=== PATIENT | male | born 1945 | race Caucasian/White ===

== ENCOUNTER → 2016-06-03 | Outpatient (CLI) | payer MEDICARE ==
[~2016-06-03] VITALS: Ht 182.9 cm; Wt 100.7 kg
[~2016-06-03] MED LIST: ASPI81TA28 PO; CARV25TA2 PO; CITA20TA9 PO; CLX/20 PO; CRG25 PO; CRS10 PO; DSY100 PO; GLCSR10 PO; GLIP-197 PO; HYDR25TA4 PO; HYDR25TA5 PO; INSU100I2 SC; LEVO50TA60 PO; LSNP/30 PO; METF-382 PO; METF-384 PO; NTRGSL/4 UT; PRT/40 PO; PRT40 PO; REPA1TAB5 PO; ROSU10TA24 PO; SYN50 PO; TRAZ100T29 PO
[2016-06-03 12:58] VITALS: BP 170/78; PULSE 61; Ht 182.9 cm; Wt 100.7 kg
== END | disposition home or self-care (01) ==
LOC: C.NEUR 12:47
PROVIDERS: ATTEND Internal Medicine Pulmonary Disease
DX: G47.30 Sleep apnea, unspecified (principal)

== ENCOUNTER → 2016-07-15 | Outpatient (CLI) | payer MEDICARE ==
[~2016-07-15] MED LIST changes: +PANT40TA2 PO; -PRT/40 PO
--- NOTE | 2016-07-16 06:41 | PAP/PSG TECHNICIAN REPORT ---
[facility] Wire Stretcher Polysomnogram Report Study name: None Report date: 07/16/2016 Study date: 07/15/2016 Referring Physician: DR. PADGETT Name: KO GALLAGHER Interpreting Physician: Koffi Loredo D.O. Date of : 1945 Wire Stretcher: Tomás Borrego RPSGT. Sex: Male Age: 70 StudyType: PSG Weight: 16.5 inches Height: 70 years, Height Neck Circum: BMI: Medications: ASPIRIN 81 MG, CARVEDILOL 12. 5MG, CELEXA 20 MG, CRESTOR 10 MG, GLIPIZIDE, GLYBURIDE, HYDROCHLOROTHIAZIDE 25MG, LEVOTHYROXINE SODIUM 50 MCG, LISINOPRIL 20 MG, METFORMIN HCL 1000 MG, NITROGLYCERIN 0.4 MG, PANTOPRAZOLE SODIUM 40 MG, TRAZODONE HCL 100 MG, Patient History PATIENT HAS HISTORY OF SNORING, DAYTIME FATIGUE AND DIFFICULTY MAINTAINING SLEEP. HE ALSO HAS HISTORY OF HYPERTENSION, GERD AND CORONARY ARTERY DISEASE. HE IS HERE TODAY FOR AN EVALUATION OF BRONSON. ESS = 7 RM 5 Parameters Monitored NPSG: E1-M2, E2-M1, Fp1-M2, Fp2-M1, F3-M2, F4-M2, F4-M1, C3-M2, C4-M2, C4-M1, O1-M2, O2-M2, O2-M1, T3-M2, T4-M1, P3-M2, P4-M1, CHIN1, CHIN2, HR, EKG, Legs, PFLOW, SNOR, FLOW, CFLOW, Tidal Volume, THOR, ABDO, SpO2, PLTH, CPRESS, ETCO2 Wave, ETCO2, pH Sleep Architecture Sleep Stages Time at Lights Off 10:03:49 PM STAGES Time (min.) TST (%) Time at Lights On 5:30:49 AM Wake 102.5 -- Total Recording Time (TRT) 447.50 min. N1 24.0 7 Total Sleep Period (TSP) 412.0 min. N2 205.0 60 Total Sleep Time (TST) 344.5min. N3 72.5 21 Awake Time 103.0 min. REM 43.0 12 Wake after Sleep Onset 68.0 min. Sleep Efficiency (SE) 77 % Sleep Onset Latency (ROSEMARY) 34.5 min. Number of Stage 1 Shifts None Awakenings 24 Stage Changes 91 Number of REM periods 10 REM 43.0 12 REM Latency 126.0 min. NREM 301.5 88 Body Position Analysis Supine Right Left Side Prone Vertical Total Sleep Time (min.) 9.8 0.0 341.9 341.93 0.0 0.0 Total Sleep Time (%) 1% 0% 99% 99 0% N/A% Total Sleep Time REM (min.) 0.0 0.0 43.0 None 0.0 0.0 Total Sleep Time NREM (min.) 2.6 0.0 298.9 None 0.0 0.0 Intermittent Wake (min.) 7.2 0.0 95.3 None 0.0 0.0 Total Sleep Period (%) 1% None None None None None Arousals Myoclonus (PLM) * Events Count Index Events Count Index Spontaneous 25 4 Events Awake (PLMW) 66 38.6 Respiratory 6 1.7 Events Asleep w/ Arousal (PLMA) 5 0.9 PLM 5 1 Events Asleep w/o Arousal (PLMS) 59 10.3 Snoring 2 0 Total Asleep 64 11.1 Total 38 7 Total 130 17 Respiratory Analysis * CA OA MA CH H RERA Total Count 0 0 0 0 46 1 46 Index 0.0 0.0 0.0 0 8.0 0 8.2 Mean Duration 0.0 0.0 0.0 0.00 20.1 21.2 20.2 Longest Duration 0.0 0.0 0.0 0.00 0.0 21.2 34.4 Respiratory Event Summary Total Supine ~Supine Right Left Prone REM NREM Apneas Count 0 0 0 N/A 0 N/A 0 0 Index 0.0 0 0 N/A 0.0 N/A 0 0 Hypopneas (4% Desat) Count 46 3 43 N/A 43 N/A 8 38 Index 8.0 70.1 8 N/A 7.5 N/A 11.2 7.6 Apneas & All Hypopneas Count 46 3 43 N/A 43 N/A 8 38 Index 8.0 70 8 N/A 8 N/A 11.2 7.6 Respiratory Events (Knock Up Assembler+All Hyp+RERA) Count 46 3 44 N/A 44 N/A 8 38 Index 8.2 70 8 N/A 7.7 N/A 11.2 7.8 Respiratory Related Arousal Count 6 3 7 N/A 7 N/A 1 9 Index 1.7 70 1 N/A 1 N/A 1 2 Snoring Analysis Supine Right Left Prone REM NREM Total Snore duration 8.3 min Snores count 0 N/A 531 N/A 3 528 531 Snore mean duration 0.9 Sec Snores index 0 N/A 93 N/A 4.2 105.1 92.5 TST with snoring (%) 2.4% Desaturation Event Summary: Minimum %SpO2 Event Count Mean/Min/Max Duration(sec.) Desaturation Index % Time In Bed > 90 13 26.8 / 13.8 / 48.5 28.5 6.2 86 - 90 49 28.3 / 13.8 / 64.9 7.3 91.2 81 - 85 1 15.3 / 15.3 / 15.3 5.3 2.6 76 - 80 0 N/A 0.0 0.0 71 - 75 0 N/A 0.0 0.0 66 - 70 0 N/A 0.0 0.0 61 - 65 0 N/A 0.0 0.0 56 - 60 0 N/A 0.0 0.0 51 - 55 0 N/A 0.0 0.0 < 50 0 N/A 0.0 0.0 Total REM NREM Awake <50% 0.0 min. 0.0 min. 0.0 min. 0.0 min. 51 - 60% 0.0 min. 0.0 min. 0.0 min. 0.0 min. 61 - 70% 0.0 min. 0.0 min. 0.0 min. 0.0 min. 71 - 80% 0.0 min. 0.0 min. 0.0 min. 0.0 min. 81 - 90% 412.9 min. 41.7 min. 296.1 min. 75.1 min. 91 - 100% 27.3 min. 1.3 min. 4.6 min. 21.5 min. Average 88 88 88 89 Minimum SpO2 81 82 81 83 Desaturation Event Index 7.0 12.6 7.4 3.5 # Desat. Events below 89% 52 9 37 6 Time(%) with Saturation below 89% 56.5 6.4 43.4 6.7 Time(min.) with Saturation below 89% 248.9 28.3 191.1 29.5 Time (mins) REM (mins) NREM (mins) % of TST SpO2 Below 90% 46 9 N37 87.1 SpO2 Below 88% 22 0 0 25 Heart Rate Analysis Min (bpm) Max (bpm) Average (bpm) Awake 30 127 57 NREM 49 66 54 REM 48 59 53 Overall 48 66 54 Supplemental O2 Values Minimum O2 level: None Value Start Time End Time Wire Stretcher Comments Mr. Gallagher slept in the left and supine positions. No cardiac arrhythmia noted. Leg movements noted. No bruxism noted. Snoring was noted and scored as a 3 on a scale of 1 through 5. (0=no snoring, 5=snoring loud enough to be heard through a closed door or down the [address] way) Mr. Gallagher awoke to use the restroom 1 time during the night. Mr. Gallagher stated I slept as well as I do when I am in my own bed. The final report will be interpreted and signed by a sleep physician. The completed physician report will then be placed in the patient medical record. Therapy (cm H2O) 0 TIB (min.) 447.0 TST (min.) 344.5 Sleep Onset (min.) 34.5 REM Onset From Sleep (min.) 126.0 Sleep Efficiency % 77 Wakefulness (%) 23 Wakefulness (min.) 103.0 NREM 1 (%) 7 NREM 1 (min.) 24.0 NREM 2 (%) 60 NREM 2 (min.) 205.0 NREM 3 (%) 21 NREM 3 (min.) 72.5 REM (%) 12 REM (min.) 43.0 # Arousals 38 Arousal Index 7 # Snore 531 Snore Index 92.5 AHI 8.0 AHI Supine 70 AHI Non-Supine 8 NREM AHI 7.6 REM AHI 11.2 RDI 8.2 # Obstructive Apnea 0 # Central Apnea 0 # Mixed Apnea 0 # Hypopneas 46 RERAs 1 Total Respiratory Events 49 Time Below SpO2 89% (min.) 219.4 Mean NREM SpO2 (%) 88 Mean REM SpO2 (%) 88 Mean Sleep SpO2 (%) 88 Min NREM SpO2 (%) 81 Min REM SpO2 (%) 82 Position Supine (min.) 9.8 Position Non-supine (min.) 341.9 LM Index Sleep 11.1 LM Index NREM 9.0 LM Index REM 26.5 Mean Heart Rate (bpm) 54 Min Heart Rate (bpm) 48
--- NOTE | 2016-07-24 14:26 | POLYSOMNOGRAPH REPORT ---
PRIMARY CARE PHYSICIAN: Dr. Effie De Jesus. REFERRING PHYSICIAN: ANTHONY Tinajero and Dr. Lukas Trevino. CLINICAL DATA: The patient is a 70-year-old male referred by ANTHONY Tinajero. He has a history of snoring, observed apneas, restless legs, fatigue, morning headaches, and daytime somnolence. His comorbidities include hypertension, diabetes mellitus, and coronary artery disease. This was a diagnostic study done in the sleep lab. SLEEP ARCHITECTURE: The total sleep period was 412.0 minutes. Total sleep time was 344.5 minutes. The sleep efficiency was moderately reduced to 77%. The sleep onset latency was prolonged to 34.5 minutes. Wake after sleep onset was increased to 68 minutes. The REM latency was prolonged to 126 minutes. Sleep consisted of stage N1 at 7%, stage N2 at 60%, stage N3 at 21%, and stage REM 12%. AROUSAL DATA: The patient had a total of 38 arousals including 25 spontaneous arousals, 6 respiratory arousals, 5 PLM arousals, and 2 snoring arousals. The arousal index was 7 events per hour. PLM DATA: The patient had a total of 64 periodic limb movements of sleep for an index of 11.1. There were 5 events associated with arousals for a PLM arousal index of 0.9. EKG: The underlying cardiac rhythm was normal sinus. The cardiac rates ranged from 48-66 beats per minute with an average of 54 beats per minute. RESPIRATORY DATA: The patient had a total of 46 respiratory events, all hypopneas. The 4% desaturation rule was used to score hypopneas. The apnea-hypopnea index was mildly elevated at 8.0 events per hour. This is compatible with mild sleep apnea. OXIMETRY DATA: The average saturation was 88%. The minimum saturation was 81%. The patient had a total of 248.9 minutes with saturations less than 89%. PLASTIC BOAT PATCHER COMMENTS: Mr. Gallagher slept in the left and supine positions. No cardiac arrhythmia noted. Leg movements noted. No bruxism noted. Snoring was noted and scored as a 3 on a scale of 1 through 5. IMPRESSION: Obstructive sleep apnea -- mild. COMMENTS: The patient has mild sleep apnea based upon his apnea hypopnea index. Most of the events occurred in the last one-third of the night. He did have [id number] hypoxia throughout much of the night as noted above. There was a mild number of limb movements, but with few arousals. The patient does have several comorbidities for sleep apnea and he has significant symptoms. In light of this, strong consideration is given to treating the sleep apnea even though his apnea is mild. RECOMMENDATIONS: 1. Consideration is given to treatment with nasal CPAP therapy. The options would include doing an in-lab CPAP titration versus treatment with auto CPAP. 2. The patient is advised to avoid sleeping in the supine position as typically there are more events supine. 3. If the patient refused nasal CPAP therapy, consideration could be given to treatment with an oral appliance if he is a candidate based upon his dentition. 4. Weight reduction is advised if the patient's BMI is elevated. MTDD
== END | disposition home or self-care (01) ==
LOC: C.NEUR 21:00
PROVIDERS: ATTEND Internal Medicine Pulmonary Disease
DX: G47.30 Sleep apnea, unspecified (principal)

== ENCOUNTER → 2016-08-10 | Outpatient (CLI) | payer MEDICARE ==
[~2016-08-10] VITALS: Ht 182.9 cm; Wt 100.7 kg
[2016-08-10 15:44] VITALS: BP 148/76; PULSE 73; Ht 182.9 cm; Wt 100.7 kg
== END | disposition home or self-care (01) ==
LOC: C.NEUR 15:00
PROVIDERS: ATTEND Physician Assistant Medical
DX: G47.30 Sleep apnea, unspecified (principal); I25.10 Atherosclerotic heart disease of native coronary artery without angina pectoris; I10 Essential (primary) hypertension

== ENCOUNTER → 2016-11-09 | Outpatient (CLI) | payer MEDICARE ==
[~2016-11-09] MED LIST changes: -PANT40TA2 PO; +PRT/40 PO
--- NOTE | 2016-11-10 05:54 | PAP/PSG TECHNICIAN REPORT ---
[facility] Corduroy Cutting Supervisor Polysomnogram Report Study name: None Report date: 11/10/2016 Study date: 11/09/2016 Referring Physician: Mary Granda PA-C Name: KO GALLAGHER Interpreting Physician: Delfino Patten M.D. Date of : 1945 Corduroy Cutting Supervisor: Tomás Borrego RPSGT. Sex: Male Age: 70 StudyType: PSG PAP Weight: 222 lbs 15 inhces Height: 70 years, Height 6' 0" Neck Circum: BMI: 30.11 Medications: ASPIRIN 81 MG, CARVEDILOL 12. 5MG, CELEXA 20 MG, CRESTOR 10 MG, GLIPIZIDE, GLYBURIDE, HYDROCHLOROTHIAZIDE 25MG, LEVOTHYROXINE SODIUM 50 MCG, LISINOPRIL 20 MG, METFORMIN HCL 1000 MG, NITROGLYCERIN 0.4 MG, PANTOPRAZOLE SODIUM 40 MG, TRAZODONE HCL 100 MG, Patient History PATIENT HAD A SLEEP STUDY DONE IN JULY OF 2016. HE WAS POSITIVE FOR BRONSON WITH AN AHI 8/HR. HE IS HERE TODAY FOR A CPAP TITRATION. RM 5 Parameters Monitored NPSG: E1-M2, E2-M1, Fp1-M2, Fp2-M1, F3-M2, F4-M2, F4-M1, C3-M2, C4-M2, C4-M1, O1-M2, O2-M2, O2-M1, T3-M2, T4-M1, P3-M2, P4-M1, CHIN1, CHIN2, HR, EKG, Legs, PFLOW, SNOR, FLOW, CFLOW, Tidal Volume, THOR, ABDO, SpO2, PLTH, CPRESS, ETCO2 Wave, ETCO2, pH Sleep Architecture Sleep Stages Time at Lights Off 10:07:27 PM STAGES Time (min.) TST (%) Time at Lights On 4:52:57 AM Wake 197.0 -- Total Recording Time (TRT) 406.00 min. N1 24.5 12 Total Sleep Period (TSP) 293.0 min. N2 167.5 80 Total Sleep Time (TST) 208.5min. N3 16.5 8 Awake Time 197.5 min. REM 0.0 0 Wake after Sleep Onset 135.0 min. Sleep Efficiency (SE) 51 % Sleep Onset Latency (ROSEMARY) 62.0 min. Number of Stage 1 Shifts None Awakenings 21 Stage Changes 91 Number of REM periods N/A REM 0.0 0 REM Latency NONE min. NREM 208.5 100 Body Position Analysis Supine Right Left Side Prone Vertical Total Sleep Time (min.) 349.4 0.0 44.5 44.50 0.0 0.0 Total Sleep Time (%) 79% 0% 21% 21 0% N/A% Total Sleep Time REM (min.) 0.0 0.0 0.0 None 0.0 0.0 Total Sleep Time NREM (min.) 164.0 0.0 44.5 None 0.0 0.0 Intermittent Wake (min.) 185.4 0.0 11.6 None 0.0 0.0 Total Sleep Period (%) 81% None None None None None Arousals Myoclonus (PLM) * Events Count Index Events Count Index Spontaneous 29 8 Events Awake (PLMW) 85 25.9 Respiratory 27 9.5 Events Asleep w/ Arousal (PLMA) 1 0.3 PLM 1 0 Events Asleep w/o Arousal (PLMS) 22 6.3 Snoring 1 0 Total Asleep 23 6.6 Total 58 17 Total 108 16 Respiratory Analysis * CA OA MA CH H RERA Total Count 0 5 0 0 32 24 37 Index 0.0 1.4 0.0 0 9.2 7 17.6 Mean Duration 0.0 16.2 0.0 0.00 24.8 16.3 20.7 Longest Duration 0.0 21.3 0.0 0.00 0.0 22.0 40.3 Respiratory Event Summary Total Supine ~Supine Right Left Prone REM NREM Apneas Count 5 5 0 N/A 0 N/A N/A 5 Index 1.4 2 0 N/A 0.0 N/A N/A 1 Hypopneas (4% Desat) Count 32 32 0 N/A 0 N/A N/A 32 Index 9.2 11.7 0 N/A 0.0 N/A N/A 9.2 Apneas & All Hypopneas Count 37 37 0 N/A 0 N/A N/A 37 Index 10.6 14 0 N/A 0 N/A N/A 10.6 Respiratory Events (Stem Frazer+All Hyp+RERA) Count 37 60 1 N/A 1 N/A N/A 37 Index 17.6 22 1 N/A 1.3 N/A N/A 17.6 Respiratory Related Arousal Count 27 60 1 N/A 1 N/A N/A 33 Index 9.5 12 1 N/A 1 N/A N/A 9 Snoring Analysis Supine Right Left Prone REM NREM Total Snore duration 2.8 min Snores count 138 N/A 1 N/A N/A 139 139 Snore mean duration 1.2 Sec Snores index 50 N/A 1 N/A N/A 40.0 40.0 TST with snoring (%) 1.4% Desaturation Event Summary: Minimum %SpO2 Event Count Mean/Min/Max Duration(sec.) Desaturation Index % Time In Bed > 90 38 45.4 / 18.5 / 92.5 6.6 86.3 86 - 90 5 32.2 / 18.5 / 47.3 5.6 13.5 81 - 85 0 N/A 0.0 0.2 76 - 80 0 N/A 0.0 0.0 71 - 75 0 N/A 0.0 0.0 66 - 70 0 N/A 0.0 0.0 61 - 65 0 N/A 0.0 0.0 56 - 60 0 N/A 0.0 0.0 51 - 55 0 N/A 0.0 0.0 < 50 0 N/A 0.0 0.0 Total REM NREM Awake <50% 0.0 min. 0.0 min. 0.0 min. 0.0 min. 51 - 60% 0.0 min. 0.0 min. 0.0 min. 0.0 min. 61 - 70% 0.0 min. 0.0 min. 0.0 min. 0.0 min. 71 - 80% 0.0 min. 0.0 min. 0.0 min. 0.0 min. 81 - 90% 54.6 min. 0.0 min. 27.7 min. 27.0 min. 91 - 100% 344.8 min. 0.0 min. 180.8 min. 163.9 min. Average 92 0 92 93 Minimum SpO2 84 N/A 84 84 Desaturation Event Index 5.8 0.0 9.5 1.8 # Desat. Events below 89% 23 N/A 21 2 Time(%) with Saturation below 89% 1.8 0.0 1.5 0.3 Time(min.) with Saturation below 89% 7.1 0.0 5.8 1.3 Time (mins) REM (mins) NREM (mins) % of TST SpO2 Below 90% 30 N/A N30 7.5 SpO2 Below 88% 16 0 0 1 Heart Rate Analysis Min (bpm) Max (bpm) Average (bpm) Awake 52 250 57 NREM 51 63 56 REM N/A N/A N/A Overall 51 63 56 Supplemental O2 Values Minimum O2 level: None Value Start Time End Time Corduroy Cutting Supervisor Comments Mr. Gallagher slept in the supine and left positions. PAC's noted. Leg movements noted. No bruxism noted. CPAP was initiated at +4 CMH2O and up-titrated to a level of +20 CMH2O. A Resmed Mirage Quattro full face size large was used during titration Mr. Gallagher awoke to use the restroom 1 time during the night. Mr. Gallagher stated I did not sleep as well as I do when I am in my own bed. I was unable to switch to BIPAP due to the patient waking early and being unable to fall back asleep. The final report will be interpreted and signed by a sleep physician. The completed physician report will then be placed in the patient medical record. Therapy Event: Therapy (cm H20) 4 6 7 8 9 10 11 Total Time at Pressure (min.) 2.2 70.5 11.2 9.2 7.1 27.2 23.8 TST at Pressure (min.) 0.0 9.7 9.7 9.2 7.1 27.2 20.3 # Periods 1 1 1 1 1 1 1 Sleep Onset (min.) N/A 59.8 0.0 0.0 0.0 0.0 0.0 REM Onset (min.) N/A N/A N/A N/A N/A N/A N/A Sleep Efficiency % 0 13 86 100 100 100 85 Wakefulness (%) 100.0 86.2 13.4 0.0 0.0 0.0 14.7 Wakefulness (min.) 2.2 60.8 1.5 0.0 0.0 0.0 3.5 NREM 1 (%) 0.0 6.4 17.9 0.0 0.0 1.8 0.6 NREM 1 (min.) 0.0 4.5 2.0 0.0 0.0 0.5 0.1 NREM 2 (%) 0.0 7.4 68.6 100.0 100.0 68.8 48.9 NREM 2 (min.) 0.0 5.2 7.7 9.2 7.1 18.7 11.6 NREM 3 (%) 0.0 0.0 0.0 0.0 0.0 29.4 35.7 NREM 3 (min.) 0.0 0.0 0.0 0.0 0.0 8.0 8.5 REM (%) 0.0 0.0 0.0 0.0 0.0 0.0 0.0 REM (min.) 0.0 0.0 0.0 0.0 0.0 0.0 0.0 # Arousals N/A 5 5 2 0 3 3 Arousal Index N/A 30.9 31.1 13.1 0.0 6.6 8.9 # Snore N/A 1 0 38 22 8 1 Snore Index N/A 6.2 0.0 248.4 186.1 17.6 3.0 AHI N/A 37.0 31.1 13.1 33.8 11.0 8.9 AHI Supine N/A 37.0 31.1 13.1 33.8 11.0 8.9 AHI Non-Supine N/A N/A N/A N/A N/A N/A N/A NREM AHI N/A 37.0 31.1 13.1 33.8 11.0 8.9 REM AHI N/A N/A N/A N/A N/A N/A N/A RDI N/A 37.0 31.1 19.6 33.8 13.2 11.8 # Obstructive N/A 0 1 0 0 0 0 # Central Ap N/A 0 0 0 0 0 0 # Mixed N/A 0 0 0 0 0 0 # Hypopneas N/A 6 4 2 4 5 3 RERAS N/A 0 0 1 0 1 1 Total Respiratory Events N/A 6 5 3 4 6 4 Time Below SpO2 89.00% (min.) 0.0 1.5 1.6 0.3 0.1 1.4 0.7 Mean NREM SpO2 (%) N/A 90 90 91 91 92 92 Mean REM SpO2 (%) N/A N/A N/A N/A N/A N/A N/A Mean Sleep SpO2 (%) N/A 90 90 91 91 92 92 Min NREM SpO2 (%) N/A 84 84 87 88 86 87 Min REM SpO2 (%) N/A N/A N/A N/A N/A N/A N/A Position Supine (min.) 0.0 9.7 9.7 9.2 7.1 27.2 20.3 Position Non-supine (min.) 0.0 0.0 0.0 0.0 0.0 0.0 0.0 LM Index Sleep N/A 18.5 24.9 6.5 8.5 2.2 3.0 LM Index NREM N/A 18.5 24.9 6.5 8.5 2.2 3.0 LM Index REM N/A N/A N/A N/A N/A N/A N/A Mean Heart Rate (bpm) N/A 57 56 56 57 56 57 Min Heart Rate (bpm) N/A 54 54 54 55 54 55 Therapy (cm H20) 12 14 15 17 18 19 20 Total Time at Pressure (min.) 85.8 13.5 70.0 12.8 6.6 7.5 58.1 TST at Pressure (min.) 26.8 10.5 55.4 12.3 6.6 7.5 6.1 # Periods 1 1 1 1 1 1 1 Sleep Onset (min.) 0.0 0.0 0.0 0.0 0.0 0.0 0.0 REM Onset (min.) N/A N/A N/A N/A N/A N/A N/A Sleep Efficiency % 31 78 79 96 100 100 10 Wakefulness (%) 68.7 22.0 20.8 3.9 0.0 0.0 89.5 Wakefulness (min.) 59.0 3.0 14.5 0.5 0.0 0.0 52.0 NREM 1 (%) 8.0 18.5 5.0 25.5 11.0 0.0 0.9 NREM 1 (min.) 6.9 2.5 3.5 3.3 0.7 0.0 0.5 NREM 2 (%) 23.3 59.4 74.2 70.6 89.0 100.0 9.7 NREM 2 (min.) 20.0 8.0 51.9 9.1 5.9 7.5 5.6 NREM 3 (%) 0.0 0.0 0.0 0.0 0.0 0.0 0.0 NREM 3 (min.) 0.0 0.0 0.0 0.0 0.0 0.0 0.0 REM (%) 0.0 0.0 0.0 0.0 0.0 0.0 0.0 REM (min.) 0.0 0.0 0.0 0.0 0.0 0.0 0.0 # Arousals 8 7 7 8 4 5 1 Arousal Index 17.9 40.0 7.6 38.9 36.3 40.1 9.8 # Snore 21 1 2 9 13 23 0 Snore Index 46.9 5.7 2.2 43.8 117.9 184.4 0.0 AHI 2.2 11.4 6.5 4.9 0.0 8.0 9.8 AHI Supine 2.2 11.4 32.9 4.9 0.0 8.0 9.8 AHI Non-Supine N/A N/A 0.0 N/A N/A N/A N/A NREM AHI 2.2 11.4 6.5 4.9 0.0 8.0 9.8 REM AHI N/A N/A N/A N/A N/A N/A N/A RDI 15.6 28.5 7.6 24.3 27.2 40.1 9.8 # Obstructive 0 0 2 1 0 0 1 # Central Ap 0 0 0 0 0 0 0 # Mixed 0 0 0 0 0 0 0 # Hypopneas 1 2 4 0 0 1 0 RERAS 6 3 1 4 3 4 0 Total Respiratory Events 7 5 7 5 3 5 1 Time Below SpO2 89.00% (min.) 0.0 0.0 0.2 0.0 0.0 0.0 0.0 Mean NREM SpO2 (%) 92 93 92 93 94 94 94 Mean REM SpO2 (%) N/A N/A N/A N/A N/A N/A N/A Mean Sleep SpO2 (%) 92 93 92 93 94 94 94 Min NREM SpO2 (%) 89 89 88 91 92 92 92 Min REM SpO2 (%) N/A N/A N/A N/A N/A N/A N/A Position Supine (min.) 26.8 10.5 10.9 12.3 6.6 7.5 6.1 Position Non-supine (min.) 0.0 0.0 44.5 0.0 0.0 0.0 0.0 LM Index Sleep 6.7 11.4 4.3 9.7 0.0 0.0 9.8 LM Index NREM 6.7 11.4 4.3 9.7 0.0 0.0 9.8 LM Index REM N/A N/A N/A N/A N/A N/A N/A Mean Heart Rate (bpm) 55 56 54 57 57 58 57 Min Heart Rate (bpm) 53 54 51 54 56 57 55
--- NOTE | 2016-11-16 12:54 | POLYSOMNOGRAPH REPORT ---
CLINICAL DATA: 70-year-old male with BMI of 30 referred by Mary Granda and myself for CPAP titration study. He had a baseline sleep study in July 2016, which showed mild sleep apnea with an AHI of 8. He is here for a CPAP titration study. SLEEP ARCHITECTURE: Total recording time was 406 minutes. Total sleep period was 293 minutes. Total sleep time was 208.5 minutes; this was all non-REM sleep. Sleep onset latency was delayed at 62 minutes. REM was not achieved. Sleep efficiency was severely reduced at 51%. Wake after sleep onset was 135 minutes. Sleep consisted of stage N1 12%, stage N2 80%, and stage N3 8%. AROUSAL DATA: 58 arousals were recorded for an index of 17 per hour. PLM DATA: 23 limb movements during sleep were noted for an index of 6.6 per hour. RESPIRATORY DATA: The AHI was 10.6. There were 32 hypopneic episodes with a mean duration of 24.8 seconds. The RDI was 17.6. There were 24 RERAs. The longest RERA was 22 seconds. OXIMETRY DATA: Nocturnal hypoxemia was seen. The oxygen danny was 84%. Mean saturation was 92%. Timeout below 88% and 16 minutes. EKG: Heart rates ranged from 51-63 beats per minute. PACs were noted. FACTORY HELPER'S COMMENTS: The patient slept in the supine and left positions. The patient used a ResMed Mirage Quattro full face mask, size large. CPAP was started and was titrated up to 20 cm of water pressure. The patient was still not able to be controlled but the endoscope technician was unable to switch to BiPAP because the patient woke up early and was unable to fall back to sleep. At his final pressure setting at 20 cm of water he slept for only 6 minutes with an AHI of 9.8. IMPRESSION: Mild obstructive sleep apnea/hypopnea with an incomplete CPAP titration study. The patient was not controlled at any pressure between 5 and 20 cm of water pressure. RECOMMENDATIONS: The patient would benefit from treatment with auto CPAP or repeat sleep study with BIPAP. MTDD
== END | disposition home or self-care (01) ==
LOC: C.NEUR 21:00
PROVIDERS: ATTEND Physician Assistant Medical
DX: G47.30 Sleep apnea, unspecified (principal)

== ENCOUNTER → 2016-11-30 | Outpatient (CLI) | payer MEDICARE ==
[~2016-11-30] VITALS: Ht 182.9 cm; Wt 97.6 kg
[2016-11-30 15:26] VITALS: BP 148/84; PULSE 58; Ht 182.9 cm; Wt 97.6 kg
== END | disposition home or self-care (01) ==
LOC: C.NEUR 14:18
PROVIDERS: ATTEND Physician Assistant Medical
DX: G47.30 Sleep apnea, unspecified (principal); I25.10 Atherosclerotic heart disease of native coronary artery without angina pectoris; I10 Essential (primary) hypertension

== ENCOUNTER 2016-12-23 14:51 | Observation (INO) | payer MEDICARE ==
[~2016-12-23] VITALS: Ht 182.9 cm; Wt 96.6 kg
[~2016-12-23 14:51] MED LIST changes: -ASPI81TA28 PO; -CLX/20 PO; -CRG25 PO; -GLCSR10 PO; -HYDR25TA5 PO; -INSU100I2 SC; -LSNP/30 PO; -METF-384 PO; -NTRGSL/4 UT; -PRT/40 PO; -REPA1TAB5 PO; -ROSU10TA24 PO; -SYN50 PO; -TRAZ100T29 PO
[2016-12-23 15:20] LABS: BASO % 0.5 %; BASO ABS # 0.04 K/uL (0-0.2); COMPLETE YES; EOS % 2.3 %; HEMATOCRIT 43.1 % (42-52); IG% 0.3 %; LYMPH % 23.3 %; LYMPH ABS # 1.84 K/uL (1.2-3.4); MEAN CELL VOLUME 91.3 fL (80-100); MEAN CORPUSCULAR HEMOGLOBIN 29.9 pg (25-34); MEAN CORPUSCULAR HGB CONC 32.7 g/dl (32-36); MEAN PLATELET VOLUME 9.9 fL (7.4-10.4); NEUT % 60.6 %; PLATELET COUNT 252 K/uL (130-400); RED BLOOD COUNT 4.72 M/uL (4.7-6.1); WHITE BLOOD COUNT 7.91 K/uL (4.8-10.8)
--- NOTE | 2016-12-23 15:26 | DIAGNOSTIC IMAGING REPORT ---
CHEST ONE VIEW PORTABLE CLINICAL HISTORY: Evaluate Fever/Sepsis fever. Sepsis. COMPARISON STUDY: 06/14/2014 FINDINGS: Prior median sternotomy. Diaphragms are smooth. Chronic atelectatic change left base. No focal infiltrate. IMPRESSION: Chronic change. No acute process. The above report was generated using voice recognition software. It may contain grammatical, syntax or spelling errors. Electronically signed by: Zhang Minaya M.D. 12/23/2016 3:25 PM Dictated Date/Time: 12/23/2016 3:25 PM
[2016-12-23 15:30] LABS: PROTHROMBIN TIME (PATIENT) 10.7 SECONDS (9.0-12.0)
[2016-12-23 15:38] LABS: ALT/SGPT 19 U/L (12-78); AST/SGOT 19 U/L (15-37); BLOOD UREA NITROGEN 17 mg/dl (7-18); BUN/CREATININE RATIO 10.2 (10-20); CALCIUM 9.1 mg/dl (8.5-10.1); CARBON DIOXIDE 31 mmol/L (21-32); CHLORIDE 99 mmol/L (98-107); GLUCOSE 190 mg/dl (70-99); SODIUM 135 mmol/L (136-145)
[2016-12-23] MEDS ORDERED: SYN50 PO (15:40)
[2016-12-23] MEDS ORDERED: METF-384 PO (15:40)
[2016-12-23] MEDS ORDERED: CLX/20 PO (15:40)
[2016-12-23] MEDS ORDERED: CRG25 PO (15:40)
[2016-12-23] MEDS ORDERED: PRT/40 PO (15:40)
[2016-12-23] MEDS ORDERED: GLCSR10 PO (15:40)
[2016-12-23] MEDS ORDERED: REPA1TAB5 PO (15:40)
[2016-12-23] MEDS ORDERED: TRAZ100T29 PO (15:40)
[2016-12-23] MEDS ORDERED: ROSU10TA24 PO (15:40)
[2016-12-23] MEDS ORDERED: HYDR25TA5 PO (15:40)
[2016-12-23] MEDS ORDERED: INSU100I2 SC (15:42)
[2016-12-23 15:43] LABS: ALKALINE PHOSPHATASE 86 U/L (45-117); CKMB/CK RATIO 1.4 (0-3.0)
[2016-12-23] MEDS ORDERED: LSNP/30 PO (16:35)
[2016-12-23] MEDS ORDERED: NTRGSL/4 UT (16:35)
[2016-12-23] MEDS ORDERED: ASPI81TA28 PO (16:35)
--- NOTE | 2016-12-23 17:31 | EMERGENCY ROOM VISIT NOTE ---
History Report prepared by Dejuan: Kacie Pearce Under the Supervision of: Dr. Rod Sims D.O. First contact with patient: 15:03 Chief Complaint: CHEST PAIN Stated Complaint: CHEST PAIN History of Present Illness The patient is a 71 year old male who presents to the Emergency Room with complaints of resolved chest pain which starting 1100 today. His pain was in the middle of his chest. It started while he was going up and down stairs. It seemed to resolve after rest. Later, he was driving to his physical therapy appointment when the pain started again. It was worse this time. He had some slight SOB and nausea with the chest pain. He denies any diaphoresis. He currently does not have any symptoms. He has not had a stress test or cardiac catheterization in the past year. He has a history of CABG. His chest pain today was unlike his previous chest pain prior to CABG. Source of History: patient Onset: 1100 Position: chest (mid) Quality: other (pain) Timing: resolved Modifying Factors (Worsening): exertion Associated Symptoms: + SOB, + nausea, No diaphoresis Review of Systems See HPI for pertinent positives & negatives. A total of 10 systems reviewed and were otherwise negative. Past Medical & Surgical Medical Problems: (1) Coronary bypass (2) Diabetes mellitus (3) Heart disease (4) Replacement of total knee joint Family History Diabetes mellitus FH: cancer FH: heart disease Hypertension Social History Smoking Status: Never Smoker Alcohol Use: none Drug Use: none Marital Status: Housing Status: lives with family Occupation Status: employed Current/Historical Medications Scheduled Aspirin (Aspirin Ec), 81 MG PO QAM Carvedilol (Carvedilol), 25 MG PO BID Citalopram (Citalopram Hydrobromide), 20 MG PO QAM Glipizide (Glipizide ER), 10 MG PO QAM Hydrochlorothiazide (Hydrochlorothiazide), 25 MG PO QAM Levothyroxine Sodium (Synthroid), 50 MCG PO QAM Lisinopril (Zestril), 30 MG PO QPM Metformin Hcl (Glucophage), 1,000 MG PO BID Pantoprazole (Pantoprazole Sodium), 40 MG PO QAM Repaglinide (Prandin), 0.5 MG PO AC Rosuvastatin Calcium (Rosuvastatin Calcium), 10 MG PO QPM Trazodone Hcl (Trazodone), 100 MG PO HS Scheduled PRN Insulin Lispro (Human) (Humalog Kwikpen), 1 DOSE SC UD PRN for BSG Coverage Nitroglycerin (Nitrostat), 0.4 MG UT UD PRN for Chest Pain Allergies Coded Allergies: Morphine (Verified Allergy, Intermediate, Itchy, 05/01/15) Physical Exam Vital Signs Date Time Temp Pulse Resp B/P (MAP) Pulse Ox O2 Delivery O2 Flow Rate FiO2 12/23/16 17:12 56 17 94 12/23/16 16:42 56 18 93 12/23/16 16:12 57 22 95 12/23/16 16:07 147/68 12/23/16 15:51 58 16 12/23/16 15:21 57 21 12/23/16 15:16 60 12/23/16 15:13 Room Air 12/23/16 14:57 36.5 63 20 153/71 97 Room Air Physical Exam CONSTITUTIONAL/VITAL SIGNS: Reviewed / noted above. GENERAL: Non-toxic in appearance. INTEGUMENTARY: Warm, dry, and [place]. HEAD: Normocephalic. EYES: without scleral icterus or trauma. ENT/OROPHARYNX: clear and moist. LYMPHADENOPATHY/NECK: Is supple without lymphadenopathy or meningismus. RESPIRATORY: Lungs clear and equal. CARDIOVASCULAR: Regular rate and rhythm. GI/ABDOMEN: Soft and nontender. No organomegaly or pulsatile mass. No rebound or guarding. Normal bowel sounds. EXTREMITIES: Warm and well perfused. BACK: No CVA tenderness. NEUROLOGICAL: Intact without focal deficits. PSYCHIATRIC: normal affect. MUSCULOSKELETAL: Normally developed with good muscle tone. Medical Decision & Procedures ER Provider Diagnostic Interpretation: X ray results and stated below per my interpretation and radiology interpretation. CHEST ONE VIEW PORTABLE CLINICAL HISTORY: Evaluate Fever/Sepsis fever. Sepsis. COMPARISON STUDY: 06/14/2014 FINDINGS: Prior median sternotomy. Diaphragms are smooth. Chronic atelectatic change left base. No focal infiltrate. IMPRESSION: Chronic change. No acute process. The above report was generated using voice recognition software. It may contain grammatical, syntax or spelling errors. Electronically signed by: Zhang Minaya M.D. 12/23/2016 3:25 PM Dictated Date/Time: 12/23/2016 3:25 PM Laboratory Results 12/23/16 15:05 Red Blood Count 4.72, Mean Corpuscular Volume 91.3, Mean Corpuscular Hemoglobin 29.9, Mean Corpuscular Hemoglobin Concent 32.7, Mean Platelet Volume 9.9, Neutrophils (%) (Auto) 60.6, Lymphocytes (%) (Auto) 23.3, Monocytes (%) (Auto) 13.0, Eosinophils (%) (Auto) 2.3, Basophils (%) (Auto) 0.5, Neutrophils # (Auto ) 4.80, Lymphocytes # (Auto) 1.84, Monocytes # (Auto) 1.03, Eosinophils # (Auto ) 0.18, Basophils # (Auto) 0.04 12/23/16 15:05 Test 12/23/16 15:05 White Blood Count 7.91 K/uL (4.8-10.8) Red Blood Count 4.72 M/uL (4.7-6.1) Hemoglobin 14.1 g/dL (14.0-18.0) Hematocrit 43.1 % (42-52) Mean Corpuscular Volume 91.3 fL (80-100) Mean Corpuscular Hemoglobin 29.9 pg (25-34) Mean Corpuscular Hemoglobin Concent 32.7 g/dl (32-36) Platelet Count 252 K/uL (130-400) Mean Platelet Volume 9.9 fL (7.4-10.4) Neutrophils (%) (Auto) 60.6 % Lymphocytes (%) (Auto) 23.3 % Monocytes (%) (Auto) 13.0 % Eosinophils (%) (Auto) 2.3 % Basophils (%) (Auto) 0.5 % Neutrophils # (Auto) 4.80 K/uL (1.4-6.5) Lymphocytes # (Auto) 1.84 K/uL (1.2-3.4) Monocytes # (Auto) 1.03 K/uL (0.11-0.59) Eosinophils # (Auto) 0.18 K/uL (0-0.5) Basophils # (Auto) 0.04 K/uL (0-0.2) RDW Standard Deviation 46.7 fL (36.4-46.3) RDW Coefficient of Variation 13.8 % (11.5-14.5) Immature Granulocyte % (Auto) 0.3 % Immature Granulocyte # (Auto) 0.02 K/uL (0.00-0.02) Prothrombin Time 10.7 SECONDS (9.0-12.0) Prothromb Time International Ratio 1.0 (0.9-1.1) Activated Partial Thromboplast Time 26.9 SECONDS (21.0-31.0) Partial Thromboplastin Ratio 1.0 Anion Gap 5.0 mmol/L (3-11) Est Creatinine Clear Calc Drug Dose 49.1 ml/min Estimated GFR () 46.3 Estimated GFR (Non- 40.0 BUN/Creatinine Ratio 10.2 (10-20) Calcium Level 9.1 mg/dl (8.5-10.1) Total Bilirubin 0.4 mg/dl (0.2-1) Direct Bilirubin 0.1 mg/dl (0-0.2) Aspartate Amino Transf (AST/SGOT) 19 U/L (15-37) Alanine Aminotransferase (ALT/SGPT) 19 U/L (12-78) Alkaline Phosphatase 86 U/L (45-117) Total Creatine Kinase 87 U/L (39-308) Creatine Kinase MB 1.2 ng/ml (0.5-3.6) Creatine Kinase MB Ratio 1.4 (0-3.0) Troponin I < 0.015 ng/ml (0-0.045) Total Protein 7.7 gm/dl (6.4-8.2) Albumin 3.7 gm/dl (3.4-5.0) Lipase 141 U/L (73-393) Laboratory results as stated above per my review. ECG Indication: chest pain Rate (beats per minute): 59 Rhythm: sinus bradycardia Findings: no ectopy, other (no acute injury) ED Course 1513: Previous medical records were reviewed. The patient was evaluated in room B2. A complete history and physical examination was performed. 1706: On reevaluation, the patient is resting comfortably. I discussed the results and findings with him. He verbalized agreement of the treatment plan. The patient will be evaluated for further management and care. 1712: I discussed the patient's case Dr. Dietz, [facility] hospitalist. The patient will be evaluated for further treatment and disposition. Medical Decision the differential was considered includes acute myocardial infarction, acute coronary syndrome, myocarditis, pericarditis, pericardial effusions /tamponad, esophageal perforation, thoracic aortic dissection, pulmonary embolism, pneumonia, pneumothorax, pancreatitis, shingles, acute cholecystitis, perforated abdominal viscus. This is a 71-year-old male who presents to the ED with a chief complaint of retrosternal chest pain while he was going up some stairs today. He states that it helped when he rested. The patient states that he also has some chest discomfort while he was driving here today. He had some slight shortness of breath and nausea. The patient reports a history of bypass surgery in 2002. He is currently asymptomatic. His vital signs are stable. His physical exam was unremarkable. Laboratory studies including CBC, complete metabolic panel, troponin were normal. EKG did not show any ischemic change. Chest x-ray was negative for acute disease. The patient was told the results. Because of his symptoms, he will be observed in the hospital and evaluated by cardiology services for unstable angina. Medication Reconcilliation Current Medication List: was personally reviewed by me Consults Time Called: 1709 Consulting Physician: Dr. Dietz, [facility] hospitalist Returned Call: 1712 Discussed the patient's case. The patient will be evaluated for further treatment and disposition. Impression Primary Impression: Exertional chest pain Scribe Attestation The scribe's documentation has been prepared under my direction and personally reviewed by me in its entirety. I confirm that the note above accurately reflects all work, treatment, procedures, and medical decision making performed by me. Departure Information Dispostion Being Evaluated By Hospitalist Referrals Zari Robertson (PCP) Patient Instructions My [facility]
[2016-12-23] MEDS ORDERED: NITROGLYCERIN OINT 2% 1GM PACKET ONE (18:35)
[2016-12-23] MEDS ORDERED: GLUCAGON FOR INJ 1 MG VIAL SQ PRN (18:45)
[2016-12-23] MEDS ORDERED: ONDANSETRON INJ 2 MG/ML 2 ML VIAL IV PRN (18:45)
[2016-12-23] MEDS ORDERED: GLUCOSE 40% GEL 15 GM TUBE PO PRN (18:45)
[2016-12-23] MEDS ORDERED: HydrALAZINE HCL 20 MG/ML VIAL IV. PRN (18:45)
[2016-12-23] MEDS ORDERED: POLYETHYLENE (MIRALAX) 17 GM PACK PO PRN (18:45)
[2016-12-23] MEDS ORDERED: GLUCOSE 10 TABS/TUBE PO PRN (18:45)
[2016-12-23] MEDS ORDERED: DEXTROSE 50% 50 ML SYR IV PRN (18:45)
[2016-12-23] MEDS ORDERED: ACETAMINOPHEN 325 MG TAB PO PRN (18:45)
--- NOTE | 2016-12-23 19:01 | History and Physical ---
History & Physical Date & Time of Service: Dec 23, 2016 at 18:44 Chief Complaint: Chest Pain Primary Care Physician: Zari Robertson History of Present Illness Source: patient This is a 71-year-old male with PMHx of hypertension, hyperlipidemia, previous MO, history of CABG x 3 in 2012, hypothyroidism, CKD stage III, left knee osteoarthritis and multiple revisions, DM II, mild sleep apnea, who presents with exertional chest pain which started at 11 AM, 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 The pain continued to wax and wane since then despite sitting down and resting. He currently has chest pain and rates it a 6/10, whereas initially it was an 8/10. He admits to slight shortness of breath at the onset of this pain. Denies any lightheadedness, dizziness, chest tightness, palpitation, flutter, radiation of the pain into his arms, jaw, or back. The patient has seen cardiology, Dr. Duran on a yearly basis since his CABG in 2002. He has not had any stress testing within the past 5 years. The patient notes the last time he ate was on the way here at approximately 2 PM and had a few small crackers. The patient typically ambulates with a cane due to recent left TKA revision (3 mo ago). Past Medical/Surgical History Medical Problems: (1) Coronary bypass 2002 Status: Resolved (2) Diabetes mellitus Status: Chronic (3) Heart disease Status: Chronic (4) Replacement of total knee joint Status: Resolved Hypertension Hyperlipidemia Hypothyroidism CKG stage III Mild sleep apnea Surgical history: CABG 2003 Left TKA in 2008, status post 3 revisions, most recent was in September 2016 Family History Diabetes mellitus FH: cancer FH: heart disease Hypertension Social History Smoking Status: Never Smoker Smokeless Tobacco Use: No Alcohol Use: none Drug Use: none Marital Status: Occupational Status: employed Immunizations History of Influenza Vaccine: Yes Influenza Vaccine Date: Jan 29, 2006 History of Tetanus Vaccine?: Yes History of Pneumococcal: Yes History of Hepatitis B Vaccine: Unknown Multi-Drug Resistant Organisms History of MDRO: No Allergies Coded Allergies: Morphine (Verified Allergy, Intermediate, Itchy, 05/01/15) Home Medications Scheduled Aspirin (Aspirin Ec), 81 MG PO QAM Carvedilol (Carvedilol), 25 MG PO BID Citalopram (Citalopram Hydrobromide), 20 MG PO QAM Glipizide (Glipizide ER), 10 MG PO QAM Hydrochlorothiazide (Hydrochlorothiazide), 25 MG PO QAM Levothyroxine Sodium (Synthroid), 50 MCG PO QAM Lisinopril (Zestril), 30 MG PO QPM Metformin Hcl (Glucophage), 1,000 MG PO BID Pantoprazole (Pantoprazole Sodium), 40 MG PO QAM Repaglinide (Prandin), 0.5 MG PO AC Rosuvastatin Calcium (Rosuvastatin Calcium), 10 MG PO QPM Trazodone Hcl (Trazodone), 100 MG PO HS Scheduled PRN Insulin Lispro (Human) (Humalog Kwikpen), 1 DOSE SC UD PRN for BSG Coverage Nitroglycerin (Nitrostat), 0.4 MG UT UD PRN for Chest Pain Review of Systems Constitutional: No fever, sweats or chills Eyes: No diplopia, no worsening or blurred vision ENT: normal hearing, no trouble swallowing Respiratory: No cough, sputum, dyspnea at rest or on exertion Cardiovascular: See HPI Abdomen: No pain, nausea, vomiting, diarrhea or constipation Musculoskeletal: L knee joint pain with ambulation. No calf pain, swelling Neurologic: No weakness, numbness/tingling, or balance problems Psychiatric: No anxiety or depression Skin: No rash or itch Physical Exam Vital Signs Date Time Temp Pulse Resp B/P (MAP) Pulse Ox O2 Delivery O2 Flow Rate FiO2 12/23/16 17:12 56 17 94 12/23/16 16:42 56 18 93 12/23/16 16:12 57 22 95 12/23/16 16:07 147/68 12/23/16 15:51 58 16 12/23/16 15:21 57 21 12/23/16 15:16 60 12/23/16 15:13 Room Air 12/23/16 14:57 36.5 63 20 153/71 97 Room Air General: awake, alert, no apparent distress Head: Normocephalic, atraumatic ENT: PERRL, EOMI, no pharyngeal exudate, mucous membranes moist Chest: Clear to auscultation, on room air, no adventitious breath sounds Cardiac: Chest nontender to palpation, + bradycardic, no murmur, no JVD, normal peripheral pulses, good capillary refill Abdominal: NABS x 4 quadrants, soft, nontender to palpation, no rebound, guarding or tenderness Extremities: L knee s/p revision, healing well, no signs of erythema, + warmth over the lateral side however nontender. +small area of edema with + fluid wave. Normal inspection otherwise, no peripheral edema or erythema, calfs nontender to palpation Psych: Normal mood and affect Neuro: AAO x 3, strength intact bilaterally and related 5/5, no motor deficits, speech is clear, no peripheral sensory deficits Diagnostics Laboratory Results Results Past 24 Hours Test 12/23/16 15:05 Range/Units White Blood Count 7.91 4.8-10.8 K/uL Red Blood Count 4.72 4.7-6.1 M/uL Hemoglobin 14.1 14.0-18.0 g/dL Hematocrit 43.1 42-52 % Mean Corpuscular Volume 91.3 80-100 fL Mean Corpuscular Hemoglobin 29.9 25-34 pg Mean Corpuscular Hemoglobin Concent 32.7 32-36 g/dl Platelet Count 252 130-400 K/uL Mean Platelet Volume 9.9 7.4-10.4 fL Neutrophils (%) (Auto) 60.6 % Lymphocytes (%) (Auto) 23.3 % Monocytes (%) (Auto) 13.0 % Eosinophils (%) (Auto) 2.3 % Basophils (%) (Auto) 0.5 % Neutrophils # (Auto) 4.80 1.4-6.5 K/uL Lymphocytes # (Auto) 1.84 1.2-3.4 K/uL Monocytes # (Auto) 1.03 0.11-0.59 K/uL Eosinophils # (Auto) 0.18 0-0.5 K/uL Basophils # (Auto) 0.04 0-0.2 K/uL RDW Standard Deviation 46.7 36.4-46.3 fL RDW Coefficient of Variation 13.8 11.5-14.5 % Immature Granulocyte % (Auto) 0.3 % Immature Granulocyte # (Auto) 0.02 0.00-0.02 K/uL Prothrombin Time 10.7 9.0-12.0 SECONDS Prothromb Time International Ratio 1.0 0.9-1.1 Activated Partial Thromboplast Time 26.9 21.0-31.0 SECONDS Partial Thromboplastin Ratio 1.0 Sodium Level 135 136-145 mmol/L Potassium Level 4.0 3.5-5.1 mmol/L Chloride Level 99 98-107 mmol/L Carbon Dioxide Level 31 21-32 mmol/L Anion Gap 5.0 3-11 mmol/L Blood Urea Nitrogen 17 7-18 mg/dl Creatinine 1.70 0.60-1.40 mg/dl Est Creatinine Clear Calc Drug Dose 49.1 ml/min Estimated GFR () 46.3 Estimated GFR (Non- 40.0 BUN/Creatinine Ratio 10.2 10-20 Random Glucose 190 70-99 mg/dl Calcium Level 9.1 8.5-10.1 mg/dl Total Bilirubin 0.4 0.2-1 mg/dl Direct Bilirubin 0.1 0-0.2 mg/dl Aspartate Amino Transf (AST/SGOT) 19 15-37 U/L Alanine Aminotransferase (ALT/SGPT) 19 12-78 U/L Alkaline Phosphatase 86 45-117 U/L Total Creatine Kinase 87 39-308 U/L Creatine Kinase MB 1.2 0.5-3.6 ng/ml Creatine Kinase MB Ratio 1.4 0-3.0 Troponin I < 0.015 0-0.045 ng/ml Total Protein 7.7 6.4-8.2 gm/dl Albumin 3.7 3.4-5.0 gm/dl Lipase 141 73-393 U/L Diagnostic Radiology CHEST ONE VIEW PORTABLE CLINICAL HISTORY: Evaluate Fever/Sepsis fever. Sepsis. COMPARISON STUDY: 06/14/2014 FINDINGS: Prior median sternotomy. Diaphragms are smooth. Chronic atelectatic change left base. No focal infiltrate. IMPRESSION: Chronic change. No acute process. The above report was generated using voice recognition software. It may contain grammatical, syntax or spelling errors. Electronically signed by: Zhang Minaya M.D. 12/23/2016 3:25 PM Dictated Date/Time: 12/23/2016 3:25 PM The status of this report is Signed. EKG Vent. rate 59 BPM MA interval 162 ms QRS duration 80 ms QT/QTc 402/397 ms P-R-T axes 71 -8 47 Sinus bradycardia Nonspecific T wave abnormality Abnormal ECG When compared with ECG of 15-JUN-2014 07:46, No significant change was found Confirmed by CLIFFORD GUERRERO ([id number]) on 12/23/2016 4:34:05 PM Impression Assessment and Plan This is a 71-year-old male with PMHx of hypertension, hyperlipidemia, previous MO, history of CABG x 3 in 2012, hypothyroidism, CKD stage III, left knee osteoarthritis and multiple revisions, DM II, and mild sleep apnea who presents with exertional chest pain which started at 11 AM, 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 Chest pain CAD s/p CABG x 3 in 2012 - Admit to telemetry for observation - Initial troponin is negative, trending 2 more sets. Follow CK-MB 2 sets - EKG reviewed showing sinus bradycardia - Patient follows with Dr. Duran as an outpatient annually, will need follow-up arranged at time of discharge - EKG QAM - 2-D echo ordered Hypertension -Continue carvedilol 25 BID, ASA 81 mg daily, hydrochlorothiazide 25 mg daily, -Holding lisinopril 30 mg daily with elevated Cr. Hyperlipidemia -Continue rosuvastatin 10 mg daily CKD stage III - Creatinine elevated at 1.7, baseline appears to be around 1.2-1.4 - Holding lisinopril and metformin, avoid nephrotoxic agents for now - Encourage oral hydration DM II - Holding metformin and glipizide - Place on an ISS with Accu-Cheks ACHS - Checking hemoglobin A1c - Continue repaglinide 0.5 mg with meals GERD - Continue pantoprazole 40 mg daily Insomnia -Continue trazodone 100 mg QHS. Patient has weaned himself down to 100 mg from 150. The patient was asked to follow up with his PCP regarding continuing to wean off this medication as tolerated Mild sleep apnea - Sleep study was completed on 07/15/16 - Patient was recently started on CPAP at home, reports he has worn it 2/3 of the time out of the last week and a half since seeing his PCP Mary Granda. He reports no difference in wearing it versus not wearing it at this point. Pt has requested to have his brought from home. DVT prophylaxis: Teds, SCDs, heparin subq CODE STATUS: Full code Disposition: Patient from home, lives with , no CM needs anticipated Level of Care Telemetry Advanced Directives Existing Advance Directive: No Existing Living Will: No Existing Power of Allergy And Immunology Specialist: No Existing Health Care Proxy: No Resuscitation Status FULL RESUSCITATION VTE Prophylaxis VTE Risk Assessment Done? Y/N: Yes Risk Level: Low Given or contraindicated: Unfractionated heparin SQ, T.E.D. Stockings, SCD's
[2016-12-23] MEDS ORDERED: IV FLUIDS COMPLETED PRN (20:00)
[2016-12-23 20:35] VITALS: BP_SYST 183; BP_SYST 187; BP_DIAS 79; BP_DIAS 84; PULSE 52; TEMP 36.5; O2SAT 95; Ht 182.9 cm; Wt 96.6 kg
[2016-12-23] MEDS ORDERED: TRAZODONE HCL 100 MG TAB PO SCH (21:00)
[2016-12-23] MEDS ORDERED: ROSUVASTATIN CALCIUM 10 MG TAB PO SCH (21:00)
[2016-12-23 21:51] VITALS: BP 147/69; PULSE 59; O2SAT 93
[2016-12-23] MEDS: CARVEDILOL 25 MG TAB PO SCH (21:59)
[2016-12-23] MEDS: INSULIN ASPART 100 UNITS/ML 3 ML PEN SC SCH (22:02)
[2016-12-23] MEDS: HEPARIN SOD 5000 UNIT/0.5 ML CARP SQ SCH (22:04)
[2016-12-23 23:43] VITALS: BP 123/59; PULSE 56; TEMP 36.6; O2SAT 92
[2016-12-24] VITALS (7 sets, daily range): BP systolic 129–153; BP diastolic 55–79; PULSE 54–60; TEMP 36.4–36.9; O2SAT 92–95
[2016-12-24] MEDS: REPAGLINIDE 1 MG TAB PO SCH ×3 (05:42→16:54)
[2016-12-24 06:09] LABS: BASO % 0.7 %; BASO ABS # 0.05 K/uL (0-0.2); COMPLETE YES; EOS % 3.1 %; HEMATOCRIT 40.3 % (42-52); IG% 0.1 %; LYMPH % 25.9 %; LYMPH ABS # 1.99 K/uL (1.2-3.4); MEAN CELL VOLUME 91.2 fL (80-100); MEAN CORPUSCULAR HEMOGLOBIN 29.6 pg (25-34); MEAN CORPUSCULAR HGB CONC 32.5 g/dl (32-36); MONO % 13.2 %; PLATELET COUNT 220 K/uL (130-400); RED BLOOD COUNT 4.42 M/uL (4.7-6.1); WHITE BLOOD COUNT 7.67 K/uL (4.8-10.8)
[2016-12-24] MEDS ORDERED: LEVOTHYROXINE 50 MCG TAB PO SCH (06:30)
[2016-12-24 06:49] LABS: BLOOD UREA NITROGEN 16 mg/dl (7-18); BUN/CREATININE RATIO 9.2 (10-20); CARBON DIOXIDE 32 mmol/L (21-32); CHLORIDE 103 mmol/L (98-107); GLUCOSE 108 mg/dl (70-99); POTASSIUM 3.6 mmol/L (3.5-5.1); SODIUM 141 mmol/L (136-145)
[2016-12-24 06:54] LABS: ESTIMATED AVERAGE GLUCOSE 163 mg/dl; HA1C FLAG Normal (Normal)
[2016-12-24] MEDS: CARVEDILOL 25 MG TAB PO SCH (08:03)
[2016-12-24] MEDS: INSULIN ASPART 100 UNITS/ML 3 ML PEN SC SCH ×3 (08:05→17:20)
[2016-12-24] MEDS: HEPARIN SOD 5000 UNIT/0.5 ML CARP SQ SCH (08:06)
[2016-12-24] MEDS ORDERED: PANTOprazole SOD 40 MG TAB PO SCH (09:00)
[2016-12-24] MEDS ORDERED: ASPIRIN 81 MG ECTAB PO SCH (09:00)
[2016-12-24] MEDS ORDERED: HYDROCHLOROTHIAZIDE 25 MG TAB PO SCH (09:00)
[2016-12-24] MEDS ORDERED: CITALOPRAM 20 MG TAB PO SCH (09:00)
--- NOTE | 2016-12-24 15:41 | Cardiology Consultation ---
Cardiology Consultation Date of Consultation: Dec 24, 2016. Requesting Physician: Dr. Villegas Attending Physician: Dr. Frederick Reason for Consultation: Chest pain Pt evaluation today including: conversation w/ patient, physical exam, chart review, lab review History of Present Illness 71 yoM with PMHx of hypertension, hyperlipidemia, previous VT, history of CABG x 3 in 2012, hypothyroidism, CKD stage III, left knee osteoarthritis and multiple revisions, DM II, mild sleep apnea on CPAP who presented with chest pain to the ED on 12/23. Pt reports was doing some work at [email or web address] when pain started about 11am and lasted for about an hour until noon. Pain was achy/sharp in quality, did not radiate to back, shoulder, jaw or arms. Associated with mild sob. Denies syncope, and palpitations. 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 Pt lasted for a few hours at the ED despite treatment but eventually resolved and has not returned. Pt reports cp was different than the exertional cp he had in the past before his cardiac surgery. Pt denies hx of GERD like symptoms. Pt feels well today and remains asymptomatic Past Medical/Surgical History Previous VT with CABG x 3 in 2012 HTN HLD Hypothyroidism CKD stage 3 L knee osteoarthritis with multiple revisions Family History Diabetes mellitus FH: cancer FH: heart disease Hypertension Social History Smoking Status: Never Smoker History of Alcohol Use: No Review of Systems Constitutional: + fatigue Respiratory: No shortness of breath Cardiac: No chest pain, No orthopnea, No edema, No palpitations Abdomen: No pain, No nausea, No vomiting Allergies Coded Allergies: Morphine (Verified Allergy, Intermediate, Itchy, 05/01/15) Medications Current Inpatient Medications Medications (Trade) Dose Ordered Sig/William Route Start Time Stop Time Status Last Admin Dose Admin Heparin Sodium (Porcine) (Heparin Sq 5000 Unit/0.5ml) 5,000 unit Q12 SQ 12/23/16 22:00 01/22/17 21:59 12/24/16 08:06 5,000 UNIT Acetaminophen (Tylenol Tab) 650 mg Q4H PRN PO 12/23/16 18:45 01/22/17 18:44 Ondansetron HCl (Zofran Inj) 4 mg Q6H PRN IV 9/14/17 18:45 01/22/17 18:44 Polyethylene (Miralax Powder Packet) 17 gm DAILY PRN PO 12/23/16 18:45 01/22/17 18:44 Aspirin (Ecotrin Tab) 81 mg QAM PO 12/24/16 09:00 01/23/17 08:59 12/24/16 08:03 81 MG Carvedilol (Coreg Tab) 25 mg BID PO 12/23/16 21:00 01/22/17 20:59 12/24/16 08:03 25 MG Citalopram Hydrobromide (celeXA TAB) 20 mg QAM PO 12/24/16 09:00 01/23/17 08:59 12/24/16 08:03 20 MG Hydrochlorothiazide (Hydrochlorothiazide Tab) 25 mg QAM PO 12/24/16 09:00 01/23/17 08:59 12/24/16 08:03 25 MG Levothyroxine Sodium (Synthroid Tab) 50 mcg DAILYBB PO 12/24/16 06:30 01/23/17 06:59 12/24/16 05:41 50 MCG Pantoprazole Sodium (Protonix Tab) 40 mg QAM PO 12/24/16 09:00 01/23/17 08:59 12/24/16 08:02 40 MG Repaglinide (Prandin Tab) 0.5 mg AC PO 12/24/16 06:30 01/23/17 07:59 12/24/16 11:52 0.5 MG Rosuvastatin Calcium (Crestor Tab) 10 mg QPM PO 12/23/16 21:00 01/22/17 20:59 12/23/16 21:59 10 MG Trazodone HCl (Desyrel Tab) 100 mg HS PO 12/23/16 21:00 01/22/17 20:59 12/23/16 22:00 100 MG Insulin Aspart (novoLOG ASPART) SLIDING SCALE If C... ACHS SC 12/23/16 21:00 01/22/17 20:59 12/24/16 12:07 7 UNITS Glucose (Glucose 40% Gel) 15-30 GRAMS 15 GRAMS... UD PRN PO 12/23/16 18:45 01/22/17 18:44 Glucose (Glucose Chew Tab) 4-8 Tablets 4 Tabl... UD PRN PO 12/23/16 18:45 01/22/17 18:44 Dextrose (Dextrose 50% 50ML Syringe) 25-50ML OF 50% DW IV FOR... UD PRN IV 12/23/16 18:45 01/22/17 18:44 Glucagon (Glucagon Inj) 1 mg UD PRN SQ 12/23/16 18:45 01/22/17 18:44 Hydralazine HCl (HydrALAZINE INJ) 10 mg Q4 PRN IV. 12/23/16 18:45 01/22/17 18:44 Miscellaneous (Iv Fluids Completed) 1 ea PRN PRN N/A 12/23/16 20:00 12/23/17 19:59 Physical Exam Vital Signs Past 12 Hours Date Time Temp Pulse Resp B/P (MAP) Pulse Ox O2 Delivery O2 Flow Rate FiO2 12/24/16 12:07 36.9 55 16 129/55 (79) 92 Room Air 12/24/16 08:00 Room Air 12/24/16 07:41 36.4 60 16 153/79 (103) 94 Room Air 12/24/16 04:00 36.5 54 16 133/70 (91) 92 Room Air 12/24/16 04:00 Room Air Head: normocephalic, atraumatic Lungs: Respiratory effort: good air movement Auscultation: breath sounds normal Cardiovascular: Heart Auscultation: RRR, normal S1, normal S2, no murmurs Peripheral Pulses: Bruits: none appreciated Radial Pulse: normal on the left, normal on the right Extremities: no edema Data Laboratory Results: Last 24 Hours Test 12/23/16 19:17 12/23/16 20:59 12/24/16 05:52 12/24/16 07:01 Creatine Kinase MB 1.0 ng/ml 0.8 ng/ml Creatine Kinase MB Ratio Troponin I < 0.015 ng/ml < 0.015 ng/ml Bedside Glucose 77 mg/dl 110 mg/dl White Blood Count 7.67 K/uL Red Blood Count 4.42 M/uL Hemoglobin 13.1 g/dL Hematocrit 40.3 % Mean Corpuscular Volume 91.2 fL Mean Corpuscular Hemoglobin 29.6 pg Mean Corpuscular Hemoglobin Concent 32.5 g/dl Platelet Count 220 K/uL Mean Platelet Volume 10.0 fL Neutrophils (%) (Auto) 57.0 % Lymphocytes (%) (Auto) 25.9 % Monocytes (%) (Auto) 13.2 % Eosinophils (%) (Auto) 3.1 % Basophils (%) (Auto) 0.7 % Neutrophils # (Auto) 4.37 K/uL Lymphocytes # (Auto) 1.99 K/uL Monocytes # (Auto) 1.01 K/uL Eosinophils # (Auto) 0.24 K/uL Basophils # (Auto) 0.05 K/uL RDW Standard Deviation 46.1 fL RDW Coefficient of Variation 13.9 % Immature Granulocyte % (Auto) 0.1 % Immature Granulocyte # (Auto) 0.01 K/uL Sodium Level 141 mmol/L Potassium Level 3.6 mmol/L Chloride Level 103 mmol/L Carbon Dioxide Level 32 mmol/L Anion Gap 6.0 mmol/L Blood Urea Nitrogen 16 mg/dl Creatinine 1.70 mg/dl Est Creatinine Clear Calc Drug Dose 48.7 ml/min Estimated GFR () 46.3 Estimated GFR (Non- 40.0 BUN/Creatinine Ratio 9.2 Random Glucose 108 mg/dl Estimated Average Glucose 163 mg/dl Hemoglobin A1c 7.3 % Calcium Level 9.0 mg/dl Test 12/24/16 11:47 Bedside Glucose 157 mg/dl Imaging: EKG: Telemetry reviewed: Assessment & Plan 71yoM with PMHx of hypertension, hyperlipidemia, previous VT with CABG x 3 in 2012, hypothyroidism, CKD stage III, left knee osteoarthritis and multiple revisions, DM II, and mild sleep apnea who presented with chest pain yesterday ( 12/23) to the ED. Chest pain was not ischemic in nature based on history and given negative troponins x 3 (<0.015 x 3) despite the pain lasting for a few hours. ECHO was also completed and reassuring with mild diastolic dysfunction. Pain has resolved and patient is doing well. -Continue aspirin, carvedilol and Rosuvastatin as scheduled -From a cardiac standpoint, pt is clear for discharge with follow up on an outpatient basis Attending note: Patient had extended episode of chest discomfort that involved the precordium. It waxed and waned in severity but was clearly present for several hours. He reports this is being distinct from symptoms he experienced prior to his bypass surgery. While his activity has been limited recently by his left knee surgery , he has not had any exertional chest discomfort. Given the absence of an elevation in his cardiac biomarkers despite an extended period of symptoms I think this can be comfortably classified as noncardiac chest pain. He continues to have preserved LV systolic function. He is currently feeling well. I would not change his medical regimen nor advocate any outpatient stress testing based on the objective findings obtained during his hospitalization.
--- NOTE | 2016-12-24 16:13 | ECHOCARDIOGRAM REPORT ---
*NOTICE TO RECEIVING [employer] This information is strictly Confidential and protected under [place] law. [place] law prohibits you from making any further disclosure of this information unless further disclosure is expressly permitted by the written consent of the person to whom it pertains or is authorized by law. A general authorization for the release of medical or other information is not sufficient for this purpose. Hospital accepts no responsibility if the information is made available to any other person, INCLUDING THE PATIENT. Interpretation Summary * Name: KO TOSCANO Study Date: 12/24/2016 03:00 PM * HR: 57 * : 1945 (M/d/yyyy) Gender: Male Height: 72 in * Age: 71 yrs Ethnicity: [place] Weight: 216 lb * Referring Physician: Uyen Villegas PA-C * Performed By: Lina Canales RCS * * Reason For Study: Chest pain * BSA: 2.2 m2 * -- Conclusions -- * Left ventricular systolic function is normal. * Grade I diastolic dysfunction, (abnormal relaxation pattern). * The left atrium is mildly dilated. * Compared to study performed in June of 2014, there is no significant difference Procedure Details * Left Ventricle The left ventricle is normal in size. There is normal left ventricular wall thickness. Ejection Fraction = 65-70%. Left ventricular systolic function is normal. Grade I diastolic dysfunction, (abnormal relaxation pattern). The left ventricular wall motion is normal. * Right Ventricle The right ventricle is normal in size and function. * Atria The left atrium is mildly dilated. Right atrial size is normal. * Mitral Valve The mitral valve anatomy is normal. Significant mitral regurgitation is absent. * Tricuspid Valve The tricuspid valve anatomy is normal. Significant tricuspid regurgitation is absent. * Aortic Valve The aortic valve is normal in structure and function. The aortic valve is trileaflet. No hemodynamically significant valvular aortic stenosis. No aortic regurgitation is present. * Great Vessels The aortic root is normal size. * Pericardium/Pleural There is no pericardial effusion. * * MMode 2D Measurements and Calculations * IVSd 1.1 cm * * LVIDd 4.4 cm * LVIDs 2.6 cm * LVPWd 1.1 cm * * IVS/LVPW 1.0 * FS 40.5 % * EDV(Teich) 86.1 ml * ESV(Teich) 24.6 ml * EF(Teich) 71.4 % * * EDV(cubed) 83.2 ml * ESV(cubed) 17.6 ml * EF(cubed) 78.9 % * * LV mass(C)d 169.5 grams * LV mass(C)dI 77.0 grams/m\S\2 * * SV(Teich) 61.5 ml * SI(Teich) 27.9 ml/m\S\2 * SV(cubed) 65.7 ml * SI(cubed) 29.8 ml/m\S\2 * * Ao root diam 3.4 cm * Ao root area 9.2 cm\S\2 * * asc Aorta Diam 3.8 cm * * LVOT diam 2.0 cm * LVOT area 3.2 cm\S\2 * * LVAd ap4 35.2 cm\S\2 * LVLd ap4 8.6 cm * EDV(MOD-sp4) 122.0 ml * LVAs ap4 16.0 cm\S\2 * LVLs ap4 6.4 cm * ESV(MOD-sp4) 34.1 ml * EF(MOD-sp4) 72.0 % * * LVAd ap2 30.1 cm\S\2 * LVLd ap2 8.3 cm * EDV(MOD-sp2) 92.0 ml * LVAs ap2 13.6 cm\S\2 * LVLs ap2 5.9 cm * ESV(MOD-sp2) 27.3 ml * EF(MOD-sp2) 70.3 % * * SV(MOD-sp4) 87.9 ml * SI(MOD-sp4) 39.9 ml/m\S\2 * * SV(MOD-sp2) 64.7 ml * SI(MOD-sp2) 29.4 ml/m\S\2 * * * * * * Doppler Measurements and Calculations * MV E max kyler 51.4 cm/sec * MV A max kyler 70.8 cm/sec * * MV E/A 0.73 * * MV dec time 0.37 sec * * Ao V2 max 120.8 cm/sec * Ao max PG 5.8 mmHg * Ao max PG (full) 2.7 mmHg * LOUIE(V,A) 2.3 cm\S\2 * LOUIE(V,D) 2.3 cm\S\2 * * LV V1 max PG 3.2 mmHg * * LV V1 max 89.2 cm/sec * * * *
--- NOTE | 2016-12-24 19:01 | Discharge Instructions ---
Discharge Instructions Date of Service Dec 24, 2016. Admission Reason for Admission: Chest Pain Discharge Discharge Diagnosis / Problem: Chest pain-noncardiac Discharge Goals Goal(s): Improve disease control, Diagnostic testing, Therapeutic intervention Activity Recommendations Activity Limitations: resume your previous activity Exercise/Sports Limitations: gradually increase as tolerated Shower/Bathe: no limitations . Instructions / Follow-Up Instructions / Follow-Up You were admitted after having 8 hours of chest pain. Your blood tests and ECGs showed that you did NOT have a heart attack. Your chest xray was ok, and the ultrasound of your heart (ECHO) was fine. This may be due to either a GI- related issue or musculoskeletal. Please follow up with your PCP, [employer] within 1-2 weeks. Current Hospital Diet Patient's current hospital diet: AHA Diet (Heart Healthy), Diabetes Type 2 Diet Discharge Diet Recommended Diet: AHA Diet (Heart Healthy), Diabetes Type 2 Diet Procedures Procedures Performed: Echocardiogram Chest xray Pending Studies Studies pending at discharge: no Laboratory Results Hemoglobin A1c Test 12/24/16 05:52 Range/Units Estimated Average Glucose 163 mg/dl Hemoglobin A1c 7.3 H 4.5-5.6 % Medical Emergencies . Who to Call and When: Medical Emergencies: If at any time you feel your situation is an emergency, please call 911 immediately. . Non-Emergent Contact Non-Emergency issues call your: Primary Care Provider, [employer]ian Call Non-Emergent contact if: your pain is not controlled, your pain is worsening, your pain is unusual for you, your pain is concerning you, you have any medication questions . . "Provider Documentation" section prepared by Payton Denton. . VTE Core Measure Inpt VTE Proph given/why not?: Unfractionated heparin JOSHUA, T.EWm Stockings, SCD 's
--- NOTE | 2017-01-10 23:38 | Discharge Summary ---
Discharge Summary Date of Service Dec 24, 2016. Discharge Summary Admission Date: Dec 23, 2016 at 18:42 Discharge Date: Dec 24, 2016 Discharge Disposition: Home Principal Diagnosis: Chest pain-noncardiac Problems/Secondary Diagnoses: Hypertension Hyperlipidemia Chronic diastolic CHF CAD with previous MD, history of CABG x 3 in 2012 Hypothyroidism Acute renal insufficiency in setting of CKD stage III Left knee osteoarthritis and multiple revisions DM II Mild sleep apnea on CPAP DM II GERD Insomnia Immunizations: Have You Had Influenza Vaccine: Yes Influenza Vaccine Date: Jan 29, 2006 History of Tetanus Vaccine?: Yes History of Pneumococcal: Yes History of Hepatitis B Vaccine: Unknown Procedures: ECHO: * Left ventricular systolic function is normal. * Grade I diastolic dysfunction, (abnormal relaxation pattern). * The left atrium is mildly dilated. * Compared to study performed in June of 2014, there is no significant difference CHEST ONE VIEW PORTABLE CLINICAL HISTORY: Evaluate Fever/Sepsis fever. Sepsis. COMPARISON STUDY: 06/14/2014 FINDINGS: Prior median sternotomy. Diaphragms are smooth. Chronic atelectatic change left base. No focal infiltrate. IMPRESSION: Chronic change. No acute process. Consultations: Cardiology Medication Reconciliation Continued Medications: Aspirin (Aspirin Ec) 81 Mg Tab 81 MG PO QAM Carvedilol (Carvedilol) 25 Mg Tab 25 MG PO BID Citalopram (Citalopram Hydrobromide) 20 Mg Tab 20 MG PO QAM Glipizide (Glipizide ER) 10 Mg Tabcr 10 MG PO QAM TAKE 1 TABLET BY MOUTH DAILY 30 MINUTES BEFORE A MEAL Hydrochlorothiazide (Hydrochlorothiazide) 25 Mg Tab 25 MG PO QAM Insulin Lispro (Human) (Humalog Kwikpen) 100 Unit/Ml Inj 1 DOSE SC UD PRN for BSG Coverage COVERAGE DIRECTED BY SLIDING SCALE Levothyroxine Sodium (Synthroid) 50 Mcg Tab 50 MCG PO QAM Lisinopril (Zestril) 30 Mg Tab 30 MG PO QPM Metformin Hcl (Glucophage) 1,000 Mg Tab 1000 MG PO BID Nitroglycerin (Nitrostat) 0.4 Mg Tab 0.4 MG UT UD PRN for Chest Pain, BTL Pantoprazole (Pantoprazole Sodium) 40 Mg Tab 40 MG PO QAM Repaglinide (Prandin) 0.5 Mg Tab 0.5 MG PO AC TAKE ONE TABLET BY MOUTH 30 MINUTES BEFORE MEALS HOLD DOSE IF MEAL IS MISSED Rosuvastatin Calcium (Rosuvastatin Calcium) 10 Mg Tab 10 MG PO QPM Trazodone Hcl (Trazodone) 100 Mg Tab 100 MG PO HS Discharge Exam Doing very well. No further CP since last night before going to sleep. He reports pain was substernal, never radiated, was associated with some nausea, was achy in nature, waxed and waned but was constant the whole time. Denies any changes in bowel habits or diet, no OTC meds or NSAIDs, no melena, hematochezia or hematemesis. It was not positional or tender to palpation. It went away on its own. Review of Systems: Constitutional: No fever, No chills, No fatigue Eyes: No problem reported ENT: No problem reported Respiratory: + cough (chronic and mild, associated with post-nasal drip and hayfever), No shortness of breath Cardiovascular: No chest pain Abdomen: No pain, No nausea, No vomiting, No GI bleeding Musculoskeletal: + joint pain (left knee) Genitourinary - Male: No problem reported Neurologic: No problem reported Psychiatric: No problem reported Endocrine: No problem reported Hematologic / Lymphatic: No problem reported Integumentary: No problem reported Physical Exam: General Appearance: WD/WN, no apparent distress Eyes: normal inspection, sclerae normal ENT: hearing grossly normal Neck: trachea midline Respiratory/Chest: lungs clear, normal breath sounds, no respiratory distress, no accessory muscle use Cardiovascular: regular rate, rhythm, no edema, no gallop, no JVD, no murmur , normal peripheral pulses Abdomen / GI: normal bowel sounds, non tender, soft, no organomegaly, no pulsatile mass Extremities: normal inspection (except left knee with healed scar from incision/surgery), no calf tenderness, normal capillary refill, no pedal edema Neurologic/Psychiatric: no motor/sensory deficits, alert, normal mood/affect , oriented x 3 Skin: normal color, warm/dry, no rash Hospital Course This is a 71-year-old male with PMHx of hypertension, hyperlipidemia, previous MD, history of CABG x 3 in 2013, hypothyroidism, CKD stage III, left knee osteoarthritis and multiple revisions, DM II, and mild sleep apnea who presents with exertional chest pain which started at 11 AM and lasted over an hour, while he was working and walking up and down flights of stairs at [employer]. Chest pain CAD s/p CABG x 3 in 2013 - Admitted to telemetry for observation - troponins negative x 3 - EKG reviewed showing sinus bradycardia ECHO with no wall motion abnormalities and EF preserved CXR without mediastinal widening or any other acute concerns - Patient follows with Dr. Duran as an outpatient annually, will need follow-up arranged at time of discharge - Non-cardiac chest pain and safe to be discharged Hypertension -Continue carvedilol 25 BID, ASA 81 mg daily, hydrochlorothiazide 25 mg daily, -held lisinopril 30 mg daily with elevated Cr from baseline 1.4 in 2014 but 1.7 may be his more recent baseline, could be acute renal insufficiency -either way, ok to restart lisinopril on discharge -follow renal function as outpatient Hyperlipidemia -Continue rosuvastatin 10 mg daily CKD stage III - Creatinine elevated at 1.7 on admission and did not change on next day, baseline appears to be around 1.2-1.4 in 2014 - ok to restart lisinopril and metformin, avoid nephrotoxic agents for now - Encourage oral hydration DM II- hemoglobin A1c 7.3% here which is well controlled - continue metformin and glipizide - Continue repaglinide 0.5 mg with meals GERD - Continue pantoprazole 40 mg daily Insomnia -Continue trazodone 100 mg QHS. Patient has weaned himself down to 100 mg from 150. The patient was asked to follow up with his PCP regarding continuing to wean off this medication as tolerated Mild sleep apnea - Sleep study was completed on 07/15/16 - Patient was recently started on CPAP at home, reports he has worn it 2/3 of the time out of the last week and a half since seeing his PCP Mary Granda. He reports no difference in wearing it versus not wearing it at this point. Total Time Spent: Greater than 30 minutes This includes examination of the patient, discharge planning, medication reconciliation, and communication with other providers. Discharge Instructions Please refer to the electronic Patient Visit Report (Discharge Instructions) for additional information. Follow-Up PCP and Cardiology within 1-2 weeks Additional Copies To Zari Robertson
== END 2016-12-24 19:42 | disposition home or self-care (01) ==
LOC: C.EDB 14:52 → C.MED 18:42 → ENRESERV 19:36
PROVIDERS: ADMIT Hospitalist; ATTEND Family Medicine
DX: R07.89 Other chest pain (principal); M17.12 Unilateral primary osteoarthritis, left knee; E11.9 Type 2 diabetes mellitus without complications; E78.5 Hyperlipidemia, unspecified; E03.9 Hypothyroidism, unspecified; I25.2 Old myocardial infarction; N18.3 Chronic kidney disease, stage 3 (moderate); I12.9 Hypertensive chronic kidney disease with stage 1 through stage 4 chronic kidney disease, or unspecified chronic kidney disease; Z95.5 Presence of coronary angioplasty implant and graft; Z83.3 Family history of diabetes mellitus; Z79.82 Long term (current) use of aspirin; Z82.49 Family history of ischemic heart disease and other diseases of the circulatory system; Z79.84 Long term (current) use of oral hypoglycemic drugs; Z96.652 Presence of left artificial knee joint

== ENCOUNTER → 2017-02-25 | Outpatient (CLI) | payer MEDICARE ==
[~2017-02-25] VITALS: Ht 182.9 cm; Wt 99.2 kg
[~2017-02-25] MED LIST changes: +ASPI81TA28 PO; -CARV25TA2 PO; -CITA20TA9 PO; +CLX/20 PO; +CRG25 PO; -CRS10 PO; -DSY100 PO; +GLCSR10 PO; -GLIP-197 PO; -HYDR25TA4 PO; +HYDR25TA5 PO; +INSU100I2 SC; -LEVO50TA60 PO; +LSNP/30 PO; -METF-382 PO; +METF-384 PO; +NTRGSL/4 UT; +PANT40TA2 PO; -PRT40 PO; +REPA1TAB5 PO; +ROSU10TA24 PO; +SYN50 PO; +TRAZ100T29 PO
[2017-02-25 13:44] VITALS: BP 150/75; PULSE 56; Ht 182.9 cm; Wt 99.2 kg
== END | disposition home or self-care (01) ==
LOC: C.NEUR 13:31
PROVIDERS: ATTEND Internal Medicine Pulmonary Disease
DX: G47.30 Sleep apnea, unspecified (principal); I25.10 Atherosclerotic heart disease of native coronary artery without angina pectoris

== ENCOUNTER → 2017-06-10 | Outpatient (CLI) | payer MEDICARE ==
[~2017-06-10] MED LIST changes: -ROSU10TA24 PO; +ROSU10TA35 PO
--- NOTE | 2017-06-10 10:21 | DIAGNOSTIC IMAGING REPORT ---
L KNEE 1 OR 2 VIEWS ROUTINE CLINICAL HISTORY: M25.562, R50.9, Z96.652, M25.669 COMPARISON: 01/02/2016 DISCUSSION: Evidence for a total left knee revision compared to the prior study. Good contact between the additional cement material and underlying bone. No acute bony abnormalities appreciated. No evidence for bony destructive process. There is no evidence for soft tissue swelling. IMPRESSION: No acute process status post total left knee revision The above report was generated using voice recognition software. It may contain grammatical, syntax or spelling errors. Electronically signed by: Zhagn Minaya M.D. 06/10/2017 10:20 AM Dictated Date/Time: 06/10/2017 10:18 AM
== END | disposition home or self-care (01) ==
LOC: C.RAD1850 10:07
PROVIDERS: ATTEND Nurse Practitioner Family
DX: M25.562 Pain in left knee (principal); R50.9 Fever, unspecified; Z96.652 Presence of left artificial knee joint; M25.669 Stiffness of unspecified knee, not elsewhere classified

== ENCOUNTER → 2017-06-29 | Outpatient (CLI) | payer MEDICARE | END | disposition home or self-care (01) | LOC: C.LABPBG 09:57 | PROVIDERS: ATTEND Internal Medicine Cardiovascular Disease | DX: E78.5 Hyperlipidemia, unspecified (principal) ==

== ENCOUNTER 2018-09-24 20:40 | Inpatient (IN) ==
--- OUTSIDE RECORDS SUMMARY | 2018-09-24 20:43 | External Medical Summary | Continuity of Care Document ---
:1945 Author Name Madhavi Florian, Provider Address Unavailable Unavailable , Care Team Providers Name Role Phone Renee Florian, Chapincito Khan Unavailable [email or web address] Diabetes mellitus, type 2 (250.00) (E11.9) Chronic renal insufficiency (585.9) (N18.9) Hypothyroidism (244.9) (E03.9) Depression (311) (F32.9) Chest pain (786.50) (R07.9) Apnea, sleep (780.57) (G47.30) Dyspnea on exertion (786.09) (R06.09) Hyperlipidemia (272.4) (E78.5) Hypertension (401.9) (I10) CAD (coronary artery disease) (414.00) (I25.10) Allergies and Adverse Reactions Morphine Derivatives (Allergy) Medications Carvedilol 12.5 MG Oral Tablet; TAKE ONE TABLET BY MOUTH TWI CE DAILY Quantity: 180 Refills: 0 Aspirin 81 MG TABS; TAKE 1 TABLET DAILY. Quantity: 90 Refills: 3 CeleXA 20 MG Oral Tablet; TAKE 1 TABLET DAILY. Refills: 0 hydroCHLOROthiazide 25 MG Oral Tablet; TAKE 1 TABLET DAILY. Quantity: 30 Refills: 11 Levothyroxine Sodium 50 MCG Oral Tablet; Take 1 tablet by [facility] daily. Refills: 0 Lisinopril 20 MG Oral Tablet Refills: 0 Nitroglycerin 0.4 MG Sublingual Tablet S ublingual; PLACE 1 TABLET UNDER THE TONGUE EVERY 5 MINUTES FOR UP TO 3 DOSES NEEDED FOR CHEST PAIN.CALL 911 IF PAIN PERSISTS. Refills: 0 Pantoprazole Sodium 40 MG Oral Tablet De layed Release; take 1 tablet by mouth once daily Refills: 0 Crestor 10 MG Oral Tablet; TAKE 1 TABLET BY MOUTH AT BEDTIME Quantity: 30 Refills: 5 traZODone HCl - 100 MG Oral Tablet; TAKE 1 TABLET AT BEDTIME . Refills: 0 glipiZIDE TABS; TAKE 1 TABLET DAILY. Refills: 0 metFORMIN HCl - 1000 MG Oral Tablet; TAKE 1 TABLET TWICE ABILIO LY. Quantity: 180 Refills: 3 Vitamin B-12 5000 MCG Sublingual Tablet Sublingual; PLACE 1 TABLET Daily Refills: 0 glyBURIDE TABS; TAKE 1 TABLET DAILY. Refills: 0 Procedures History of Knee Surgery Status: Complete d History of Tonsillectomy Status: Complet ed History of CABG Status: Completed Immunizations Immunizations not documented Family History Unknown Family Member Family history of cardiac disorder (V17.49) Status: Active Comments: Family History (Z82.49) Father No pertinent family history (V49.89) (Z78.9) Status: Active Social History - Smoking Status Never smoker Plan of Treatment Planned Encounters Appointment; Chapincito uDran M.D. Start: 04-Jan-2019 11:30 R equest Planned Observations Planned Goals not documented Results No Known Results Results not documented Encounters Appointment; Chapincito Duran M.D. 06-Jul-2018 11:30 Encounter Diagnosis: Problem not documented Appointment; Laurie Durant PA-C 26-Jan-2018 10:30 Encounter Diagnosis: Problem not documented Appointment; Stress, Echocardiogram 1 26-Jan-2018 9:30 Encounter Diagnosis: Problem not documented Appointment; Chapincito Duran M.D. 05-Jan-2018 10:15 Encounter Diagnosis: Problem not documented Appointment; Chapincito Duran M.D. 30-Jun-2017 10:30 Encounter Diagnosis: Problem not documented Appointment; Delfino Patten M.D. 25-Feb-2017 13:45 Encounter Diagnosis: Problem not documented Appointment; Chapincito Duran M.D. 03-Jan-2017 13:30 Encounter Diagnosis: Problem not documented Appointment; Mary Granda PA-C 30-Nov-2016 14:30 Encounter Diagnosis: Problem not documented Appointment; Chapincito Duran M.D. 04-Jan-2019 11:30 Encounter Diagnosis: Problem not documented
[2018-09-24] MEDS ORDERED: DIAZEPAM 5 MG/ML INJ 10ML VIAL IV STA ×2 (21:02→22:39)
[2018-09-24] MEDS ORDERED: SODIUM CHLORIDE 0.9% 1000ML 1,000 ML IV ONE (21:02)
[2018-09-24] MEDS ORDERED: MECLIZINE HCL 25 MG TAB PO STA (21:02)
[2018-09-24 21:26] LABS: Basophils # (auto) 0.04 K/uL (0-0.2); Basophils % (auto) 0.6 %; Eosinophils % (auto) 4.8 %; Hematocrit (blood only) 41.1 % (42-52); Hemoglobin 13.9 g/dL (14.0-18.0); Immature Granulocytes # (auto) 0.01 K/uL (0.00-0.02); Immature Granulocytes % (auto) 0.2 %; Lymphocytes # (auto) 1.96 K/uL (1.2-3.4); Lymphocytes % (auto) 31.7 %; Mean Corpuscular Hgb Conc 33.8 g/dL (32-36); Mean Corpuscular Volume 89.9 fL (80-100); Mean Platelet Volume 10.6 fL (7.4-10.4); Monocytes # (auto) 0.66 K/uL (0.11-0.59); Monocytes % (auto) 10.7 %; Neutrophils # (auto) 3.22 K/uL (1.4-6.5); Platelet Count 206 K/uL (130-400); RDW Coefficient of Variation 14.1 % (11.5-14.5); RDW Standard Deviation 46.7 fL (36.4-46.3); Red Blood Count 4.57 M/uL (4.7-6.1); White Blood Count 6.19 K/uL (4.8-10.8)
[2018-09-24 21:46] LABS: Alanine Aminotransferase 16 U/L (12-78); Albumin Level 3.6 gm/dl (3.4-5.0); Aspartate Aminotransferase 13 U/L (15-37); BUN Creatinine Ratio 10.6 (10-20); Blood Urea Nitrogen 16 mg/dl (7-18); Carbon Dioxide 29 mmol/L (21-32); Chloride 101 mmol/L (98-107); Creatinine Clr Calc Pharmacy 53.6 ml/min; Est GFR (African American) 51.8; Est GFR (Non-African American) 44.7; Glucose 187 mg/dl (70-99); Potassium 3.8 mmol/L (3.5-5.1); Sodium 139 mmol/L (136-145)
[2018-09-24 21:51] LABS: Albumin Globulin Ratio 0.9 (0.9-2); Alkaline Phosphatase 74 U/L (45-117); Bilirubin,Total 0.4 mg/dl (0.2-1); Globulin 3.9 gm/dl (2.5-4.0); Total Protein 7.5 gm/dl (6.4-8.2); Troponin I < 0.015 ng/ml (0-0.045)
--- NOTE | 2018-09-24 21:59 | CT Scan Report ---
CT OF THE HEAD WITHOUT CONTRAST CLINICAL HISTORY: dizzy COMPARISON STUDY: No previous studies for comparison. CT DOSE: 712.55 mGy.cm TECHNIQUE: Helical axial images of the head were obtained without IV contrast. Automated exposure con trol was utilized for the study. A dose lowering technique was utilized adhering to the principles o f ALARA. FINDINGS: No acute intracranial hemorrhage, midline shift or mass effect is present. The ventricular system is normal. The basilar cisterns are patent. There are no extra axial collections. There are no findings to suggest acute dural sinus thrombosis or acute territorial infarct. White matter hypodens ities suggest small vessel disease. There are no significant calvarial abnormalities. IMPRESSION: No acute intracranial findings. Electronically signed by: Bill mR M.D. 09/24/2018 9:58 PM
--- NOTE | 2018-09-25 00:36 | Emergency Department Note ---
Entered by Fabby Brown acting as a scribe for Gustavo Vicente DO History of Present Illness General Chief complaint: Nausea Stated complaint: NAUSEA, BALANCE ISSUES Source: patient History of Present Illness Provider complaint: nausea Onset (ago): hour(s) (several hours ago) Location: head Pain Consistency: + other (persistent) Relieved By: + none Exacerbated By: + movement Associated symptoms: + nausea/vomiting (-vomting, +lightheadedness, -change in vision, -numbness/weakness in legs) The patient is a 72 year old male who presents to the Emergency Room with complaints of persistent nausea. The patient states that he has been having balancing issues that started several hours ago. He states that when he makes quick movements he cannot get re-centered. No other exacerbating or remitting factors. The patient denies any dizziness, headache, change in vision, numbness or weakness in his legs, vertigo, or vomiting. The patient states that he has had lightheadedness that started yesterday. Patient denies any chest pain or shortness of breath. Patient does have a history of a previous cardiac cath and CABG. The symptoms do not feel similar. No ringing in the ears. Home Medications Home Medications Medication Instructions Recorded Confirmed Type aspirin 81 mg PO QAM 03/29/18 09/24/18 History carvedilol 12.5 mg PO BID 03/29/18 09/24/18 History citalopram [Celexa] 20 mg PO QAM 03/29/18 09/24/18 History glipizide 10 mg PO QAM 03/29/18 09/24/18 History hydrochlorothiazide 25 mg PO QAM 03/29/18 09/24/18 History levothyroxine 50 mcg PO QAM 03/29/18 09/24/18 History lisinopril 20 mg PO QPM 03/29/18 09/24/18 History metformin 1,000 mg PO BIDM 03/29/18 09/24/18 History nitroglycerin 1 dose SUBLINGUAL UD PRN 03/29/18 09/24/18 History pantoprazole 40 mg PO QAM 03/29/18 09/24/18 History repaglinide [Prandin] 0.5 mg PO AC 03/29/18 09/24/18 History rosuvastatin [Crestor] 10 mg PO HS 03/29/18 09/24/18 History trazodone 100 mg PO HS 03/29/18 09/24/18 History Allergies Allergy/AdvReac Type Severity Reaction Status Date / Time morphine Allergy Intermediate Itchy Verified 09/24/18 21:21 Past Med/Surg History Medical History Chronic back pain Depression Diabetes mellitus, type 2 GERD (gastroesophageal reflux disease) History of angina History of colon polyps Hyperlipidemia Hypertension Hypothyroidism Kidney stones Surgical History [place] 07[place]2002[place] [facility] [place] of [place] History of coronary artery bypass graft 2002[place] [facility] [place]. Duran History of heart artery [place] [facility] [place] History of revision of total replacement of left knee joint x2 History of tonsillectomy and adenoidectomy History of tooth extraction History of total left knee replacement (TKR) Hx of arthroscopy of left knee x2 Social History Preferred Language: Nepali Communication Ability: Effective Beliefs That Will Affect Care: None Current Living Situation: Spouse Feels Safe at Home: Yes Smoking Status: Never smoker Second Hand Exposure: Yes (parents smoked) Hx Alcohol Use: No Hx Substance Use: No Review of Systems See HPI for pertinent positives & negatives. and A total of 10 systems reviewed and were otherwise negative Physical Exam Vital Signs Vital Signs - 24 hr 09/24/18 20:45 09/24/18 21:02 09/24/18 22:51 Temperature 36.5 C Temperature Source Oral Sepsis Recent Fever Within 48 Hours No Sepsis New/Unexplained Change in Mental Status No Sepsis Action Taken by Nursing No Action Required Pulse Rate 57 L Pulse Rate [Finger] 50 L Respiratory Rate 17 18 Respiratory Effort / Characteristics Non-Labored Spontaneous Respiratory Depth Normal Respiratory Pattern Regular Blood Pressure 177/87 H Blood Pressure [Left Arm] 164/74 H Blood Pressure Mean 117 Blood Pressure Mean [Left Arm] 104 Blood Pressure Position Sitting Pulse Oximetry 94 95 Oxygen Delivery Method Room Air Room Air Room Air GENERAL: alert, sitting up in bed, well appearing, well nourished, no distress, non-toxic EYE EXAM: normal conjunctiva, PERRL and EOM's grossly intact OROPHARYNX: no exudate, no erythema, lips, buccal mucosa, and tongue normal and mucous membranes are moist EARS: TMs clear bilaterally NECK: supple, no nuchal rigidity, no adenopathy, non-tender LUNGS: Clear to auscultation. Normal chest wall mechanics HEART: no murmurs, S1 normal and S2 normal ABDOMEN: abdomen soft, non-tender, normo-active bowel sounds, no masses, no rebound or guarding. BACK: Back is symmetrical on inspection and there is no deformity, no midline tenderness, no CVA tenderness. SKIN: no rashes and no bruising UPPER EXTREMITIES: upper extremities are grossly normal. LOWER EXTREMITIES: No pitting edema. NEURO EXAM: Normal sensorium, cranial nerves II-XII intact, normal speech, no weakness of arms, no weakness of legs. No drift. Finger to nose intact. Gross sensation intact. Course 2052: The patient was evaluated in room C10, and a complete history and physical examination were performed. 0020: I reviewed the patient's case with Dr. Mathew [facility] Hospitalist. He will evaluate the patient for further management. Consultations Consultation #1: Dr. Mathew [facility] Hospitalist Time: 00:20 Administered Medications Discontinued Medications Diazepam (Valium) 2 mg IV NOW STA Stop: 09/24/18 21:03 Last Admin: 09/24/18 21:39 Dose: 2 mg Documented by: [id number] Diazepam (Valium) 2 mg IV NOW STA Stop: 09/24/18 22:40 Last Admin: 09/24/18 22:56 Dose: 2 mg Documented by: [id number] Sodium Chloride (Nss 1000ml) 1,000 mls @ 999 mls/hr IV .Q1H1M ONE Stop: 09/24/18 22:02 Last Infusion: 09/24/18 23:01 Dose: 0 mls/hr Documented by: [id number] Admin: 09/24/18 21:39 Dose: 999 mls/hr Documented by: [id number] Meclizine HCl (Antivert) 25 mg PO NOW STA Stop: 09/24/18 21:03 Last Admin: 09/24/18 21:39 Dose: 25 mg Documented by: [id number] Medical Decision Making Differential Diagnosis Differential diagnosis: Etiologies such as benign positional vertigo, dehydra tion, hypovolemia, anemia, tumor, infection, hypoglycemia, electrolyte abnormalities, cardiac sources, intracerebral event, toxicologic, neurologic, as well as others were entertained. Medical Records Attestation: I reviewed the patient's medical records. Home Medications Current Medication List: was personally reviewed by me Laboratory Data Attestation: I reviewed the patient's lab results. Result diagrams: 09/24/18 21:12 09/24/18 21:12 Lab Results 09/24/18 09/24/18 Range/Units 21:12 21:12 WBC 6.19 (4.8-10.8) K/uL RBC 4.57 L (4.7-6.1) M/uL Hgb 13.9 L (14.0-18.0) g/dL Hct 41.1 L (42-52) % MCV 89.9 (80-100) fL MCH 30.4 (25-34) pg MCHC 33.8 (32-36) g/dL RDW Std Deviation 46.7 H (36.4-46.3) fL RDW Coeff of Kasey 14.1 (11.5-14.5) % Plt Count 206 (130-400) K/uL MPV 10.6 H (7.4-10.4) fL Immature Gran % (Auto) 0.2 % Neut % (Auto) 52.0 % Lymph % (Auto) 31.7 % [place] % (Auto) 10.7 % Eos % (Auto) 4.8 % Baso % (Auto) 0.6 % Immature Gran # (Auto) 0.01 (0.00-0.02) K/uL Neut # (Auto) 3.22 (1.4-6.5) K/uL Lymph # (Auto) 1.96 (1.2-3.4) K/uL [place] # (Auto) 0.66 H (0.11-0.59) K/uL Eos # (Auto) 0.30 (0-0.5) K/uL Baso # (Auto) 0.04 (0-0.2) K/uL Sodium 139 (136-145) mmol/L Potassium 3.8 (3.5-5.1) mmol/L Chloride 101 (98-107) mmol/L Carbon Dioxide 29 (21-32) mmol/L Anion Gap 8.0 (3-11) BUN 16 (7-18) mg/dl Creatinine 1.54 H (0.6-1.4) mg/dl Est Cr Clr Drug Dosing 53.6 ml/min Est GFR ( Amer) 51.8 Est GFR (Non-Af Amer) 44.7 BUN/Creatinine Ratio 10.6 (10-20) Glucose 187 H (70-99) mg/dl Calcium 9.0 (8.5-10.1) mg/dl Total Bilirubin 0.4 (0.2-1) mg/dl AST 13 L (15-37) U/L ALT 16 (12-78) U/L Alkaline Phosphatase 74 (45-117) U/L Troponin I < 0.015 (0-0.045) ng/ml Total Protein 7.5 (6.4-8.2) gm/dl Albumin 3.6 (3.4-5.0) gm/dl Globulin 3.9 (2.5-4.0) gm/dl Albumin/Globulin Ratio 0.9 (0.9-2) Lipase 172 (73-393) U/L Imaging Data Radiologist's Impression: Radiology results as stated below per my review and the radiologist's interpretation: CT OF THE HEAD WITHOUT CONTRAST CLINICAL HISTORY: dizzy COMPARISON STUDY: No previous studies for comparison. CT DOSE: 712.55 mGy.cm TECHNIQUE: Helical axial images of the head were obtained without IV contrast. Automated exposure control was utilized for the study. A dose lowering tech nique was utilized adhering to the principles of ALARA. FINDINGS: No acute intracranial hemorrhage, midline shift or mass effect is present. The ventricular system is normal. The basilar cisterns are patent. There are no extra axial collections. There are no findings to suggest acute dural sinus thrombosis or acute territorial infarct. White matter hypodensities suggest small vessel disease. There are no significant calvarial abnormalities. IMPRESSION: No acute intracranial findings. Electronically signed by: Bill Rm M.D. 09/24/2018 9:58 PM ECG Data Attestation: I personally reviewed and interpreted this ECG as follows: Indication: nausea Rate (beats per minute): 54 Rhythm: sinus bradycardia Findings: + other (normal axis) and + T-wave inversion (septal leads); no PVC Comparison ECG Date: from (12/23/16) Change: the following changes noted (worsening T-wave inversion and ST wave changes in septal leads) Blood Pressure Blood Pressure Findings: Elevated blood pressure Blood Pressure Disposition: elevated BP felt to be situational MDM Narrative Patient is a 72-year-old male who presents the ER for unsteadiness with movement. He denies any dizziness or lightheadedness. He has no other complaints. He is neurologically intact. Labs show no significant leukocytosis or anemia. BMP with a creatinine 1.54. LFTs troponin and lipase is unremarkable. EKG was remarkable for sinus bradycardia with a heart rate in the 45. Did have T WI along with ST wave changes in the septal leads along with T wave flattening in the high lateral leads comparison to his old EKG. Do not feel that this is likely to be cardiac although it could be regulated. Do favor benign positional vertigo. CT head was negative. Did order MRI. Due to the EKG changes and the unsteady gait/dizziness lightheadedness did discuss with the hospitalist for possible observation. Patient and family were updated bedside. He was given IV fluids and 2 dose of Valium along with Antivert and feels may be slightly better. Impression & Plan Dizziness, Acute electrocardiogram changes Discharge Plan Visit Data Chief Complaint: Nausea Stated Complaint: NAUSEA, BALANCE ISSUES ED Provider: Gustavo Vicente Discharge Problem: Dizziness, Acute electrocardiogram changes Patient Disposition: Being Evaluated by Hospitalist Prescriptions Prescriptions: No Action carvedilol 12.5 mg Tablet 12.5 mg PO BID RF: 0 lisinopril 20 mg Tablet 20 mg PO QPM RF: 0 glipizide 10 mg Tablet 10 mg PO QAM RF: 0 aspirin 81 mg Tablet,Delayed Release (Dr/Ec) 81 mg PO QAM RF: 0 citalopram [Celexa] 20 mg Tablet 20 mg PO QAM RF: 0 trazodone 100 mg Tablet 100 mg PO HS RF: 0 pantoprazole 40 mg Tablet,Delayed Release (Dr/Ec) 40 mg PO QAM RF: 0 metformin 1,000 mg Tablet 1,000 mg PO BIDM RF: 0 nitroglycerin 0.4 mg Tablet, Sublingual 1 dose Sublingual UD PRN (Reason: Angina) RF: 0 hydrochlorothiazide 25 mg Tablet 25 mg PO QAM RF: 0 repaglinide [Prandin] 1 mg Tablet 0.5 mg PO AC RF: 0 rosuvastatin [Crestor] 10 mg Tablet 10 mg PO HS RF: 0 levothyroxine 50 mcg Capsule 50 mcg PO QAM RF: 0 Referrals Referrals: Zari Robertson CRNP [Primary Care Provider] - The scribe's documentation has been prepared under my direction and personally reviewed by me in its entirety. I confirm that the note above accurately reflects all work, treatment, procedures, and medical decision making performed by me.
[2018-09-25] MEDS ORDERED: DEXTROSE 50% 50 ML SYRINGE IV PRN (02:36)
[2018-09-25] MEDS ORDERED: NITROGLYCERIN SL 0.4 MG/TAB TAB SL PRN (02:36)
[2018-09-25] MEDS ORDERED: GLUCOSE 40% GEL 15 GM TUBE PO PRN (02:36)
[2018-09-25] MEDS ORDERED: ACETAMINOPHEN 325 MG TAB PO PRN (02:36)
[2018-09-25] MEDS ORDERED: POLYETHYLENE (MIRALAX) 17 GM PACK PO PRN (02:36)
[2018-09-25] MEDS ORDERED: GLUCOSE 10 TABS/TUBE PO PRN (02:36)
[2018-09-25] MEDS ORDERED: GLUCAGON FOR INJ 1 MG VIAL SQ PRN (02:36)
[2018-09-25] MEDS ORDERED: ALUMINUM/MAGNESIUM SUSP 30 ML UDC PO PRN (02:36)
[2018-09-25] MEDS ORDERED: ONDANSETRON INJ 2 MG/ML 2 ML VIAL IV PRN (02:36)
[2018-09-25] MEDS ORDERED: MECLIZINE HCL 25 MG TAB PO PRN (02:36)
[2018-09-25] MEDS ORDERED: MAGNESIUM HYDROXIDE SUSP 30 ML UDC PO PRN (02:36)
[2018-09-25] MEDS ORDERED: CARBOHYDRATES FOR HYPOGLYCEMIA PO PRN (02:36)
[2018-09-25] MEDS ORDERED: ACETAMINOPHEN 1000 MG/100 ML IV IV PRN (02:36)
--- NOTE | 2018-09-25 02:50 | History & Physical Report ---
Date of Service September 25, 2018 Assessment & Plan (1) Dizziness: Symptoms are suggestive of vertigo, with physical examination noting serous effusion with right tympanic membrane. CT of head is negative. MRI of brain was ordered by ED. Present on Admission?: Yes (2) Abnormal EKG: Abnormal EKG/hypertension/angina/bradycardia- EKG today compared to previous shows new T wave inversions in the anterior chest leads V1 through V3. It is possible that his bradycardia may be contributing to his dizziness symptoms. Troponin is negative. The patient will be admitted to telemetry for serial cardiac enzymes, serial EKG's, cardiac rhythm monitoring and a 2-D echocardiogram with Dopplers. Continue aspirin 81 mg daily. Change carvedilol from 12.5 mg p.o. twice daily 6.25 mg p.o. twice daily with hold parameters. Continue nitroglycerin sublingual as PRN. Hold HCTZ. Present on Admission?: Yes (3) Bradycardia with 41-50 beats per minute: Holding carvedilol tonight. Decrease carvedilol from 12.5 mg p.o. twice daily to 625 mg p.o. twice daily as noted. Present on Admission?: Yes (4) Angina of effort: As above. Present on Admission?: Yes (5) Hypertension: See above. Present on Admission?: Yes (6) Diabetes mellitus: Hold metformin and repaglinide. Decrease glipizide from 10 mg every morning to 5 mg every morning. Placed on Accu-Cheks before meals and at bedtime with NovoLog coverage per scale. Present on Admission?: Yes (7) Hyperlipidemia: Continue rosuvastatin 10 mg p.o. bedtime. Check a fasting lipid panel. Present on Admission?: Yes (8) GERD (gastroesophageal reflux disease): Continue pantoprazole 40 mg every morning. Present on Admission?: Yes (9) Depression: Depression/insomnia- Continue Celexa 20 mg every morning and trazodone 100 mg at bedtime Present on Admission?: Yes (10) Insomnia: As above Present on Admission?: Yes (11) Hypothyroidism (acquired): Continue levothyroxine 50 mcg every morning Present on Admission?: Yes (12) Chronic kidney disease (CKD): Creatinine is at his baseline. Present on Admission?: Yes History of Present Illness Chief Complaint: The patient presents to the emergency department with dizziness with movement accompanied by nausea without vomiting, that began abruptly in the afternoon. He denies any other accompanying neurologic symptoms. He reports he is never had this type of symptoms in the past. He does state that the symptoms are completely gone while he is motionless. Primary Care Provider: ANTHONY Marshall The patient is a 72-year-old male with a past medical history including hypertension, depression, diabetes mellitus, hypothyroidism, GERD, hyperlipidemia and insomnia, who presents to the emergency department with acute onset of vertiginous type symptoms that are positional, worsened by movement in any direction, and resolved quickly at rest. Allergies Allergy/AdvReac Type Severity Reaction Status Date / Time morphine Allergy Intermediate Itchy Verified 09/24/18 21:21 Home Medications Home Medications Medication Instructions Recorded Confirmed Type aspirin 81 mg PO QAM 03/29/18 09/24/18 History carvedilol 12.5 mg PO BID 03/29/18 09/24/18 History citalopram [Celexa] 20 mg PO QAM 03/29/18 09/24/18 History glipizide 10 mg PO QAM 03/29/18 09/24/18 History hydrochlorothiazide 25 mg PO QAM 03/29/18 09/24/18 History levothyroxine 50 mcg PO QAM 03/29/18 09/24/18 History lisinopril 20 mg PO QPM 03/29/18 09/24/18 History metformin 1,000 mg PO BIDM 03/29/18 09/24/18 History nitroglycerin 1 dose SUBLINGUAL UD PRN 03/29/18 09/24/18 History pantoprazole 40 mg PO QAM 03/29/18 09/24/18 History repaglinide [Prandin] 0.5 mg PO AC 03/29/18 09/24/18 History rosuvastatin [Crestor] 10 mg PO HS 03/29/18 09/24/18 History trazodone 100 mg PO HS 03/29/18 09/24/18 History Past Med/Surg History Medical History Chronic back pain Depression Diabetes mellitus, type 2 GERD (gastroesophageal reflux disease) History of angina History of colon polyps Hyperlipidemia Hypertension Hypothyroidism Kidney stones Surgical History History of cardiac cath 07[place]2002, [place] [facility] [place] of colonoscopy History of coronary artery bypass graft 2002--triple [place] [facility] [place]. Duran History of heart artery stent 07[place]2002 [place] [facility] [place] History of revision of total replacement of left knee joint x2 History of tonsillectomy and adenoidectomy History of tooth extraction History of total left knee replacement (TKR) Hx of arthroscopy of left knee x2 Social History Preferred Language: Malay Communication Ability: Effective Sports Information Director Required: No Beliefs That Will Affect Care: None Current Living Situation: Spouse Feels Safe at Home: Yes Safety Concerns: Feels Safe At This Time Smoking Status: Never smoker Second Hand Exposure: Yes (parents smoked) Hx Alcohol Use: No Hx Substance Use: No Review of Systems Review of Systems: The patient denies chest pain, palpitations, shortness of breath, dyspnea on exertion, cough, lower extremity swelling, sore throat, fevers, chills, sweats, vomiting, diarrhea , constipation, abdominal pain, pelvic pain, blood in urine or stool, dysuria, urinary frequency or urgency, headache, memory loss, loss of consciousness, rash, abnormal bruising or bleeding, focal or generalized weakness, numbness or tingling in arms or legs, generalized arthralgias or myalgias, back or neck pain, or night sweats. The review of systems is otherwise negative other than for that already noted above, and at least 10 systems have been reviewed. Physical Exam Physical Exam: The patient is awake, alert and oriented 3, well developed and well nourished, normocephalic and atraumatic, lying in bed and in no acute distress. HEENT--PERRL, EOMI, mucous membranes and oropharynx normal. Serous effusion right tympanic membrane without erythema. Neck--supple. No JVD. No bruits. Thyroid normal, trachea midline, no adenopathy. Heart--normal S1 and S2. No murmurs, rubs or gallops. Lungs--clear bilaterally, no respiratory distress, no accessory muscle use. Abdomen--normal bowel sounds and soft. Nontender. Nondistended. Extremities--no cyanosis or clubbing. No edema. There are good distal pulses b/l. Dermatologic--normal skin turgor, normal color, no abnormal lymph nodes, no rash. Neurologic--cranial nerves II through XII grossly intact. Rheumatologic--normal range of motion. Psychiatric--normal affect. Results & Data Vital Signs (Past 12 Hours) Vital Signs Temp Pulse Pulse Resp BP BP Pulse Ox 09/25/18 00:37 50 L 18 144/68 H 95 09/24/18 22:51 50 L 18 164/74 H 95 09/24/18 20:45 97.7 F 57 L 17 177/87 H 94 Laboratory Results Laboratory Results WBC 8.15 K/uL (4.8-10.8) 09/25/18 02:49 RBC 4.32 M/uL (4.7-6.1) L 09/25/18 02:49 Hgb 13.3 g/dL (14.0-18.0) L 09/25/18 02:49 Hct 39.1 % (42-52) L 09/25/18 02:49 MCV 90.5 fL (80-100) 09/25/18 02:49 MCH 30.8 pg (25-34) 09/25/18 02:49 MCHC 34.0 g/dL (32-36) 09/25/18 02:49 RDW Std Deviation 47.7 fL (36.4-46.3) H 09/25/18 02:49 RDW Coeff of Kasey 14.3 % (11.5-14.5) 09/25/18 02:49 Plt Count 193 K/uL (130-400) 09/25/18 02:49 MPV 10.1 fL (7.4-10.4) 09/25/18 02:49 Immature Gran % (Auto) 0.0 % 09/25/18 02:49 Neut % (Auto) 67.5 % 09/25/18 02:49 Lymph % (Auto) 21.0 % 09/25/18 02:49 [place] % (Auto) 9.4 % 09/25/18 02:49 Eos % (Auto) 1.7 % 09/25/18 02:49 Baso % (Auto) 0.4 % 09/25/18 02:49 Immature Gran # (Auto) 0.00 K/uL (0.00-0.02) 09/25/18 02:49 Neut # (Auto) 5.50 K/uL (1.4-6.5) 09/25/18 02:49 Lymph # (Auto) 1.71 K/uL (1.2-3.4) 09/25/18 02:49 [place] # (Auto) 0.77 K/uL (0.11-0.59) H 09/25/18 02:49 Eos # (Auto) 0.14 K/uL (0-0.5) 09/25/18 02:49 Baso # (Auto) 0.03 K/uL (0-0.2) 09/25/18 02:49 PT 11.1 Seconds (9.0-12.0) 09/25/18 02:49 INR 1.1 (0.9-1.1) 09/25/18 02:49 APTT 25.8 Seconds (21.0-31.0) 09/25/18 02:49 PTT Ratio 1.0 09/25/18 02:49 Sodium 137 mmol/L (136-145) 09/25/18 02:49 Potassium 4.1 mmol/L (3.5-5.1) 09/25/18 02:49 Chloride 102 mmol/L (98-107) 09/25/18 02:49 Carbon Dioxide 30 mmol/L (21-32) 09/25/18 02:49 Anion Gap 5.0 (3-11) 09/25/18 02:49 BUN 17 mg/dl (7-18) 09/25/18 02:49 Creatinine 1.50 mg/dl (0.6-1.4) H 09/25/18 02:49 Est Cr Clr Drug Dosing 54.1 ml/min 09/25/18 02:49 Est GFR ( Amer) 53.5 09/25/18 02:49 Est GFR (Non-Af Amer) 46.2 09/25/18 02:49 BUN/Creatinine Ratio 11.0 (10-20) 09/25/18 02:49 Glucose 266 mg/dl (70-99) H 09/25/18 02:49 Calcium 8.5 mg/dl (8.5-10.1) 09/25/18 02:49 Total Bilirubin 0.4 mg/dl (0.2-1) 09/25/18 02:49 AST 12 U/L (15-37) L 09/25/18 02:49 ALT 14 U/L (12-78) 09/25/18 02:49 Alkaline Phosphatase 71 U/L (45-117) 09/25/18 02:49 Troponin I < 0.015 ng/ml (0-0.045) 09/25/18 02:49 Total Protein 7.0 gm/dl (6.4-8.2) 09/25/18 02:49 Albumin 3.2 gm/dl (3.4-5.0) L 09/25/18 02:49 Globulin 3.8 gm/dl (2.5-4.0) 09/25/18 02:49 Albumin/Globulin Ratio 0.8 (0.9-2) L 09/25/18 02:49 Lipase 172 U/L (73-393) 09/24/18 21:12 Diagnostic Findings [place], [place] [phone] CT Scan Report Patient: KO TOSCANO Date: 09/24/18 MR#: [id number]: [facility] Acct ID:[id number]: Date: 1945[facility] Zip: [place] [id number] Age: 72Location: ED Sex: M Room/Bed: Att Phy: Diagnosis: NAUSEA, BALANCE ISSUES Hannah Phy: Zari Robertson CRNPService Date: 09/24/18 Fam Phy: Zari Robertson CRNPInterpreting Phy: Bill Rm MD Admit Phy: Ordering Phy: Gustavo Vicente DO cc: ~ CT OF THE HEAD WITHOUT CONTRAST CLINICAL HISTORY: dizzy COMPARISON STUDY: No previous studies for comparison. CT DOSE: 712.55 mGy.cm TECHNIQUE: Helical axial images of the head were obtained without IV contrast. Automated exposure control was utilized for the study. A dose lowering technique was utilized adhering to the principles of ALARA. FINDINGS: No acute intracranial hemorrhage, midline shift or mass effect is present. The ventricular system is normal. The basilar cisterns are patent. There are no extra axial collections. There are no findings to suggest acute dural sinus thrombosis or acute territorial infarct. White matter hypodensities suggest small vessel disease. There are no significant calvarial abnormalities. IMPRESSION: No acute intracranial findings. Electronically signed by: Bill Rm M.D. 09/24/2018 9:58 PM Dictated: 09/24/188 Transcribed: 09/24/18 215 Code Status & VTE Plan Code Status Full code VTE Prophylaxis Plan VTE Prophylaxis will be ordered: Yes PG Care Time/CCT Total # of Minutes Spent Total Time Spent with Patient: Total time spent is greater than 50% in coordination of care (as documented) at patient's floor/unit and/or counseling patient:
[2018-09-25 03:03] LABS: Basophils # (auto) 0.03 K/uL (0-0.2); Basophils % (auto) 0.4 %; Eosinophils # (auto) 0.14 K/uL (0-0.5); Eosinophils % (auto) 1.7 %; Hematocrit (blood only) 39.1 % (42-52); Hemoglobin 13.3 g/dL (14.0-18.0); Lymphocytes # (auto) 1.71 K/uL (1.2-3.4); Mean Corpuscular Volume 90.5 fL (80-100); Mean Platelet Volume 10.1 fL (7.4-10.4); Monocytes # (auto) 0.77 K/uL (0.11-0.59); Monocytes % (auto) 9.4 %; Neutrophils % (auto) 67.5 %; Platelet Count 193 K/uL (130-400); RDW Coefficient of Variation 14.3 % (11.5-14.5); RDW Standard Deviation 47.7 fL (36.4-46.3); Red Blood Count 4.32 M/uL (4.7-6.1); White Blood Count 8.15 K/uL (4.8-10.8)
[2018-09-25 03:13] LABS: INR 1.1 (0.9-1.1); Partial Thromboplastin Time 25.8 Seconds (21.0-31.0); Prothrombin Time 11.1 Seconds (9.0-12.0)
[2018-09-25 03:19] LABS: Alanine Aminotransferase 14 U/L (12-78); Albumin Level 3.2 gm/dl (3.4-5.0); Aspartate Aminotransferase 12 U/L (15-37); Blood Urea Nitrogen 17 mg/dl (7-18); Calcium 8.5 mg/dl (8.5-10.1); Carbon Dioxide 30 mmol/L (21-32); Chloride 102 mmol/L (98-107); Creatinine Clr Calc Pharmacy 54.1 ml/min; Est GFR (African American) 53.5; Est GFR (Non-African American) 46.2; Glucose 266 mg/dl (70-99); Potassium 4.1 mmol/L (3.5-5.1); Sodium 137 mmol/L (136-145)
[2018-09-25 03:24] LABS: Albumin Globulin Ratio 0.8 (0.9-2); Alkaline Phosphatase 71 U/L (45-117); Bilirubin,Total 0.4 mg/dl (0.2-1); Globulin 3.8 gm/dl (2.5-4.0); Troponin I < 0.015 ng/ml (0-0.045)
[2018-09-25 06:30] LABS: Estimated Average Glucose 237 mg/dl; Hemoglobin A1C 9.9 % (4.5-5.6)
[2018-09-25] MEDS ORDERED: LEVOTHYROXINE SODIUM 50 MCG TABLET PO SCH (06:30)
[2018-09-25] MEDS ORDERED: glipiZIDE 5 MG TAB PO SCH ×2 (06:30→07:00)
--- NOTE | 2018-09-25 06:53 | Magnetic Resonance Report ---
MR brain wo con HISTORY: 72 years-old Male dizzy acute dizziness with vertigo COMPARISON: Head CT 09/24/2016 TECHNIQUE: Multiplanar multisequence MRI of the brain was obtained without use of IV contrast. FINDINGS: No restricted diffusion to suggest acute or subacute infarction midline structures including the kevin us callosum, brainstem, optic chiasm, pituitary and pineal glands appear unremarkable on the sagittal T1 series. No cerebellar tonsillar herniation. Degenerative changes noted about the imaged cervical spine. No acute intracranial hemorrhage, midline shift, abnormal extra-axial collection, hydrocephalus or in tracranial mass. Mild age-related involutional changes. Moderate T2/FLAIR hyperintensities about the white matter of the bilateral cerebral hemispheres. The major flow voids at the level of the skull ba se appear to be patent. Mastoid air cells are generally clear. Mild mucosal thickening of the ethmoid and maxillary sinuses. Mild leftward bowing and spurring of the nasal septum. Skull, soft tissues an d orbits appear unremarkable. IMPRESSION: 1. No acute intracranial abnormality, specifically no acute or subacute infarction. 2. Mild age-related involutional changes with moderate T2/FLAIR hyperintensities about the white nan er suggestive of chronic microvascular ischemic disease. 3. Mild paranasal sinus disease. The above report was generated using voice recognition software. It may contain grammatical, syntax o r spelling errors. Electronically signed by: Gerald Crane M.D. 09/25/2018 6:51 AM
[2018-09-25] MEDS ORDERED: PNEUMOCOCCAL ADMINISTRATION CHARGE ONE (08:15)
[2018-09-25] MEDS ORDERED: PNEUMOCOCCAL POLYSACCHARIDES 25 MCG/0.5 ML VIAL/SYR IM ONE (08:15)
[2018-09-25] MEDS ORDERED: CARVEDILOL 6.25 MG TAB PO SCH (09:00)
[2018-09-25] MEDS ORDERED: INSULIN GLARGINE SOLOSTAR 100 UNITS/ML 3 ML PEN SC SCH (09:00)
[2018-09-25] MEDS ORDERED: LISINOPRIL 20 MG TAB PO SCH (09:00)
[2018-09-25] MEDS ORDERED: HEPARIN SOD 5,000 UNIT/0.5 ML VIAL SQ SCH (09:00)
[2018-09-25] MEDS ORDERED: PANTOprazole 40 MG TAB PO SCH (09:00)
[2018-09-25] MEDS ORDERED: CITALOPRAM 20 MG TAB PO SCH (09:00)
[2018-09-25] MEDS ORDERED: ASPIRIN 81 MG ECTAB PO SCH (09:00)
[2018-09-25] MEDS: REPAGLINIDE 1 MG TAB PO SCH ×2 (09:44→12:56)
[2018-09-25] MEDS: INSULIN ASPART 100 UNITS/ML 3 ML PEN SC SCH ×2 (09:45→12:56)
--- NOTE | 2018-09-25 09:47 | Cardiology Consultation ---
Date of Consultation September 25, 2018 Assessment & Plan (1) Vertigo: Mr. Gallagher is a 72 year old male with a history of Hypertension, Dyslipidemia, Type 2 DM, CKD, Sleep Apnea, Hypothyroidism, and CAD s/p CABG x 3 Vessels who developed vertigo / dysequilibrium after suddenly turning his head to the left during a conversation -- which is consistent with BPPV. Along with this symptom the patient had nausea -- so his increased vagal tone may have contributed to his bradycardia in addition to his chronotropic medication. We do NOT feel that his Bradycardia is contributing to his dysequilibrium / vertigo. Recommend treating with labyrinthine suppressants such as Meclizine or Diazepam until dysequilibrium / vertigo resolves. Present on Admission?: Yes (2) CAD, multiple vessel: Patient's EKG shows T wave inversions in leads V1 through V3 -- which are not new (present at time of Negative DSE in January 2018), cardiac enzymes are negative x 2, and he has not had any angina pectoris or anginal equivalent symptoms -- therefore no further ischemic work up is necessary. Recommend continuing the following: -- Carvedilol 12.5 mg bid. -- Aspirin 81 mg daily. -- Lisinopril 20 mg daily. -- Crestor 10 mg each evening. -- Maintain a low sodium, heart healthy diet. -- If BP remains elevated recommend increasing Lisinopril to 40 mg daily. Thank you for asking us to see this patient in consultation. Present on Admission?: Yes Supervising Physician Co-Signing Physician Notes Chapincito Duran MD History of Present Illness Reason for Consultation: -- Abnormal EKG -- T wave inversions in V1 through V3. -- CAD s/p CABG x 3 Vessels. Requesting Physician: Payton Denton MD Attending Physician: Chapincito Duran MD History of Present Illness Mr. Gallagher is a 72 year old male with a history of Hypertension, Dyslipidemia, Type 2 DM, CKD, Sleep Apnea, Hypothyroidism, and CAD s/p CABG x 3 Vessels who presented acutely to [facility] ER yesterday after the sudden onset of Dysequilibrium. Patient states that he was in his usual state of health leading up to yesterday -- although he has had some nasal congestion / sinus congestion over the past couple of weeks -- and patient was enjoying a visit from several relatives for Father's Day. He was sitting in a chair and while talking to his grandson - he turned his head quickly to the left to look at his grandson. He immediately felt "off balance" and dizzy. Difficulty walking in a straight line. He also had some nausea but no vomiting with his dysequilibrium. Patient is currently lying in bed and denies any vertigo, dizziness, or dysequilibrium currently -- but he still had his symptoms when walking back to b ed last evening after using the restroom. Patient offers no other complaints. He has been less active in recent months due to low back pain and knee pain -- but he can perform his ADL's, walk, carry groceries, climb stairs, etc without limiting cardiopulmonary symptoms. He specifically denies any exertional chest pain, heaviness, tightness, pressure, or any angina pectoris. He denies any exertional neck, jaw, back, or arm pain. No SOB, unusual GUERRERO, orthopnea or pnd. He further denies any palpitations, syncope, near syncope, lightheadedness, weak spells, or any faintness. Patient underwent a DOBUTAMINE STRESS ECHOCARDIOGRAM on 01/26/2018 which was Negative for Myocardial Ischemia at 74% MPHR. Baseline echo showed an LVEF of 60%. Also T wave abnormality in V1 through V3 was present before his January 2018 DSE. Allergies Allergy/AdvReac Type Severity Reaction Status Date / Time morphine Allergy Intermediate Itchy Verified 09/24/18 21:21 Home Medications Home Medications Medication Instructions Recorded Confirmed Type aspirin 81 mg PO QAM 03/29/18 09/24/18 History carvedilol 12.5 mg PO BID 03/29/18 09/24/18 History citalopram [Celexa] 20 mg PO QAM 03/29/18 09/24/18 History glipizide 10 mg PO QAM 03/29/18 09/24/18 History hydrochlorothiazide 25 mg PO QAM 03/29/18 09/24/18 History levothyroxine 50 mcg PO QAM 03/29/18 09/24/18 History lisinopril 20 mg PO QPM 03/29/18 09/24/18 History metformin 1,000 mg PO BIDM 03/29/18 09/24/18 History nitroglycerin 1 dose SUBLINGUAL UD PRN 03/29/18 09/24/18 History pantoprazole 40 mg PO QAM 03/29/18 09/24/18 History repaglinide [Prandin] 0.5 mg PO AC 03/29/18 09/24/18 History rosuvastatin [Crestor] 10 mg PO HS 03/29/18 09/24/18 History trazodone 100 mg PO HS 03/29/18 09/24/18 History Patient History Medical History Chronic back pain Depression Diabetes mellitus, type 2 GERD (gastroesophageal reflux disease) History of angina History of colon polyps Hyperlipidemia Hypertension Hypothyroidism Kidney stones Surgical History History of cardiac cath 07/2002, 11/2002 @ [facility] [place] History of colonoscopy History of coronary artery bypass graft 2002--triple bypass @ [facility] [place] follows with Dr. Duran History of heart artery stent 07/2002 @ [facility] [place] History of revision of total replacement of left knee joint x2 History of tonsillectomy and adenoidectomy History of tooth extraction History of total left knee replacement (TKR) Hx of arthroscopy of left knee x2 Social History Preferred Language: Belizean Communication Ability: Effective Strip Cleaner Required: No Beliefs That Will Affect Care: None Current Living Situation: Spouse Feels Safe at Home: Yes Safety Concerns: Feels Safe At This Time Smoking Status: Never smoker Second Hand Exposure: Yes (parents smoked) Hx Alcohol Use: No Hx Substance Use: No Physical Exam Physical Exam: GENERAL: Patient is in no acute distress. HEENT: Head is atraumatic, normocephalic. EOM's intact -- no nystagmus. Facies symmetric. No perioral cyanosis. NECK: No JVD. Carotid upstrokes + 2 bilaterally without bruits. JVP is at the level of the clavicle sitting upright. CHEST and LUNGS: Clear to auscultation throughout all lung mcclendon. No wheezes, rales, or rhonchi. CVS: S1 and S2 are regular without obvious murmurs, gallops, or rubs. PMI is nondisplaced. No lifts, heaves, or thrills. No abdominal aortic or renal bruits. ABDOMINAL EXAM: Bowel sounds are present. No masses, organomegaly, or tenderness. EXTREMITIES: No clubbing or cyanosis. No edema. Intact posterior tibial and radial pulses. NEUROLOGIC EXAM: Patient is awake, alert, and oriented. Pleasant and cooperative. Answers questions appropriately. Speech is clear. Normal movement in all 4 extremities. Gait pattern was not assessed. EKG 09/24/2018: -- Sinus bradycardia at 46 bpm with T wave inversions in V1 through V3. -- Compared to EKG 01/26/2018 HR has decreased by 9 bpm. TELEMETRY: -- Sinus rhythm to sinus bradycardia overnight with HR's in the 40's. -- No cardiac pauses or evidence of heart block. -- No tachy-arrhythmias. Troponin I: -- < 0.015 ng/ml x 2. Results & Data Vital Signs (Past 12 Hours) Vital Signs Temp Pulse Resp BP Pulse Ox 09/25/18 06:54 36.6 C 49 L 18 160/73 H 94 09/25/18 02:30 36.6 C 49 L 18 167/67 H 94 09/25/18 00:37 50 L 18 144/68 H 95 09/24/18 22:51 50 L 18 164/74 H 95 Laboratory Results Laboratory Results - last 24 hr 09/24/18 09/24/18 09/25/18 21:12 21:12 02:49 WBC 6.19 8.15 RBC 4.57 L 4.32 L Hgb 13.9 L 13.3 L Hct 41.1 L 39.1 L MCV 89.9 90.5 MCH 30.4 30.8 MCHC 33.8 34.0 RDW Std Deviation 46.7 H 47.7 H RDW Coeff of Kasey 14.1 14.3 Plt Count 206 193 MPV 10.6 H 10.1 Immature Gran % (Auto) 0.2 0.0 Neut % (Auto) 52.0 67.5 Lymph % (Auto) 31.7 21.0 Floyd % (Auto) 10.7 9.4 Eos % (Auto) 4.8 1.7 Baso % (Auto) 0.6 0.4 Immature Gran # (Auto) 0.01 0.00 Neut # (Auto) 3.22 5.50 Lymph # (Auto) 1.96 1.71 Floyd # (Auto) 0.66 H 0.77 H Eos # (Auto) 0.30 0.14 Baso # (Auto) 0.04 0.03 PT INR APTT PTT Ratio Sodium 139 Potassium 3.8 Chloride 101 Carbon Dioxide 29 Anion Gap 8.0 BUN 16 Creatinine 1.54 H Est Cr Clr Drug Dosing 53.6 Est GFR ( Amer) 51.8 Est GFR (Non-Af Amer) 44.7 BUN/Creatinine Ratio 10.6 Glucose 187 H POC Glucose Estimat Average Glucose Hemoglobin A1c Calcium 9.0 Total Bilirubin 0.4 AST 13 L ALT 16 Alkaline Phosphatase 74 Troponin I < 0.015 Total Protein 7.5 Albumin 3.6 Globulin 3.9 Albumin/Globulin Ratio 0.9 Lipase 172 09/25/18 09/25/18 09/25/18 02:49 02:49 02:49 WBC RBC Hgb Hct MCV MCH MCHC RDW Std Deviation RDW Coeff of Kasey Plt Count MPV Immature Gran % (Auto) Neut % (Auto) Lymph % (Auto) Floyd % (Auto) Eos % (Auto) Baso % (Auto) Immature Gran # (Auto) Neut # (Auto) Lymph # (Auto) Floyd # (Auto) Eos # (Auto) Baso # (Auto) PT 11.1 INR 1.1 APTT 25.8 PTT Ratio 1.0 Sodium 137 Potassium 4.1 Chloride 102 Carbon Dioxide 30 Anion Gap 5.0 BUN 17 Creatinine 1.50 H Est Cr Clr Drug Dosing 54.1 Est GFR ( Amer) 53.5 Est GFR (Non-Af Amer) 46.2 BUN/Creatinine Ratio 11.0 Glucose 266 H POC Glucose Estimat Average Glucose 237 Hemoglobin A1c 9.9 H Calcium 8.5 Total Bilirubin 0.4 AST 12 L ALT 14 Alkaline Phosphatase 71 Troponin I < 0.015 Total Protein 7.0 Albumin 3.2 L Globulin 3.8 Albumin/Globulin Ratio 0.8 L Lipase 09/25/18 06:53 WBC RBC Hgb Hct MCV MCH MCHC RDW Std Deviation RDW Coeff of Kasey Plt Count MPV Immature Gran % (Auto) Neut % (Auto) Lymph % (Auto) Floyd % (Auto) Eos % (Auto) Baso % (Auto) Immature Gran # (Auto) Neut # (Auto) Lymph # (Auto) Floyd # (Auto) Eos # (Auto) Baso # (Auto) PT INR APTT PTT Ratio Sodium Potassium Chloride Carbon Dioxide Anion Gap BUN Creatinine Est Cr Clr Drug Dosing Est GFR ( Amer) Est GFR (Non-Af Amer) BUN/Creatinine Ratio Glucose POC Glucose 254 H Estimat Average Glucose Hemoglobin A1c Calcium Total Bilirubin AST ALT Alkaline Phosphatase Troponin I Total Protein Albumin Globulin Albumin/Globulin Ratio Lipase Medications Administered Active Medications Generic Name Dose Route Start Last Admin Trade Name Freq PRN Reason Stop Dose Admin Acetaminophen 650 mg 09/25/18 02:36 Tylenol PO 10/25/18 02:35 Q4H PRN Pain or Fever Acetaminophen 1,000 mg 09/25/18 02:36 Ofirmev IV 10/25/18 02:35 Q8H PRN Pain or Fever Al Hydrox/Mg Hydrox/Simethicone 15 ml 09/25/18 02:36 Maalox PO 10/25/18 02:35 Q4H PRN Dyspepsia Aspirin 81 mg 09/25/18 09:00 09/25/18 09:45 Ecotrin Ectab PO 10/25/18 08:59 81 mg QAM RAMAKRISHNA Administration Carvedilol 6.25 mg 09/25/18 09:00 09/25/18 09:44 Coreg PO 10/25/18 08:59 6.25 mg BID RAMAKRISHNA Administration Citalopram Hydrobromide 20 mg 09/25/18 09:00 09/25/18 09:44 Celexa PO 10/25/18 08:59 20 mg QAM RAMAKRISHNA Administration Dextrose 25 - 50 ml 09/25/18 02:36 Dextrose 50% IV 10/25/18 02:35 UD PRN Hypoglycemia Protocol Protocol Glucagon 1 mg 09/25/18 02:36 Glucagen SQ 10/25/18 02:35 UD PRN Hypoglycemia Protocol Protocol Glucose 4 - 8 tabs 09/25/18 02:36 Dex4 Glucose PO 10/25/18 02:35 UD PRN Hypoglycemia Protocol Protocol Glucose 15 - 30 gm 09/25/18 02:36 Glucose 40% PO 10/25/18 02:35 UD PRN Hypoglycemia Protocol Protocol Heparin Sodium (Porcine) 5,000 units 09/25/18 09:00 09/25/18 09:45 Heparin Sodium (Porcine) SQ 10/25/18 08:59 5,000 units Q12 RAMAKRISHNA Administration Insulin Aspart 0 units 09/25/18 07:30 09/25/18 09:45 Novolog Flexpen SC 10/25/18 07:29 8 units ACHS RAMAKRISHNA Administration Insulin Glargine 15 units 09/25/18 09:00 09/25/18 09:44 Lantus Solostar Pen SC 10/25/18 08:59 15 units QAM RAMAKRISHNA Administration Levothyroxine Sodium 50 mcg 09/25/18 06:30 09/25/18 06:09 Synthroid PO 10/25/18 06:29 50 mcg DAILYBB RAMAKRISHNA Administration Lisinopril 20 mg 09/25/18 09:00 09/25/18 09:44 Zestril PO 10/25/18 08:59 20 mg QAM RAMAKRISHNA Administration Magnesium Hydroxide 30 ml 09/25/18 02:36 Milk Of Magnesia PO 10/25/18 02:35 Q12H PRN Constipation Meclizine HCl 25 mg 09/25/18 02:36 09/25/18 09:44 Antivert PO 10/25/18 02:35 25 mg Q6H PRN Administration Vertigo Miscellaneous 15 - 30 gm 09/25/18 02:36 Carbohydrates For Hypoglycemia PO 10/25/18 02:35 UD PRN Hypoglycemia Treatment Nitroglycerin 0.4 mg 09/25/18 02:36 Nitrostat SL 10/25/18 02:35 UD PRN Angina Ondansetron HCl 4 mg 09/25/18 02:36 Zofran IV 10/25/18 02:35 Q6H PRN NAUSEA/VOMITING Pantoprazole Sodium 40 mg 09/25/18 09:00 09/25/18 09:44 Protonix PO 10/25/18 08:59 40 mg QAM RAMAKRISHNA Administration Polyethylene Glycol 17 gm 09/25/18 02:36 Miralax Powder Packet PO 10/25/18 02:35 DAILY PRN Constipation Repaglinide 0.5 mg 09/25/18 07:30 09/25/18 09:44 Prandin PO 10/25/18 07:29 0.5 mg AC RAMAKRISHNA Administration Rosuvastatin Calcium 10 mg 09/25/18 21:00 Crestor PO 10/25/18 20:59 HS RAMAKRISHNA Trazodone HCl 100 mg 09/25/18 21:00 Desyrel PO 10/25/18 20:59 HS RAMAKRISHNA
[2018-09-25] MEDS ORDERED: hydroCHLOROthiazide 25 MG TAB PO STA (14:59)
--- NOTE | 2018-09-25 15:09 | Discharge Summary ---
Date of Service September 25, 2018 Admission HPI Per Admitting Provider The patient presents to the emergency department with dizziness with movement accompanied by nausea without vomiting, that began abruptly in the afternoon. He denies any other accompanying neurologic symptoms. He reports he is never had this type of symptoms in the past. He does state that the symptoms are completely gone while he is motionless. Primary Care Provider: ANTHONY Marshall The patient is a 72-year-old male with a past medical history including hypertension, depression, diabetes mellitus, hypothyroidism, GERD, hyperlipidemia and insomnia, who presents to the emergency department with acute onset of vertiginous type symptoms that are positional, worsened by movement in any direction, and resolved quickly at rest. Principal Diagnosis BPPV Discharge Exam Constitutional WD/WN, vitals as above Eyes PERRL, conjunctivae normal, anicteric sclerae ENMT external ear and nose normal, oropharynx normal Neck trachea midline, no thyromegaly Respiratory normal respiratory effort, lungs clear to auscultation Cardiovascular RRR, no murmur, no edema Gastrointestinal (Abdomen) normal bowel sounds, soft, nontender, no hepatosplenomegaly Musculoskeletal Extremities: extremities normal to inspection; no cyanosis and no clubbing Skin no rashes, warm and dry Neurologic CN's II-XI intact bilaterally (No nystagmus), deep tendon reflexes 2+ bilaterally, moves all extremities and awake; no focal motor deficits Speech / Cognition: normal speech and no expressive aphasia Motor/Sensory: no tremor and no sensory deficit Psychiatric A+Ox3, euthymic affect Discharge Data Allergies Allergy/AdvReac Type Severity Reaction Status Date / Time morphine Allergy Intermediate Itchy Verified 09/24/18 21:21 Consultations 09/25/18 00:20 ED Decision to Admit Stat 09/25/18 02:36 Consult Cardiology Routine Consult Case Management - Discharge Planning Routine Ordered Studies 09/24/18 21:02 CT head/brain wo con Stat 09/25/18 00:06 MR brain wo con Urgent Hospital Course (1) Dizziness: Symptoms are suggestive of vertigo, with admission physical examination noting serous effusion with right tympanic membrane. CT of head is negative. MRI of brain negative for stroke Symptoms were completely resolved by the time of discharge after he received Valium and meclizine in the ER -He will be sent home with a as needed prescription for meclizine (2) Abnormal EKG: EKG with T wave inversions in the anterior chest leads V1 through V3 that is reportedly present previously as per cardiology and he had a normal dobutamine stress echocardiogram in the fall 2017 after having the abnormal appearing EKG. Bradycardia likely secondary to beta-yamilex use and exacerbated by nausea associated with vertigo Heart rates were in the 60s at the time of discharge Cardiology saw the patient did not think the bradycardia was contributing to his symptoms and felt it was safe to remain on his usual dose of carvedilol 12.5 mg p.o. twice daily at the time of discharge Troponin is negative x2 He had no chest pain or angina at all prior to admission or during his hospitalization (3) Bradycardia with 41-50 beats per minute: As above, cardiology states safe to remain on usual dose of carvedilol given history of CAD (4) Hypertension: Blood pressures were elevated here after reducing the dose of carvedilol x1 dose and his HCTZ was placed on hold -He was restarted on his lisinopril, HCTZ, and he will be returned to his usual dose of carvedilol this evening when he is discharged -Follow-up with PCP (5) Diabetes mellitus: Blood sugars were elevated here in the 200s, his hemoglobin A1c was quite high at 9.9% He met with the diabetic nurse educator who recommended lifestyle changes and following up with his PCP to discuss and improved diabetes regimen -He can restart his home metformin, glipizide, and Prandin upon discharge (6) Hyperlipidemia: Continue rosuvastatin 10 mg p.o. bedtime. Lipid panel was very well controlled in 06/2017 (7) GERD (gastroesophageal reflux disease): Continue pantoprazole 40 mg every morning. (8) Depression: Depression/insomnia- Continue Celexa 20 mg every morning and trazodone 100 mg at bedtime (9) Insomnia: As above (10) Hypothyroidism (acquired): Continue levothyroxine 50 mcg every morning TSH should be checked routinely as an outpatient (11) Chronic kidney disease (CKD): His creatinine here was 1.50 which is slightly improved from his baseline of 1.7 -Continue lisinopril, HCTZ -Needs to be followed over time given that he has uncontrolled diabetes and hypertension Disposition-he is stable for discharge to home Total Time Total Time Spent Total Time Spent (In Minutes): Greater than 30 minutes Total Time Includes: Examination of the Patient, Discharge Planning, Medication Reconciliation and Communication With Other Providers (Discussed with ARLIN Maurer from cardiology) Discharge Plan Discharge Items Patient Disposition: Home - Self-Care Reason For Visit: VERTIGO, ABNORMAL EKG Discharge Diagnosis: Vertigo Condition: Good Discharge Goals: Diagnostic testing, Improve disease control and Learn about illness Activity: Resume your previous activity Lifting: Gradually increase as tolerated Bathing: No limitations Exercise/Sports: Gradually increase as tolerated Driving/Machine Use Comment: Do not drive if feeling dizzy Non-emergency contact: Primary Care Provider Call non-emergency contact if: you have any medication questions and your symptoms worsen Follow-up/Referrals: Zari Robertson CRNP [Primary Care Provider] - 09/28/18 2:10 pm (A follow up appt. has been made for you at your PCP office with Dr. Abbott on September 28 at 2:10pm.) Diet: Carb Consistent or DM2 and Heart Healthy Addtl Provider Instructions: You were admitted due to being unsteady on your feet with turning your head. You most likely have benign paroxysmal positional vertigo and this was treated with medication in the ER. Your symptoms were resolved by the time of discharge. You had an MRI of the brain which was negative for stroke. You can take meclizine 1 tablet every 6 hours as needed for dizziness. Your heart rate was low, but you were seen by the chemical etch operator and it was felt that it was safe to remain on your usual doses of heart medication. Your heart rate may have been slightly lower due to the nausea that was associated with your dizziness. Your EKG does appear slightly abnormal, but it has looked this way for quite some time and is not of great concern as per the chemical etch operator. Please follow-up with your primary care physician due to your recent hospitalization. Your blood sugar is also out of control and you need to discuss ways to better manage your blood sugar at home with your primary care physician. Prescriptions: New meclizine 25 mg Tablet 25 mg PO Q6H PRN (Reason: Dizziness) Qty: 15 RF: 0 Continued carvedilol 12.5 mg Tablet 12.5 mg PO BID RF: 0 lisinopril 20 mg Tablet 20 mg PO QPM RF: 0 glipizide 10 mg Tablet 10 mg PO QAM RF: 0 aspirin 81 mg Tablet,Delayed Release (/Ec) 81 mg PO QAM RF: 0 citalopram [Celexa] 20 mg Tablet 20 mg PO QAM RF: 0 trazodone 100 mg Tablet 100 mg PO HS RF: 0 pantoprazole 40 mg Tablet,Delayed Release (Dr/Ec) 40 mg PO QAM RF: 0 metformin 1,000 mg Tablet 1,000 mg PO BIDM RF: 0 nitroglycerin 0.4 mg Tablet, Sublingual 1 dose Sublingual UD PRN (Reason: Angina) RF: 0 hydrochlorothiazide 25 mg Tablet 25 mg PO QAM RF: 0 repaglinide [Prandin] 1 mg Tablet 0.5 mg PO AC RF: 0 rosuvastatin [Crestor] 10 mg Tablet 10 mg PO HS RF: 0 levothyroxine 50 mcg Capsule 50 mcg PO QAM RF: 0 Stand-Alone Forms: [facility] Discharge Orders: Discharge Order (Routine); Ordered 09/25/18 Ordered By: Payton Denton Admission Data Admit Date/Time: 09/25/18 01:14 Attending Provider: Payton Denton Admit Provider: Bogdan De Leon Primary Care Provider: Zari Robertson Other Providers: Bogdan De Leon ; Chapincito Duran Service: Telemetry Other Pending Studies at Discharge: No
[2018-09-25] MEDS ORDERED: TRAZODONE HCL 100 MG TAB PO SCH (21:00)
[2018-09-25] MEDS ORDERED: ROSUVASTATIN CALCIUM 10 MG TAB PO SCH (21:00)
--- NOTE | 2018-09-26 14:22 | Coding Query ---
CHRONIC KIDNEY DISEASE To promote full compliance with coding requirements relating to patient care, physician participation is requested in all cases of assistant warehouse manager uncertainty. Please assist us with the question(s) below: Coding Question(s): Please specify the known or suspected type by placing an "X" within the parenthesis (x). If other, please document type. Please document Staging if known: ( ) Stage I >90 Kidney damage with normal or elevated GFR. ( ) Stage II 60-89 Kidney damage with mildly decreased kidney function (x ) Stage III 30-59 Moderately decreased kidney function ( ) Stage IV 15-29 Severely decreased kidney function ( ) Stage V <15 Renal failure (or dialysis) ( ) End Stage ( ) Unknown CODING QUERY FOR UNCONTROLLED DIABETES Coding Question: The term uncontrolled Diabetes was used throughout the record. To be able to code this diagnosis properly, could you please clarify the diagnosis below: ( ) Uncontrolled Diabetes meaning hypoglycemia (x ) Uncontrolled Diabetes meaning hyperglycemia ( ) Other (please specify) MTDD
== END 2018-09-25 15:50 | disposition home or self-care (01) | DRG 149 ==
LOC: ED 20:40 → SUATTDRO 09-25 01:14 → 2S 09-25 01:14

== ENCOUNTER 2022-11-18 14:55 | Observation (INO) ==
[2022-11-18 15:56] LABS: Basophils # (auto) 0.05 K/uL (0-0.2); Basophils % (auto) 0.7 %; Eosinophils # (auto) 0.17 K/uL (0-0.50); Eosinophils % (auto) 2.3 %; Hematocrit (blood only) 40.3 % (42.0-52.0); Hemoglobin 13.6 g/dl (14.0-18.0); Immature Granulocytes # (auto) 0.02 K/uL (0.01-0.20); Immature Granulocytes % (auto) 0.3 %; Lymphocytes # (auto) 1.77 K/uL (1.2-3.4); Lymphocytes % (auto) 23.7 %; Mean Corpuscular Hemoglobin 31.7 pg (25.0-34.0); Mean Corpuscular Hgb Conc 33.7 g/dL (32.0-36.0); Mean Corpuscular Volume 93.9 fL (80.0-100.0); Mean Platelet Volume 10.2 fL (9.4-12.4); Monocytes # (auto) 0.76 K/uL (0.11-0.59); Monocytes % (auto) 10.2 %; Neutrophils % (auto) 62.8 %; Platelet Count 235 K/uL (130-400); RDW Coefficient of Variation 13.2 % (11.5-14.5); Red Blood Count 4.29 M/uL (4.70-6.10); White Blood Count 7.47 K/ul (4.8-10.8)
[2022-11-18 16:14] LABS: Albumin Globulin Ratio 1.4 (0.9-2); Albumin Level 4.2 gm/dl (3.4-5.0); BUN Creatinine Ratio 13.8 (10-20); Bilirubin,Total 0.4 mg/dl (0.2-1.0); Calcium 9.4 mg/dl (8.6-10.3); Creatinine Clr Calc Pharmacy 37.3 ml/min; Est GFR (African American) 39.6 ml/min; Est GFR (Non-African American) 34.2 ml/min; Globulin 3.1 gm/dl (2.5-4.0); Potassium 4.1 mmol/L (3.5-5.1); Total Protein 7.3 gm/dl (6.0-8.3)
--- NOTE | 2022-11-18 16:16 | XRay Report ---
XR chest 1V not portable CLINICAL HISTORY: Chest pain, nonspecific TECHNIQUE: Single frontal radiograph of the chest was obtained. Comparison: Comparison is made to chest radiograph 07/09/2019 FINDINGS: Median sternotomy wires are unchanged. Calcified aortic knob is seen. The lungs are clear. No evidenc e of pleural effusion or pneumothorax. IMPRESSION: No acute chest disease. ACT 112: Negative or not required by law. Electronically signed by: Jared Cruz M.D. 11/18/2022 4:15 PM
[2022-11-18 16:18] LABS: Troponin I High Sensitivity 8.6 pg/ml (0-20)
[2022-11-18 16:24] LABS: Partial Thromboplastin Time 28.8 Seconds (21.0-31.0); Prothrombin Time 10.9 Seconds (9.0-12.0)
--- NOTE | 2022-11-18 17:29 | History & Physical Report ---
Date of Service November 18, 2022 Assessment & Plan (1) GUERRERO (dyspnea on exertion): Plan: -Admit to the PCU on tele -Currently stable -Patient has been experiencing progressive GUERRERO and fatigue over the past 3-6 months -Unclear if the bradycardia he experienced earlier today is associated with his symptoms as he has been asymptomatic while bradycardic at rest while in the ED -Symptoms are more concerning for possible progression of his obstructive CAD; his last Heart Cath in 2019 revealed 50% mid RCA, 90% ostial RV marginal branch, and 80% ostial right PDA -The patient did have his dose of Imdur increased from 30 mg to 60 mg daily in June, unsure if this could be contributing to his fatigue? -Initial cardiac workup in the ED has been unremarkable, will repeat a two hour high sen trop now -Will obtain TSH with refelx free T4 as well -Cardiology consult placed -SQ heparin for DVT PPX -HH, DMII diet -AM CBC, CMP, Mag, PT/INR (2) CAD, multiple vessel: Plan: -Continue aspirin, Imdur,and ranolazine for now (3) Hypothyroidism: Plan: -Will follow TSH -Continue levothyroxine (4) Diabetes mellitus, type 2: Plan: -Hold oral regimens -Monitor BSH ACHS, goal is 110-160 -Start 5 units lantus BID, CF 50 -DMII and HH diet (5) Hypertension: Plan: -Stable -will hold carvedilol overnight due to recent bradycardia (6) Hyperlipidemia: Plan: -Continue statin (7) GERD (gastroesophageal reflux disease): Plan: -Continue pantoprazole Plan The patient was discussed with Dr. Jensen at the time of the admission History of Present Illness Chief Complaint: Fatigue, bradycardia Primary Care Provider: DO Lukas Erickson is a 76 year old male with a PMH significant for hypertension, hypercholesteremia, class I angina pectoris, and his coronary artery disease (CABG x3, 2002; patent grafts, non interveneable RV marginal branch, August 2019), DMII, hypothyroidism, BRONSON and CKD who presented to the [facility] ED on 11/18 with complaints of progressive GUERRERO with intermittent chest pain with exertion. In the ED the patient was noted to be bradycardic with HR in the 50's a times but was otherwise stable. Labs were significant for a sodium of 133 and initial high sen trop WNL. Chest xray was read as "No acute chest disease.". We were asked to admit the patient for chest pain rule out due to his complex cardiac history. At the time of the exam the patient was sitting in bed in no acute distress with his sitting bedside. He states that over the past 3-6 months he has noticed increased GUERRERO and fatigue with his normal activities such as yard work. He denies chest pain with his activities but will either have to stop to rest or will be exhausted for the rest of the day after his normal activities. Today, he and his we out doing errands. He walked approximately 100 feet from their car to their next destination and states that he was significantly SOB and fatigued. He explains that there was a slight uphill gradient. He experienced the same symptoms walking back down the same area while going to their car. He checked his pulse shortly after and noticed that his pulse was 40 BPM. He denies episodes of lightheadedness/dizziness, syncope or near-syncope during this time. When asked if these symptoms were similar to his previous symptoms when he required CABG, he states "no". He had chest pain with his previous need for CABG. He denies any symptoms while at rest since arrival to the ED, despite his HR falling to the 50's at times. He has been dealing with intermitted sore throat and swollen lymph nodes over the past 6 months. He has been seen by his PCP for this complaint and completed a course of abx which did not improve his symptoms. He denies fever, chills, night sweats, and unintentional weight loss over this time. When asked, he notes significant post-nasal drip over this time and persistent seasonal allergies. He wishes to be a full code and would want his to make medical decisions for him if he could not make them himself. Please refer to Dr. Jensen's attestation for any changes to the treatment plan Allergies Allergy/AdvReac Type Severity Reaction Status Date / Time morphine Allergy Intermediate Itchy Verified 11/18/22 17:15 Home Medications Medication Instructions Recorded Confirmed Type aspirin 81 mg tablet,delayed 81 mg PO QAM 03/29/18 11/18/22 History release cyanocobalamin (vitamin B-12) 5,000 mcg sublingual QAM 02/14/19 11/18/22 History 5,000 mcg sublingual tablet nitroglycerin 0.4 mg sublingual 0.4 mg sublingual Q5M PRN Angina 09/04/19 11/18/22 Rx tablet #25 tabs ondansetron 4 mg disintegrating 4 mg PO Q6H PRN nausea and 07/10/21 11/18/22 Rx tablet vomiting #14 tabs ranolazine 500 mg tablet,extended 500 mg PO BID #180 tabs 05/31/22 11/18/22 Rx release,12 hr glipizide 10 mg tablet 10 mg PO QAM #90 tabs 06/17/22 11/18/22 Rx hydrochlorothiazide 25 mg tablet 25 mg PO QAM #90 tabs 06/17/22 11/18/22 Rx isosorbide mononitrate 60 mg 60 mg PO DAILY #90 tabs 06/17/22 11/18/22 Rx tablet,extended release 24 hr levothyroxine 50 mcg capsule 50 mcg PO QAM #90 caps 06/17/22 11/18/22 Rx metformin 1,000 mg tablet 1,000 mg PO BIDM #180 tabs 06/17/22 11/18/22 Rx pantoprazole 40 mg tablet,delayed 40 mg PO QAM #90 tabs 06/17/22 11/18/22 Rx release rosuvastatin 10 mg tablet (Crestor) 10 mg PO HS #90 tabs 06/17/22 11/18/22 Rx trazodone 100 mg tablet 100 mg PO HS #90 tabs 06/17/22 11/18/22 Rx carvedilol 25 mg tablet 25 mg PO BID #180 tabs 06/23/22 11/18/22 Rx citalopram 20 mg tablet 20 mg PO DAILY #90 tabs 06/24/22 11/18/22 Rx fluticasone propionate 50 1 spray intranasal DAILY PRN 06/24/22 11/18/22 Rx mcg/actuation nasal Congestion #16 grams spray,suspension Past Med/Surg History Medical History Allergic rhinitis CAD, multiple vessel Chronic back pain Depression Diabetes mellitus, type 2 GERD (gastroesophageal reflux disease) History of colon polyps Hyperlipidemia Hypertension Hypothyroidism Kidney stones Surgical History History of cardiac cath 07/2002, 11/2002 @ [facility] [place] History of colonoscopy History of coronary artery bypass graft (2002) 2002--triple bypass @ [facility] [place] follows with Dr. Duran History of heart artery stent 07/2002 @ [facility] [place] History of revision of total replacement of left knee joint x2 History of tonsillectomy and adenoidectomy History of tooth extraction History of total left knee replacement (TKR) Hx of arthroscopy of left knee x2 Family History Father No problems noted. Mother No problems noted. Social History Smoking Status: Never smoker Second Hand Exposure: Yes (parents smoked); Do You Dip or Chew Tobacco: No; Hx Alcohol Use: No Hx Substance Use: No Preferred Language: [place] Communication Ability: Effective Visual Impairment: Partially Limited Hearing Ability: Normal [employer] Operator Required: No Beliefs That Will Affect Care: None marital status: Current Living Situation: Spouse current occupational status: retired How many Children do You have: 4 Feels Safe at Home: Yes Childhood Exposure to Second-Hand Smoke: Yes (father) Diet: diabetic Diet Comment: diabetic diet caffeine: Yes during the past year weight has: remained stable Dental Care, Regularly: Yes Physical Activity Frequency: Daily Seatbelt Use: always Sunscreen Use: Yes (sometimes ) Assistive Devices: None Physical Exam Physical Exam: Physical Exam: General: In no acute distress, stated age, well-nourished, good hygiene HEENT: Normocephalic, atraumatic, no scleral icterus, pupils around round, symmetrical, and reactive to light, moist mucus membranes, no significant lymphadenopath with palpation over the BL anterior/posterior cervical chains, as-well-as submandibular chains, no erythema noted in the oropharynx, trachea midline, no thyromegaly Chest/Pulm: No respiratory distress, symmetrical chest expansion, clear breath sounds throughout Cardiac: RRR, no murmurs noted Abdomen: Negative for ascites and bruising, normoactive bowel sounds, soft, n on-tender to palpation throughout Musculoskeletal: Symmetrical and without signs of acute trauma, upper and lower extremities with full ROM, no atrophy, spasticity, or flaccidity Extremities: Radial, dorsalis pedis, and posterior tibial pulses are intact and symmetrical, no edema noted in the BL LE's Skin: Warm, dry, no rashes , lesions, or scars noted Neuro: Alert and oriented to person, place, month, year, and president, no focal defects, no tremors noted Psych: No acute distress, calm and cooperative during the exam Results & Data Results & Data Vital Signs (Past 12 Hours) Vital Signs Temp Pulse Pulse Resp BP Pulse Ox O2 Del Method 11/18/22 17:07 76 11/18/22 16:26 48 L 18 95 Room Air 11/18/22 15:04 36.2 C L 50 L 20 176/79 H 98 Room Air Laboratory Results Abnormal lab results 11/18/22 11/18/22 Range/Units 15:10 15:10 RBC 4.29 L (4.70-6.10) M/uL Hgb 13.6 L (14.0-18.0) g/dl Hct 40.3 L (42.0-52.0) % [place] # (Auto) 0.76 H (0.11-0.59) K/uL Sodium 133 L (136-145) mmol/L Chloride 96 L (98-107) mmol/L Anion Gap 12 H (3-11) BUN 26 H (6-23) mg/dl Creatinine 1.88 H (0.6-1.4) mg/dl Glucose 104 H (70-99(Fasting)) mg/dl Diagnostic Findings Chest X-Ray 11/18/22 15:09 XR chest 1V not portable CLINICAL HISTORY: Chest pain, nonspecific TECHNIQUE: Single frontal radiograph of the chest was obtained. Comparison: Comparison is made to chest radiograph 07/09/2019 FINDINGS: Median sternotomy wires are unchanged. Calcified aortic knob is seen. The lungs are clear. No evidence of pleural effusion or pneumothorax. IMPRESSION: No acute chest disease. ACT 112: Negative or not required by law. Electronically signed by: Jared Cruz M.D. 11/18/2022 4:15 PM ECG Additional Comments: Sinus bradycardia without significant ST segment or T-wave changes compared to previous Code Status & VTE Plan Code Status Full code VTE Prophylaxis Plan VTE Prophylaxis will be ordered: Yes Supervising Physician Co-Signing Physician Notes Patient seen and examined, chart reviewed, case discussed with Rod Sanchez PA-C and I agree with the assessment and plan as above except as otherwise noted Labs and images reviewed 76-year-old male with hypertension, hyperlipidemia, CAD s/p CABG, DM2, hypo thyroidism, BRONSON, CKD who presents with progressive dyspnea on exertion and chest pain on exertion. Has had chronically increasing dyspnea over the last several months, noted to be bradycardic in the ER. Sudden change in symptoms today with sudden shortness of breath and fatigue with severe GUERRERO, pulse at that time was 40s. Heart cath 2020 showed 90% ostial marginal branch and 80% ostial PDA diseas e. Initial troponin normal, repeat is pending. Heart rate is regular, bradycardic. Lungs are clear at bedside given underlying cardiac disease and progressive GUERRERO with concern for underlying ischemic disease agree with admission, trend troponin, and cardiology consultation. Lower suspicion for symptomatic bradycardia. Carvedilol held for bradycardia, dose reduce to 12.5mg BID if rate improved and doing well in AM. PG Care Time/CCT Total # of Minutes Spent Total Time Spent with Patient: Total time spent is greater than 50% in coordination of care (as documented) at patient's floor/unit and/or counseling patient: [place] [address] INT INP/OBS CARE 3/75MIN Patient Type Established Medical Decision Making High Complexity Diagnoses GUERRERO (dyspnea on exertion) R06.00 CAD, multiple vessel I25.10 Hypothyroidism E03.9 Diabetes mellitus, type 2 E11.9 Hypertension I10 Hyperlipidemia E78.5 GERD (gastroesophageal reflux disease) K21.9
[2022-11-18] MEDS ORDERED: DEXTROSE 50% 50 ML SYRINGE IV PRN (17:56)
[2022-11-18] MEDS ORDERED: GLUCOSE 10 TAB/TUBE PO PRN (17:56)
[2022-11-18] MEDS ORDERED: GLUCOSE 40% GEL 15 GM TUBE PO PRN (17:56)
[2022-11-18] MEDS ORDERED: GLUCAGON FOR INJ 1 MG VIAL SQ PRN (17:56)
[2022-11-18] MEDS ORDERED: CARBOHYDRATES FOR HYPOGLYCEMIA PO PRN (17:56)
--- NOTE | 2022-11-18 19:09 | Emergency Department Note ---
History of Present Illness General Chief Complaint: Bradycardia Stated Complaint: DOC REF,LOW HEART RATE (44-46), Time Seen by Provider: 11/18/22 16:33 History of Present Illness Provider Complaint: shortness of breath Onset (ago): week(s) (3) Severity: moderate Consistency/Duration: + intermittent and + improved Relieved By: + rest Exacerbated By: + exertion Context: + occurred during exertion; no recent illness, no choking/aspiration, no medication noncompliance or no recent travel Associated symptoms: + chest pain (intermittent); no pain with inspiration, no wheezing, no sputum production, no orthopnea, no lower extremity pain, no palpitations, no nausea/vomiting, no abdominal pain or no chest congestion Home Medications Medication Instructions Recorded Confirmed Type aspirin 81 mg tablet,delayed 81 mg PO QAM 03/29/18 11/18/22 History release cyanocobalamin (vitamin B-12) 5,000 mcg sublingual QAM 02/14/19 11/18/22 History 5,000 mcg sublingual tablet nitroglycerin 0.4 mg sublingual 0.4 mg sublingual Q5M PRN Angina 09/04/19 11/18/22 Rx tablet #25 tabs ondansetron 4 mg disintegrating 4 mg PO Q6H PRN nausea and 07/10/21 11/18/22 Rx tablet vomiting #14 tabs ranolazine 500 mg tablet,extended 500 mg PO BID #180 tabs 05/31/22 11/18/22 Rx release,12 hr glipizide 10 mg tablet 10 mg PO QAM #90 tabs 06/17/22 11/18/22 Rx hydrochlorothiazide 25 mg tablet 25 mg PO QAM #90 tabs 06/17/22 11/18/22 Rx isosorbide mononitrate 60 mg 60 mg PO DAILY #90 tabs 06/17/22 11/18/22 Rx tablet,extended release 24 hr levothyroxine 50 mcg capsule 50 mcg PO QAM #90 caps 06/17/22 11/18/22 Rx metformin 1,000 mg tablet 1,000 mg PO BIDM #180 tabs 06/17/22 11/18/22 Rx pantoprazole 40 mg tablet,delayed 40 mg PO QAM #90 tabs 06/17/22 11/18/22 Rx release rosuvastatin 10 mg tablet (Crestor) 10 mg PO HS #90 tabs 06/17/22 11/18/22 Rx trazodone 100 mg tablet 100 mg PO HS #90 tabs 06/17/22 11/18/22 Rx carvedilol 25 mg tablet 25 mg PO BID #180 tabs 06/23/22 11/18/22 Rx citalopram 20 mg tablet 20 mg PO DAILY #90 tabs 06/24/22 11/18/22 Rx fluticasone propionate 50 1 spray intranasal DAILY PRN 06/24/22 11/18/22 Rx mcg/actuation nasal Congestion #16 grams spray,suspension Allergies Allergy/AdvReac Type Severity Reaction Status Date / Time morphine Allergy Intermediate Itchy Verified 11/18/22 17:15 Past Med/Surg History Medical History Allergic rhinitis CAD, multiple vessel Chronic back pain Depression Diabetes mellitus, type 2 GERD (gastroesophageal reflux disease) History of colon polyps Hyperlipidemia Hypertension Hypothyroidism Kidney stones Surgical History [place] cardiac [place]2002[place] [facility] [place] of [place]oscopy History of coronary artery bypass graft (2002) 2002--triple [place] [facility] [place]. Duran History of heart artery stent 07[place] [facility] [place] History of revision of total replacement of left knee joint x2 History of tonsillectomy and adenoidectomy History of tooth extraction History of total left knee replacement (TKR) Hx of arthroscopy of left knee x2 Family History Father No problems noted. Mother No problems noted. Social History Smoking Status: Never smoker Second Hand Exposure: Yes (parents smoked); Do You Dip or Chew Tobacco: No; Hx Alcohol Use: No Hx Substance Use: No Preferred Language: Kiswahili Communication Ability: Effective Visual Impairment: Partially Limited Hearing Ability: Normal Test Hole Driller Required: No Beliefs That Will Affect Care: None marital status: Current Living Situation: Spouse current occupational status: retired How many Children do You have: 4 Feels Safe at Home: Yes Childhood Exposure to Second-Hand Smoke: Yes (father) Diet: diabetic Diet Comment: diabetic diet caffeine: Yes during the past year weight has: remained stable Dental Care, Regularly: Yes Physical Activity Frequency: Daily Seatbelt Use: always Sunscreen Use: Yes (sometimes ) Assistive Devices: None Physical Exam Vital Signs: Vital Signs - 24 hr 11/18/22 15:04 11/18/22 15:04 11/18/22 16:26 Temperature 36.2 C L Temperature Source Temporal Artery Sc an Pulse Rate 50 L Pulse Rate [Right Finger] 48 L Pulse Rhythm [Righ t Finger] Regular Pulse Strength [Ri ght Finger] Normal Respiratory Rate 20 18 Respiratory Effort / Characteristics Short of Breath Non-Labored Non-Labored Sponta neous Respiratory Depth Normal Respiratory Patter n Regular Blood Pressure 176/79 H Blood Pressure [Ri ght Arm] Blood Pressure Mirian n 111 Blood Pressure Mirian n [Right Arm] Pulse Oximetry 98 95 Oxygen Delivery Me thod Room Air Room Air Sepsis Recent Feve r Within 48 Hours No Sepsis New/Unexpla ined Change in Men madeline Status N/A Sepsis Action Take n by Nursing No Action Required 11/18/22 17:07 11/18/22 18:39 Temperature Temperature Source Pulse Rate 76 Pulse Rate [Right Finger] 56 L Pulse Rhythm [Righ t Finger] Regular Pulse Strength [Ri ght Finger] Normal Respiratory Rate 19 Respiratory Effort / Characteristics SOB on Exertion Respiratory Depth Normal Respiratory Patter n Regular Blood Pressure Blood Pressure [Ri ght Arm] 162/76 H Blood Pressure Mirian n Blood Pressure Mirian n [Right Arm] 104 Pulse Oximetry 95 Oxygen Delivery Me thod Room Air Sepsis Recent Feve r Within 48 Hours Sepsis New/Unexpla ined Change in Men madeline Status Sepsis Action Take n by Nursing Physical Exam: Physical Exam GENERAL: oriented to person, place, and time. appears well-developed and well- nourished. HENT: Exam performed. - Head: Normocephalic and atraumatic. EYES: Conjunctivae and EOM are normal. Right eye exhibits no discharge. Left eye exhibits no discharge. No scleral icterus. NECK: Normal range of motion. Neck supple. No JVD present. CV: Normal rate, regular rhythm, normal heart sounds and intact distal pulses. There is no peripheral edema. Palpable radial pulses bue. PULM/CHEST: Effort normal and breath sounds normal. No respiratory distress. No stridor. no wheezes. no rales. ABD: The abdomen is soft. There is no tenderness. NEURO: Motor and sensation grossly intact. SKIN: Skin is warm and dry. He is not diaphoretic. PSYCH: normal mood and affect. Behavior is normal. Judgment and thought content normal. Course Course 1633: The patient was evaluated in room B9. A complete history and physical exam was performed Medical Decision Making Laboratory Data Attestation: I reviewed the patient's lab results. 11/18/22 15:10 11/18/22 15:10 Lab Results 11/18/22 11/18/22 11/18/22 Range/Units 15:10 15:10 15:10 WBC 7.47 (4.8-10.8) K/ul RBC 4.29 L (4.70-6.10) M/uL Hgb 13.6 L (14.0-18.0) g/dl Hct 40.3 L (42.0-52.0) % MCV 93.9 (80.0-100.0) fL MCH 31.7 (25.0-34.0) pg MCHC 33.7 (32.0-36.0) g/dL RDW Std Deviation 45.0 (36.4-46.3) fL RDW Coeff of Kasey 13.2 (11.5-14.5) % Plt Count 235 (130-400) K/uL MPV 10.2 (9.4-12.4) fL Immature Gran % (Auto) 0.3 % Neut % (Auto) 62.8 % Lymph % (Auto) 23.7 % Blackford % (Auto) 10.2 % Eos % (Auto) 2.3 % Baso % (Auto) 0.7 % Neut # (Auto) 4.70 (1.40-6.50) K/uL Lymph # (Auto) 1.77 (1.2-3.4) K/uL Blackford # (Auto) 0.76 H (0.11-0.59) K/uL Eos # (Auto) 0.17 (0-0.50) K/uL Baso # (Auto) 0.05 (0-0.2) K/uL Immature Gran # (Auto) 0.02 (0.01-0.20) K/uL PT 10.9 (9.0-12.0) Seconds INR 1.0 (0.9-1.1) APTT 28.8 (21.0-31.0) Seconds PTT Ratio 1.0 Sodium 133 L (136-145) mmol/L Potassium 4.1 (3.5-5.1) mmol/L Chloride 96 L (98-107) mmol/L Carbon Dioxide 25 (21-32) mmol/L Anion Gap 12 H (3-11) BUN 26 H (6-23) mg/dl Creatinine 1.88 H (0.6-1.4) mg/dl Est Cr Clr Drug Dosing 37.3 ml/min Est GFR ( Amer) 39.6 ml/min Est GFR (Non-Af Amer) 34.2 ml/min BUN/Creatinine Ratio 13.8 (10-20) Glucose 104 H (70-99(Fasting)) mg/dl POC Glucose (70-99) mg/dl Calcium 9.4 (8.6-10.3) mg/dl Total Bilirubin 0.4 (0.2-1.0) mg/dl AST 16 (13-39) U/L ALT 9 (7-52) U/L Alkaline Phosphatase 46 (34-104) U/L Troponin I High Sens 8.6 (0-20) pg/ml Total Protein 7.3 (6.0-8.3) gm/dl Albumin 4.2 (3.4-5.0) gm/dl Globulin 3.1 (2.5-4.0) gm/dl Albumin/Globulin Ratio 1.4 (0.9-2) SARS-CoV-2, RNA, NAAT (NEGATIVE) 11/18/22 11/18/22 11/18/22 Range/Units 18:10 18:11 18:36 WBC (4.8-10.8) K/ul RBC (4.70-6.10) M/uL Hgb (14.0-18.0) g/dl Hct (42.0-52.0) % MCV (80.0-100.0) fL MCH (25.0-34.0) pg MCHC (32.0-36.0) g/dL RDW Std Deviation (36.4-46.3) fL RDW Coeff of Kasey (11.5-14.5) % Plt Count (130-400) K/uL MPV (9.4-12.4) fL Immature Gran % (Auto) % Neut % (Auto) % Lymph % (Auto) % Blackford % (Auto) % Eos % (Auto) % Baso % (Auto) % Neut # (Auto) (1.40-6.50) K/uL Lymph # (Auto) (1.2-3.4) K/uL Blackford # (Auto) (0.11-0.59) K/uL Eos # (Auto) (0-0.50) K/uL Baso # (Auto) (0-0.2) K/uL Immature Gran # (Auto) (0.01-0.20) K/uL PT (9.0-12.0) Seconds INR (0.9-1.1) APTT (21.0-31.0) Seconds PTT Ratio Sodium (136-145) mmol/L Potassium (3.5-5.1) mmol/L Chloride (98-107) mmol/L Carbon Dioxide (21-32) mmol/L Anion Gap (3-11) BUN (6-23) mg/dl Creatinine (0.6-1.4) mg/dl Est Cr Clr Drug Dosing ml/min Est GFR ( Amer) ml/min Est GFR (Non-Af Amer) ml/min BUN/Creatinine Ratio (10-20) Glucose (70-99(Fasting)) mg/dl POC Glucose 60 L* 115 H (70-99) mg/dl Calcium (8.6-10.3) mg/dl Total Bilirubin (0.2-1.0) mg/dl AST (13-39) U/L ALT (7-52) U/L Alkaline Phosphatase (34-104) U/L Troponin I High Sens (0-20) pg/ml Total Protein (6.0-8.3) gm/dl Albumin (3.4-5.0) gm/dl Globulin (2.5-4.0) gm/dl Albumin/Globulin Ratio (0.9-2) SARS-CoV-2, RNA, NAAT NEGATIVE (NEGATIVE) Imaging Data Attestation: I personally reviewed and interpreted this imaging study as follows: My Impression: Chest x-ray negative. Airway clear. No pneumothorax. No consolidation. No cardiomegaly or cephalization.. No free air under the diaphragm. No fractures of the skeletal structures. Radiologist's Impression: Chest X-Ray 11/18/22 15:09 XR chest 1V not portable CLINICAL HISTORY: Chest pain, nonspecific TECHNIQUE: Single frontal radiograph of the chest was obtained. Comparison: Comparison is made to chest radiograph 07/09/2019 FINDINGS: Median sternotomy wires are unchanged. Calcified aortic knob is seen. The lungs are clear. No evidence of pleural effusion or pneumothorax. IMPRESSION: No acute chest disease. ACT 112: Negative or not required by law. Electronically signed by: Jared Cruz M.D. 11/18/2022 4:15 PM ECG Data Attestation: I personally reviewed and interpreted this ECG as follows: Interpretation: Sinus rhythm with a rate of 49. W[place] 160 QRS [address] elevation or ST depression. MDM Narrative Cardiac monitoring: An order was placed for continuous cardiac monitoring. The monitor shows a rate of 55 with sinus rhythm interpreted by me Patient was seen during a time of extreme volume and extreme acuity in the emergency department. Nursing triage protocols were initiated and labs were drawn by protocol in the triage area. Labs and imaging within normal limits. Patient has moderate HEART score. Patient will be admitted for a cardiac rule out [facility]. [facility] hospitalist team Dr. Hernandez made aware Impression & Plan Exertional dyspnea Discharge Plan Visit Data Chief Complaint: Bradycardia Stated Complaint: DOC REF,LOW HEART RATE (44-46), ED Provider: Michel Mcqueen Discharge Problem: Exertional dyspnea Patient Disposition: Admitted As Inpatient Discharge Instructions Interventions: ED Discharge Assessment Last Done: 11/18/22 19:12 Forms Stand Alone Forms: My [facility] Prescriptions Prescriptions: No Action nitroglycerin 0.4 mg tablet, sublingual 0.4 mg Sublingual Q5M PRN (Reason: Angina) Qty: 25 3RF ranolazine 500 mg tablet extended release 12 hr 500 mg PO BID Qty: 180 3RF glipizide 10 mg tablet 10 mg PO QAM Qty: 90 1RF Rx Instructions: Please update OLAYINKA BARRON DO new PCP hydrochlorothiazide 25 mg tablet 25 mg PO QAM Qty: 90 1RF Rx Instructions: Please update OLAYINKA BARRON DO new PCP isosorbide mononitrate 60 mg tablet extended release 24 hr 60 mg PO DAILY Qty: 90 3RF levothyroxine 50 mcg capsule 50 mcg PO QAM Qty: 90 1RF Rx Instructions: Please update OLAYINKA BARRON DO new PCP metformin 1,000 mg tablet 1,000 mg PO BIDM Qty: 180 1RF Rx Instructions: Please update OLAYINKA BARRON DO new PCP pantoprazole 40 mg tablet,delayed release (DR/EC) 40 mg PO QAM Qty: 90 1RF Rx Instructions: Please update OLAYINKA BARRON DO new PCP rosuvastatin [Crestor] 10 mg tablet 10 mg PO HS Qty: 90 1RF Rx Instructions: Please update OLAYINKA BARRON DO new PCP trazodone 100 mg tablet 100 mg PO HS Qty: 90 1RF Rx Instructions: Please update OLAYINKA BARRON DO new PCP carvedilol 25 mg tablet 25 mg PO BID Qty: 180 1RF Rx Instructions: Please update OLAYINKA BARRON DO new PCP cyanocobalamin (vitamin B-12) 5,000 mcg tablet, sublingual 5,000 mcg SL QAM fluticasone propionate 50 mcg/actuation spray,suspension 1 spray INTRANASAL DAILY PRN (Reason: Congestion) Qty: 16 3RF citalopram 20 mg tablet 20 mg PO DAILY Qty: 90 1RF aspirin 81 mg Tablet,Delayed Release (Dr/Ec) 81 mg PO QAM ondansetron 4 mg tablet,disintegrating 4 mg PO Q6H PRN (Reason: nausea and vomiting) Qty: 14 0RF Referrals Referrals: Olayinka Barron DO [Primary Care Provider] -
[2022-11-18 19:42] LABS: Thyroid Stimulating Hormone 4.914 uIu/ml (0.300-4.500)
[2022-11-18] MEDS: LANTUS PER UNIT CHARGE SQ SCH (20:33)
[2022-11-18] MEDS: RANOLAZINE 500 MG ER TAB PO SCH (20:37)
[2022-11-18] MEDS: INSULIN ASPART PER UNIT CHARGE SC SCH (20:42)
[2022-11-18] MEDS ORDERED: ROSUVASTATIN CALCIUM 10 MG TAB PO SCH (21:00)
[2022-11-18] MEDS ORDERED: traZODone HCL 100 MG TAB PO SCH (21:00)
[2022-11-18] MEDS: HEPARIN SOD 5,000 UNIT/0.5 ML VIAL SQ SCH (21:04)
[2022-11-18 21:17] LABS: T4 Free Thyroxine 0.82 ng/dl (0.61-1.60)
[2022-11-19] MEDS: HEPARIN SOD 5,000 UNIT/0.5 ML VIAL SQ SCH ×2 (06:32→13:29)
[2022-11-19 07:04] LABS: Basophils # (auto) 0.04 K/uL (0-0.2); Basophils % (auto) 0.6 %; Eosinophils # (auto) 0.18 K/uL (0-0.50); Eosinophils % (auto) 2.7 %; Hematocrit (blood only) 39.5 % (42.0-52.0); Hemoglobin 13.4 g/dl (14.0-18.0); Immature Granulocytes # (auto) 0.02 K/uL (0.01-0.20); Immature Granulocytes % (auto) 0.3 %; Lymphocytes # (auto) 1.36 K/uL (1.2-3.4); Mean Corpuscular Hemoglobin 31.2 pg (25.0-34.0); Mean Corpuscular Hgb Conc 33.9 g/dL (32.0-36.0); Mean Corpuscular Volume 92.1 fL (80.0-100.0); Mean Platelet Volume 10.2 fL (9.4-12.4); Monocytes # (auto) 0.91 K/uL (0.11-0.59); Monocytes % (auto) 13.4 %; Neutrophils # (auto) 4.28 K/uL (1.40-6.50); Platelet Count 208 K/uL (130-400); RDW Coefficient of Variation 12.9 % (11.5-14.5); RDW Standard Deviation 43.7 fL (36.4-46.3); Red Blood Count 4.29 M/uL (4.70-6.10); White Blood Count 6.79 K/ul (4.8-10.8)
[2022-11-19 07:30] LABS: Prothrombin Time 11.1 Seconds (9.0-12.0)
[2022-11-19 07:35] LABS: Albumin Globulin Ratio 1.3 (0.9-2); Albumin Level 3.8 gm/dl (3.4-5.0); BUN Creatinine Ratio 14.2 (10-20); Bilirubin,Total 0.5 mg/dl (0.2-1.0); Calcium 9.3 mg/dl (8.6-10.3); Creatinine Clr Calc Pharmacy 43.2 ml/min; Est GFR (African American) 47.4 ml/min; Est GFR (Non-African American) 40.9 ml/min; Globulin 2.9 gm/dl (2.5-4.0); Magnesium 1.8 mg/dl (1.7-2.4); Potassium 3.5 mmol/L (3.5-5.1); Total Protein 6.7 gm/dl (6.0-8.3)
[2022-11-19] MEDS: INSULIN ASPART PER UNIT CHARGE SC SCH ×2 (08:06→12:07)
[2022-11-19] MEDS: RANOLAZINE 500 MG ER TAB PO SCH (08:07)
[2022-11-19] MEDS: LANTUS PER UNIT CHARGE SQ SCH (08:08)
--- NOTE | 2022-11-19 08:29 | Electrocardiogram Report ---
Test Reason : Blood Pressure : / mmHG Vent. Rate : 049 BPM Atrial Rate : 049 BPM P-R Int : 160 ms QRS Dur : 076 ms QT Int : 430 ms P-R-T Axes : 108 003 046 degrees QTc Int : 388 ms Sinus bradycardia Low voltage QRS Nonspecific ST and T wave abnormality Abnormal ECG When compared with ECG of 10-JUL-2021 11:05, Premature ventricular complexes are no longer Present Confirmed by Siva Frederick ([id number]) on 11/19/2022 8:28:37 AM Referred By: REFERRED SELF Confirmed By:Daniel Frederick
[2022-11-19] MEDS ORDERED: PANTOprazole 40 MG TAB PO SCH (09:00)
[2022-11-19] MEDS ORDERED: hydroCHLOROthiazide 25 MG TAB PO SCH (09:00)
[2022-11-19] MEDS ORDERED: CITALOPRAM 20 MG TAB PO SCH (09:00)
[2022-11-19] MEDS ORDERED: ASPIRIN 81 MG ECTAB PO SCH (09:00)
[2022-11-19] MEDS ORDERED: ISOSORBIDE MONO EXTENDED REL 60 MG TABCR PO SCH (09:00)
[2022-11-19] MEDS ORDERED: LEVOTHYROXINE SODIUM 50 MCG TABLET PO SCH (09:00)
--- NOTE | 2022-11-19 15:38 | Discharge Summary ---
Date of Service November 19, 2022 Admission HPI Per Admitting Provider Lukas is a 76 year old male with a PMH significant for hypertension, hypercholesteremia, class I angina pectoris, and his coronary artery disease (CABG x3, 2002; patent grafts, non interveneable RV marginal branch, August 2019), DMII, hypothyroidism, BRONSON and CKD who presented to the [facility] ED on 11/18 with complaints of progressive GUERRERO with intermittent chest pain with exertion. In the ED the patient was noted to be bradycardic with HR in the 50's a times but was otherwise stable. Labs were significant for a sodium of 133 and initial high sen trop WNL. Chest xray was read as "No acute chest disease.". We were asked to admit the patient for chest pain rule out due to his complex cardiac history. At the time of the exam the patient was sitting in bed in no acute distress with his sitting bedside. He states that over the past 3-6 months he has noticed increased GUERRERO and fatigue with his normal activities such as yard work. He denies chest pain with his activities but will either have to stop to rest or will be exhausted for the rest of the day after his normal activities. Today, he and his we out doing errands. He walked approximately 100 feet from their car to their next destination and states that he was significantly SOB and fatigued. He explains that there was a slight uphill gradient. He experienced the same symptoms walking back down the same area while going to their car. He checked his pulse shortly after and noticed that his pulse was 40 BPM. He denies episodes of lightheadedness/dizziness, syncope or near-syncope during this time. When asked if these symptoms were similar to his previous symptoms when he required CABG, he states "no". He had chest pain with his previous need for CABG. He denies any symptoms while at rest since arrival to the ED, despite his HR falling to the 50's at times. He has been dealing with intermitted sore throat and swollen lymph nodes over the past 6 months. He has been seen by his PCP for this complaint and completed a course of abx which did not improve his symptoms. He denies fever, chills, night sweats, and unintentional weight loss over this time. When asked, he notes significant post-nasal drip over this time and persistent seasonal allergies. He wishes to be a full code and would want his to make medical decisions for him if he could not make them himself. Please refer to Dr. Jensen's attestation for any changes to the treatment plan Principal Diagnosis GUERRERO Discharge Exam General: In no acute distress, stated age, well-nourished, good hygiene HEENT: Normocephalic, atraumatic, no scleral icterus, pupils around round, symmetrical, and reactive to light, moist mucus membranes, no significant lymphadenopath with palpation over the BL anterior/posterior cervical chains, as-well-as submandibular chains, no erythema noted in the oropharynx, trachea midline, no thyromegaly Chest/Pulm: No respiratory distress, symmetrical chest expansion, clear breath sounds throughout Cardiac: RRR, no murmurs noted Abdomen: Negative for ascites and bruising, normoactive bowel sounds, soft, non-tender to palpation throughout Musculoskeletal: Symmetrical and without signs of acute trauma, upper and lower extremities with full ROM, no atrophy, spasticity, or flaccidity Extremities: Radial, dorsalis pedis, and posterior tibial pulses are intact and symmetrical, no edema noted in the BL LE's Skin: Warm, dry, no rashes , lesions, or scars noted Neuro: Alert and oriented to person, place, month, year, and president, no focal defects, no tremors noted Psych: No acute distress, calm and cooperative during the exam Discharge Data Allergies Allergy/AdvReac Type Severity Reaction Status Date / Time morphine Allergy Intermediate Itchy Verified 11/18/22 17:15 Consultations 11/18/22 17:01 ED Decision to Admit Stat 11/19/22 13:30 Consult Cardiology Routine Hospital Course (1) GUERRERO (dyspnea on exertion): -Admit to the PCU on tele -Currently stable -Patient has been experiencing progressive GUERRERO and fatigue over the past 3-6 months -Unclear if the bradycardia he experienced earlier today is associated with his symptoms as he has been asymptomatic while bradycardic at rest while in the ED -Symptoms are more concerning for possible progression of his obstructive CAD; his last Heart Cath in 2019 revealed 50% mid RCA, 90% ostial RV marginal branch, and 80% ostial right PDA -The patient did have his dose of Imdur increased from 30 mg to 60 mg daily in June, unsure if this could be contributing to his fatigue? -Initial cardiac workup in the ED has been unremarkable, will repeat a two hour high sen trop now -Cardiology consult placed will recommend to continue current management and obtain a stress test as an outpatient.. Patient can be discharged (2) CAD, multiple vessel: -Continue aspirin, Imdur,and ranolazine for now (3) Hypothyroidism: -Will follow TSH -Continue levothyroxine (4) Diabetes mellitus, type 2: -Hold oral regimens -Monitor BSH ACHS, goal is 110-160 -Start 5 units lantus BID, CF 50 -DMII and HH diet (5) Hypertension: -Stable -will hold carvedilol overnight due to recent bradycardia (6) Hyperlipidemia: -Continue statin (7) GERD (gastroesophageal reflux disease): -Continue pantoprazole Plan The patient was discussed with Dr. Jensen at the time of the admission Total Time Total Time Spent Total Time Spent (In Minutes): 32 Discharge Plan Discharge Items Patient Disposition: Home - Self-Care Reason For Visit: GUERRERO, CHEST PAIN RULE OUT Discharge Diagnosis: GUERRERO Condition on Discharge: Good Activity: Resume your previous activity Non-emergency contact: Primary Care Provider Call non-emergency contact if: you have any medication questions Follow-up/Referrals: Olayinka Barron DO [Primary Care Provider] - Diet: Heart Healthy Addtl Attending Provider Instructions: Cardiology will schedule an outpatient stress test. Pending Studies at Discharge: No Stand-Alone Forms: My [employer], Smoking Cessation Medications and DC Order Prescriptions: Continued nitroglycerin 0.4 mg tablet, sublingual 0.4 mg Sublingual Q5M PRN (Reason: Angina) Qty: 25 3RF ranolazine 500 mg tablet extended release 12 hr 500 mg PO BID Qty: 180 3RF glipizide 10 mg tablet 10 mg PO QAM Qty: 90 1RF Rx Instructions: Please update OLAYINKA BARRON DO new PCP hydrochlorothiazide 25 mg tablet 25 mg PO QAM Qty: 90 1RF Rx Instructions: Please update OLAYINKA BARRON DO new PCP isosorbide mononitrate 60 mg tablet extended release 24 hr 60 mg PO DAILY Qty: 90 3RF levothyroxine 50 mcg capsule 50 mcg PO QAM Qty: 90 1RF Rx Instructions: Please update OLAYINKA BARRON DO new PCP metformin 1,000 mg tablet 1,000 mg PO BIDM Qty: 180 1RF Rx Instructions: Please update OLAYINKA BARRON DO new PCP pantoprazole 40 mg tablet,delayed release (DR/EC) 40 mg PO QAM Qty: 90 1RF Rx Instructions: Please update OLAYINKA BARRON DO new PCP rosuvastatin [Crestor] 10 mg tablet 10 mg PO HS Qty: 90 1RF Rx Instructions: Please update OLAYINKA BARRON DO new PCP trazodone 100 mg tablet 100 mg PO HS Qty: 90 1RF Rx Instructions: Please update OLAYINKA BARRON DO new PCP carvedilol 25 mg tablet 25 mg PO BID Qty: 180 1RF Rx Instructions: Please update OLAYINKA BARRON DO new PCP cyanocobalamin (vitamin B-12) 5,000 mcg tablet, sublingual 5,000 mcg SL QAM fluticasone propionate 50 mcg/actuation spray,suspension 1 spray INTRANASAL DAILY PRN (Reason: Congestion) Qty: 16 3RF citalopram 20 mg tablet 20 mg PO DAILY Qty: 90 1RF aspirin 81 mg Tablet,Delayed Release (Dr/Ec) 81 mg PO QAM ondansetron 4 mg tablet,disintegrating 4 mg PO Q6H PRN (Reason: nausea and vomiting) Qty: 14 0RF Discharge Orders: Discharge Order (Routine); Ordered 11/19/22 Ordered By: Vignesh Tesfaye Admission Data Admit Date/Time: 11/18/22 17:33 Attending Provider: Vignesh Tesfaye Admit Provider: Oleg Jensen Primary Care Provider: Olayinka Barron Other Providers: Oleg Jensen ; Chapincito Duran Other Interventions: Discharge Summary Assessment (RN) Last Done: 11/19/22 16:10 Coding Level of Care Code 64949 INP/OBS DISCH >30 MIN Diagnoses GUERRERO (dyspnea on exertion) R06.00 CAD, multiple vessel I25.10 Hypothyroidism E03.9 Diabetes mellitus, type 2 E11.9 Hypertension I10 Hyperlipidemia E78.5 GERD (gastroesophageal reflux disease) K21.9
--- NOTE | 2022-11-19 16:01 | Cardiology Consultation ---
Date of Consultation November 19, 2022 Assessment & Plan (1) Exertional dyspnea: (2) CAD, multiple vessel: (3) Bradycardia with 41-50 beats per minute: Plan 1. Dyspnea on exertion: No evidence of pulmonary vascular congestion. His symptoms were not exclusively dyspnea, but he did have some exercise intolerance, fatigue and mild dizziness. I am concerned he has an element of chronotropic incompetence. He has bradycardia at baseline did report lower heart rates after activity. He also related a story of being on a treadmill at a local gym and not being able to get his heart rate above 90 beats per minute. I did have [place] walk around [place]. He did have some increase in heart rate to 70 beats per minute. He had some mild dizziness at this time. His beta-yamilex was held today. I do think he needs his beta-yamilex given his history of coronary disease and angina. I think we will perform more formal exercise testing in order to evaluate his chronotropic response. 2. Coronary disease: History of severe coronary artery disease and bypass. Curiously, no anginal symptoms recently. He had his nitrates increased a few months ago and seems to be feeling well in that regard. No evidence of ischemia by report or objectively. He will continue aggressive secondary prevention. 3. Bradycardia: Sinus No echocardiogram was performed today. This was in anticipation of a stress echocardiogram which could not be performed immediately. Will defer this evaluation to the outpatient setting. I do not believe he has pulmonary vascular congestion or reduced LV function causing his current symptoms History of Present Illness Reason for Consultation: Dyspnea on exertion, fatigue Requesting Physician: Camila Attending Physician: Vignesh Tesfaye History of Present Illness The patient is a 76-year-old gentleman with a history of coronary artery disease and surgical revascularization will also suffers from angina. Patient states that over the past 2 days he has had some difficulty with activity. He on 2 occasions he was out mowing his lawn behind a self-propelled lawnmower when he became very tired and weak. This was associated with some mild dyspnea. After approximately 30 minutes he had to go in and rest and he was fatigued through the rest of the day. He did not have associated chest pain. He had some very mild dizziness. No presyncope or syncope. He did measure his heart rate and blood pressure after exercise. He noted a high blood pressure but a heart rate in the 40s. He does have a history of angina. However, he states that this is very rare recently. Generally he is not bothered by exertional chest pain. He has not taken any supplemental nitroglycerin. No sense of palpitation. No lower extremity edema. Allergies Allergy/AdvReac Type Severity Reaction Status Date / Time morphine Allergy Intermediate Itchy Verified 11/18/22 17:15 Home Medications Medication Instructions Recorded Confirmed Type aspirin 81 mg tablet,delayed 81 mg PO QAM 03/29/18 11/18/22 History release cyanocobalamin (vitamin B-12) 5,000 mcg sublingual QAM 02/14/19 11/18/22 History 5,000 mcg sublingual tablet nitroglycerin 0.4 mg sublingual 0.4 mg sublingual Q5M PRN Angina 09/04/19 11/18/22 Rx tablet #25 tabs ondansetron 4 mg disintegrating 4 mg PO Q6H PRN nausea and 07/10/21 11/18/22 Rx tablet vomiting #14 tabs ranolazine 500 mg tablet,extended 500 mg PO BID #180 tabs 05/31/22 11/18/22 Rx release,12 hr glipizide 10 mg tablet 10 mg PO QAM #90 tabs 06/17/22 11/18/22 Rx hydrochlorothiazide 25 mg tablet 25 mg PO QAM #90 tabs 06/17/22 11/18/22 Rx isosorbide mononitrate 60 mg 60 mg PO DAILY #90 tabs 06/17/22 11/18/22 Rx tablet,extended release 24 hr levothyroxine 50 mcg capsule 50 mcg PO QAM #90 caps 06/17/22 11/18/22 Rx metformin 1,000 mg tablet 1,000 mg PO BIDM #180 tabs 06/17/22 11/18/22 Rx pantoprazole 40 mg tablet,delayed 40 mg PO QAM #90 tabs 06/17/22 11/18/22 Rx release rosuvastatin 10 mg tablet (Crestor) 10 mg PO HS #90 tabs 06/17/22 11/18/22 Rx trazodone 100 mg tablet 100 mg PO HS #90 tabs 06/17/22 11/18/22 Rx carvedilol 25 mg tablet 25 mg PO BID #180 tabs 06/23/22 11/18/22 Rx citalopram 20 mg tablet 20 mg PO DAILY #90 tabs 06/24/22 11/18/22 Rx fluticasone propionate 50 1 spray intranasal DAILY PRN 06/24/22 11/18/22 Rx mcg/actuation nasal Congestion #16 grams spray,suspension Patient History Medical History Allergic rhinitis CAD, multiple vessel Chronic back pain Depression Diabetes mellitus, type 2 GERD (gastroesophageal reflux disease) History of colon polyps Hyperlipidemia Hypertension Hypothyroidism Kidney stones Surgical History [place] 07[place]2002, [place] [place] [facility] [place] of [place]oscopy History of coronary artery bypass graft (2002--triple [place] [facility] [place] Duran History of heart artery stent 07/[address] [facility] [place] of revision of total replacement of left knee joint x2 History of tonsillectomy and adenoidectomy History of tooth extraction History of total left knee replacement (TKR) Hx of arthroscopy of left knee x2 Family History Father No problems noted. Mother No problems noted. 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 Mood and affect appeared normal. He answered all questions appropriately. HEENT: Pupils are equal and reactive to light and accommodation. Extraocular movements are intact. The sclerae are anicteric. Neuro: Cranial nerves intact Lungs: Clear to auscultation bilaterally. He has good air movement without use of accessory muscles. No rales wheezes or rhonchi. Cardiac: Heart demonstrates a regular rate and rhythm. Normal S1 and S2. No murmurs on examination. Pulses: The patient has palpable radial pulses bilaterally that are equal in intensity Extremities: There was no evidence of hypoperfusion. There is no cyanosis or clubbing. There is no edema. Skin: I did not appreciate any rashes on examination today. Results & Data Vital Signs (Past 12 Hours) Vital Signs Temp Pulse Resp BP Pulse Ox O2 Del Method 11/19/22 14:58 36.4 C L 52 L 18 178/71 H 96 Room Air 11/19/22 10:51 36.7 C 55 L 18 171/74 H 95 Room Air 11/19/22 07:10 36.4 C L 55 L 19 163/76 H 91 Room Air 11/19/22 04:40 36.6 C 55 L 18 141/61 H 92 Room Air Laboratory Results Abnormal Lab Results 11/18/22 11/18/22 11/18/22 15:10 15:10 18:10 WBC RBC Hgb Hct MCV MCH MCHC RDW Std Deviation RDW Coeff of Kasey Plt Count MPV Immature Gran % (Auto) Neut % (Auto) Lymph % (Auto) [place] % (Auto) Eos % (Auto) Baso % (Auto) Neut # (Auto) Lymph # (Auto) [place] # (Auto) Eos # (Auto) Baso # (Auto) Immature Gran # (Auto) PT 10.9 INR 1.0 APTT 28.8 PTT Ratio 1.0 Sodium 133 L Potassium 4.1 Chloride 96 L Carbon Dioxide 25 Anion Gap 12 H BUN 26 H Creatinine 1.88 H Est Cr Clr Drug Dosing 37.3 Est GFR ( Amer) 39.6 Est GFR (Non-Af Amer) 34.2 BUN/Creatinine Ratio 13.8 Glucose 104 H POC Glucose Calcium 9.4 Magnesium Total Bilirubin 0.4 AST 16 ALT 9 Alkaline Phosphatase 46 Troponin I High Sens 8.6 Total Protein 7.3 Albumin 4.2 Globulin 3.1 Albumin/Globulin Ratio 1.4 TSH Free T4 SARS-CoV-2, RNA, NAAT NEGATIVE 11/18/22 11/18/22 11/18/22 18:11 18:36 18:40 WBC RBC Hgb Hct MCV MCH MCHC RDW Std Deviation RDW Coeff of Kasey Plt Count MPV Immature Gran % (Auto) Neut % (Auto) Lymph % (Auto) [place] % (Auto) Eos % (Auto) Baso % (Auto) Neut # (Auto) Lymph # (Auto) [place] # (Auto) Eos # (Auto) Baso # (Auto) Immature Gran # (Auto) PT INR APTT PTT Ratio Sodium Potassium Chloride Carbon Dioxide Anion Gap BUN Creatinine Est Cr Clr Drug Dosing Est GFR ( Amer) Est GFR (Non-Af Amer) BUN/Creatinine Ratio Glucose POC Glucose 60 L* 115 H Calcium Magnesium Total Bilirubin AST ALT Alkaline Phosphatase Troponin I High Sens 8.1 Total Protein Albumin Globulin Albumin/Globulin Ratio TSH Free T4 SARS-CoV-2, RNA, NAAT 11/18/22 11/18/22 11/19/22 18:40 20:09 06:28 WBC 6.79 RBC 4.29 L Hgb 13.4 L Hct 39.5 L MCV 92.1 MCH 31.2 MCHC 33.9 RDW Std Deviation 43.7 RDW Coeff of Kasey 12.9 Plt Count 208 MPV 10.2 Immature Gran % (Auto) 0.3 Neut % (Auto) 63.0 Lymph % (Auto) 20.0 [place] % (Auto) 13.4 Eos % (Auto) 2.7 Baso % (Auto) 0.6 Neut # (Auto) 4.28 Lymph # (Auto) 1.36 [place] # (Auto) 0.91 H Eos # (Auto) 0.18 Baso # (Auto) 0.04 Immature Gran # (Auto) 0.02 PT INR APTT PTT Ratio Sodium Potassium Chloride Carbon Dioxide Anion Gap BUN Creatinine Est Cr Clr Drug Dosing Est GFR ( Amer) Est GFR (Non-Af Amer) BUN/Creatinine Ratio Glucose POC Glucose 117 H Calcium Magnesium Total Bilirubin AST ALT Alkaline Phosphatase Troponin I High Sens Total Protein Albumin Globulin Albumin/Globulin Ratio TSH 4.914 H Free T4 0.82 SARS-CoV-2, RNA, NAAT 11/19/22 11/19/22 11/19/22 06:28 06:28 07:07 WBC RBC Hgb Hct MCV MCH MCHC RDW Std Deviation RDW Coeff of Kasey Plt Count MPV Immature Gran % (Auto) Neut % (Auto) Lymph % (Auto) [place] % (Auto) Eos % (Auto) Baso % (Auto) Neut # (Auto) Lymph # (Auto) [place] # (Auto) Eos # (Auto) Baso # (Auto) Immature Gran # (Auto) PT 11.1 INR 1.0 APTT PTT Ratio Sodium 135 L Potassium 3.5 Chloride 98 Carbon Dioxide 30 Anion Gap 7 BUN 23 Creatinine 1.62 H Est Cr Clr Drug Dosing 43.2 Est GFR ( Amer) 47.4 Est GFR (Non-Af Amer) 40.9 BUN/Creatinine Ratio 14.2 Glucose 86 POC Glucose 97 Calcium 9.3 Magnesium 1.8 Total Bilirubin 0.5 AST 14 ALT 8 Alkaline Phosphatase 42 Troponin I High Sens Total Protein 6.7 Albumin 3.8 Globulin 2.9 Albumin/Globulin Ratio 1.3 TSH Free T4 SARS-CoV-2, RNA, NAAT 11/19/22 11:12 WBC RBC Hgb Hct MCV MCH MCHC RDW Std Deviation RDW Coeff of Kasey Plt Count MPV Immature Gran % (Auto) Neut % (Auto) Lymph % (Auto) [place] % (Auto) Eos % (Auto) Baso % (Auto) Neut # (Auto) Lymph # (Auto) [place] # (Auto) Eos # (Auto) Baso # (Auto) Immature Gran # (Auto) PT INR APTT PTT Ratio Sodium Potassium Chloride Carbon Dioxide Anion Gap BUN Creatinine Est Cr Clr Drug Dosing Est GFR ( Amer) Est GFR (Non-Af Amer) BUN/Creatinine Ratio Glucose POC Glucose 158 H Calcium Magnesium Total Bilirubin AST ALT Alkaline Phosphatase Troponin I High Sens Total Protein Albumin Globulin Albumin/Globulin Ratio TSH Free T4 SARS-CoV-2, RNA, NAAT Diagnostic Findings Did not reveal any evidence of pulmonary edema. No pneumothorax. Cardiac catheterization performed in 2019 revealed patent bypass grafts to the LAD, diagonal, obtuse marginal and PDA. There was disease in a acute marginal branch. 12/24/2016: Preserved LV systolic function with ejection fraction of 65-70%. Stage I diastolic dysfunction. Mild left atrial dilation ECG Additional Comments: Sinus bradycardia PG Care Time/CCT Total # of Minutes Spent Total Time Spent with Patient: Total time spent is greater than 50% in coordination of care (as documented) at patient's floor/unit and/or counseling patient: Coding Level of Care Code 31856 INT INP/OBS CARE 3/75MIN Diagnoses Exertional dyspnea R06.09 CAD, multiple vessel I25.10 Bradycardia with 41-50 beats per minute R00.1
== END 2022-11-19 16:25 | disposition home or self-care (01) | DRG 204 ==
LOC: ED 14:55 → SUATTDRO 17:33 → 2S 17:33 → INTOOBSV 17:33 → 2S 19:12